=== PATIENT | female | born 1970 | race Caucasian/White ===

== ENCOUNTER 2017-08-21 17:45 | Emergency (ER) | payer MEDICARE, OTHER ==
[~2017-08-21] VITALS: Ht 165.1 cm; Wt 54.4 kg
[~2017-08-21 17:45] MED LIST: AMBIEN10 MG PO; COLACE100 M1 PO; ESTRADIOL1 MG PO; NORCO 10-325 T1 EACH PO; SOMA350 MG PO; ZOLOFT100 MG PO
[2017-08-21] MEDS ORDERED: KETOROLAC TROMETHAMINE 30 MG/ML VIAL IV STA (18:04)
--- NOTE | 2017-08-21 18:44 | Diagnostic Imaging Report ---
EXAM: XR CHEST 1 VIEW DATE: 08/21/2017 6:03 PM INDICATION: Fever COMPARISON: 01/10/2017 FINDINGS: Lines and Tubes: None Heart and Mediastinum: No acute findings. Lungs and Pleura: Minimal opacities in the lung bases statistically represent atelectasis, however, infectious process could have a similar appearance. Bones and Soft Tissues: No acute findings. IMPRESSION: 1. Probable basilar atelectasis. Signed by: Dr. Jaya Durant MD on 08/21/2017 6:40 PM
[2017-08-21 19:13] LABS: BASOPHILS # (AUTO) 0.1 (0.0-0.1); BASOPHILS % 0.9 % (0.0-1.0); EOSINOPHILS # (AUTO) 0.1 (0.0-0.4); EOSINOPHILS % 0.9 % (0.0-6.0); HEMATOCRIT 34.6 % (34.2-44.1); HEMOGLOBIN 11.2 g/dL (12.0-16.0); LYMPHOCYTES % 30.1 % (18.0-39.1); MEAN CORPUSCULAR HEMOGLOBIN 32.6 pg (28-32); MEAN CORPUSCULAR HGB CONC 32.4 g/dL (31-35); MEAN CORPUSCULAR VOLUME 100.6 fL (81-99); MONOCYTES # (AUTO) 0.7 (0.2-0.8); MONOCYTES % 10.8 % (4.4-11.3); NEUTROPHILS # (AUTO) 3.8 (2.1-6.9); NEUTROPHILS % 57.2 % (38.7-80.0); PLATELET COUNT 340 x10e3/uL (140-360); RED BLOOD COUNT 3.44 x10e6/uL (3.6-5.1)
[2017-08-21 19:33] LABS: ALANINE AMINOTRANSFERASE 7 IU/L (0-55); ALBUMIN 3.4 g/dL (3.5-5.0); ALBUMIN/GLOBULIN RATIO 1.2 (0.8-2.0); ALKALINE PHOSPHATASE 57 IU/L (40-150); ANION GAP 13.2 mmol/L (8-16); BLOOD UREA NITROGEN 16 mg/dL (7-26); BUN/CREATININE RATIO 21 (6-25); CALCIUM 8.2 mg/dL (8.4-10.2); CARBON DIOXIDE 24 mmol/L (22-29); CHLORIDE 103 mmol/L (98-107); CREATINE KINASE 24 IU/L (29-168); CREATININE, SERUM 0.76 mg/dL (0.57-1.11); EST GLOMERULAR FILTRATION RATE > 60 ML/MIN (60-); GLUCOSE 96 mg/dL (74-118); LIPASE 57 U/L (8-78); POTASSIUM 4.2 mmol/L (3.5-5.1); SODIUM 136 mmol/L (136-145)
[2017-08-21 19:40] LABS: TROPONIN I < 0.001 ng/mL (0-0.300)
[2017-08-21 20:10] LABS: BILIRUBIN,URINE NEGATIVE (NEGATIVE); CLARITY,URINE CLEAR (CLEAR); COLOR,URINE YELLOW (YELLOW); KETONES,URINE NEGATIVE (NEGATIVE); LEUKOCYTE ESTERASE ,URINE NEGATIVE (NEGATIVE); NITRITE,URINE NEGATIVE (NEGATIVE); PROTEIN,URINE DIPSTICK NEGATIVE (NEGATIVE); URINE UROBILINOGEN 0.2 mg/dL (0.2 - 1)
[2017-08-21] MEDS ORDERED: CARAFATE1 GM PO (20:10)
[2017-08-21] MEDS ORDERED: GABAPENTIN300 MG PO (20:10)
[2017-08-21] MEDS ORDERED: TYLENOL325 MG PO (20:10)
[2017-08-21 20:30] LABS: BACTERIA,URINE FEW /HPF; EPITHELIAL CELLS,URINE MODERATE /LPF; RBC,URINE 0-5 /HPF (0-5); WBC,URINE (MAN) 0-5 /HPF (0-5)
[2017-08-21 21:52] VITALS: BP 124/65
== END 2017-08-21 21:53 | disposition home or self-care (01) ==
LOC: ER 17:45
DX: J06.9 Acute upper respiratory infection, unspecified (principal); J45.909 Unspecified asthma, uncomplicated; Z85.828 Personal history of other malignant neoplasm of skin; K57.92 Diverticulitis of intestine, part unspecified, without perforation or abscess without bleeding; G89.29 Other chronic pain
CPT/HCPCS: 36415; 71010; 80053; 81001; 82550; 82553; 83690; 84484; 84702; 85025; 87086; 87400; 93005; 99284; J1885

== ENCOUNTER 2019-04-06 05:34 | Inpatient (IN) | payer MEDICARE, OTHER ==
[~2019-04-06] VITALS: Ht 165.1 cm; Wt 81.2 kg
[~2019-04-06 05:34] MED LIST changes: +CARAFATE1 GM PO; +GABAPENTIN300 MG PO; +TYLENOL325 MG PO
[2019-04-06] MEDS ORDERED: SODIUM CHLORIDE 0.9% 1000ML 1,000 ML IV STA (05:35)
[2019-04-06] MEDS ORDERED: ONDANSETRON HCL INJ 2MG/ML 2ML 2 MG/ML VIAL IV STA (05:35)
[2019-04-06] MEDS ORDERED: MORPHINE SULFATE INJ 4 MG/ML INJ 1ML IV STA (05:35)
--- OUTSIDE RECORDS SUMMARY | 2019-04-06 05:37 | XMS REPORT ---
Author Author Zahira Diaz Organization [employer] Address Unknown Phone Unavailable Care Team Providers Care Associate Editor Name Role Phone Zahira Diaz CP Unavailable Allergies No Known Allergies Problems Problem Type Condition Code Onset Dates Condition Status Problem Inflammatory arthritis M19.90 Active Medications No Known Medications Results No Known Results Summary Purpose [employer] Submission
--- OUTSIDE RECORDS SUMMARY | 2019-04-06 05:37 | XMS REPORT ---
Author Author Zahira Diaz Organization [employer] Address Unknown Phone Unavailable Care Team Providers Care Darkroom Technician Name Role Phone Zahira Diaz CP Unavailable Allergies, Adverse Reactions, Alerts Substance Reaction Event Type N.K.D.A. Info Not Available Non Drug Allergy Encounters Encounter Location Date [facility] November 05, 2015 Problems Problem Type Condition ICD-9 Code Onset Dates Condition Status Assessment Chronic pain G89.29 Active Assessment Lumbago M54.5 Active Assessment Cervicalgia M54.2 Active Assessment Radicular pain M54.10 Active Medications Medication Code System Code Instructions Start Date End Date Status Dosage Lyrica MEDISPAN [address]-31 100 MG Orally Twice a day November 05, 2015 Active 1 capsule Soma MEDISPAN [address]-23 250 MG Orally Four times a day Active 1 tablet as needed Gabapentin MEDISPAN [address]-41 600 MG Orally Three times a day Active 1 capsule Meloxicam MEDISPAN [address]-33 15 MG Orally Once a day Active 1 tablet Omeprazole MEDISPAN [address]-59 10 MG Orally Once a day Active 2 capsules [place] MEDISPAN [address]-99 5-325 MG Orally every 6 hrs Active 1 tablet as needed Social History Social History Element Qualifiers Date Reported Smoking status: . Are you a: Current Smoker November 05, 2015 alcohol no. November 05, 2015 Vital Signs Date/Time: November 05, 2015 Height 65 in Blood Pressure Diastolic 73 mm Hg Blood Pressure Systolic 118 mm Hg Weight 155.4 lbs Summary Purpose [employer] Submission
--- OUTSIDE RECORDS SUMMARY | 2019-04-06 05:37 | XMS REPORT ---
Author Author Zahira Diaz Organization [employer] Address Unknown Phone Unavailable Care Team Providers Care Stiff Straw Hat Washer Name Role Phone Zahira Diaz CP Unavailable Allergies, Adverse Reactions, Alerts Substance Reaction Event Type N.K.D.A. Info Not Available Non Drug Allergy Encounters Encounter Location Date pain [facility] November 05, 2015 [facility] November 26, 2015 Problems Problem Type Condition ICD-9 Code Onset Dates Condition Status Assessment Chronic pain G89.29 Active Assessment Lumbago M54.5 Active Assessment Cervicalgia M54.2 Active Assessment Pain of left hand M79.642 Active Assessment Radicular pain M54.10 Active Assessment Pain in right hand M79.641 Active Medications Medication Code System Code Instructions Start Date End Date Status D[facility] [address]-84 15 MG Orally Once a day Active 1 [facility] [address]-32 100 MG Orally Twice a day Active 1 capsule [place] [facility] [address]-97 10-325 MG Orally every 6 hrs Active 1 tablet as needed Soma MEDISPAN [address]-97 350 MG Orally Four times a day Active 1 tablet as needed [facility] [address]-88 40 MG Orally Once a day Active 1 capsule Gabapentin [facility] [address]-84 600 MG Orally Three times a day Active 1 capsule Lyrica [facility] [address]-83 100 MG Orally Twice a day November 05, 2015 Active 1 capsule Social History Social History Element Qualifiers Date Reported Smoking status: . Are you a: Current Smoker November 26, 2015 alcohol no. November 26, 2015 Vital Signs Date/Time: November 26, 2015 Height 65 in Blood Pressure Diastolic 69 mm Hg Blood Pressure Systolic 106 mm Hg Weight 159 lbs Summary Purpose [employer] Submission
--- OUTSIDE RECORDS SUMMARY | 2019-04-06 05:37 | XMS REPORT | Continuity of Care Document ---
Author Author Shoulder Options [facility] [place] [employer] Address Unknown Phone Unavailable Care Team Providers Care Shelf Filler Name Role Phone [facility] [employer] Information Exchange Unavailable Unavailable Problems Problem Status Onset Date Classification Date Reported Comments Source Inflammatory arthritis Active Problem 10/22/2016 Zahira Najam Stiffness of right wrist joint Active Diagnosis 12/16/2015 Zahira Najam Pain in right wrist Active Diagnosis 12/16/2015 Zahira Najam Chronic pain Active Diagnosis 04/15/2016 Zahira Najam Lumbago Active Diagnosis 04/15/2016 Zahira Najam Cervicalgia Active Diagnosis 11/27/2015 Zahira Najam Radicular pain Active Diagnosis 11/27/2015 Zahira Najam Pain of left hand Active Diagnosis 11/27/2015 Zahira Najam Pain in right hand Active Diagnosis 11/27/2015 Zahira Najam High risk medication use Active Diagnosis 04/15/2016 Zahira Najam Counseling NOS Active Diagnosis 04/15/2016 Zahira Najam Nasal congestion Active Diagnosis 04/15/2016 Zahira Najam Rash Active Diagnosis 04/15/2016 Zahira Najam Medications Medication Details Route Status Patient Instructions Ordering Provider Order Date Source Triamcinolone Acetonide 1 application to affected area Externally Active 0.5 % Externally Twice a day to feet Najam 04/14/2016 Zahira Najam Hydroxychloroquine Sulfate 2 tabs Orally Active 200 MG Orally Once a day Najam 01/07/2016 Zahira Najam Lyrica 1 capsule Orally Active 100 MG Orally Twice a day Najam 11/05/2015 Zahira Najam Lyrica 1 capsule Orally Active 100 MG Orally tid Najam Zahira Najam Soma 1 tablet as needed Orally Active 250 MG Orally Four times a day Naja Zahira Najam Gabapentin 1 capsule Orally No Longer Active 600 MG Orally Three times a day Najam Zahira Najam Meloxicam 1 tablet Orally Active 15 MG Orally Once a day Najam Zahira Najam Omeprazole 2 capsules Orally Active 10 MG Orally Once a day Narome Zahira Diaz [place] 1 tablet as needed Orally Active 5-325 MG Orally every 6 hrs Najam Zahira Najam [place] 1 tablet as needed Orally Active 10-325 MG Orally every 6 hrs Narome Zahira Diaz Soma 1 tablet as needed Orally Active 350 MG Orally Four times a day Naja Zahira Naambrose Omeprazole 1 capsule Orally Active 40 MG Orally Once a day Narome Zahira Diaz Lyrica TAKE 1 CAPSULE orally Active 100 orally Twice a day Naja Zahira Naambrose Lyrica TAKE 1 CAPSULE orally Active 100 orally Three times a day Benita Zahira Diaz Control 1 tab Oral Active Oral Benita Zahira Joy Vitamin B-12 Unknown intramuscularly Active intramuscularly Once a week Benita Zahira Joy Hydroxychloroquine Sulfate 2 tabs Orally Active 200 MG [facility]ally [facility] Allergies, Adverse Reactions, Alerts Substance Category Reaction Severity Reaction type Status Date Reported Comments Source N.K.D.A. Adverse Reaction Info Not Available Adverse Reaction Active 04/14/2016 Zahira Diaz Immunizations No Data Provided for This Section Results No Data Provided for This Section Pathology Reports No Data Provided for This Section Diagnostic Reports No Data Provided for This Section Consultation Notes No Data Provided for This Section Discharge Summaries No Data Provided for This Section History and Physicals No Data Provided for This Section Vital Signs Vital Sign Value Date Comments Source Height 65 04/14/2016 Zahira Najam Diastolic (mm Hg) 76 04/14/2016 Zahira Najam Systolic (mm Hg) 124 04/14/2016 Zahira Najam Weight 156.6 04/14/2016 Zahira Najam Height 65 01/07/2016 Zahira Najam Diastolic (mm Hg) 61 01/07/2016 Zahira Najam Systolic (mm Hg) 99 01/07/2016 Zahira Najam Weight 160.6 01/07/2016 Zahira Najam Height 65 12/15/2015 Zahira Najam Diastolic (mm Hg) 67 12/15/2015 Zahira Najam Systolic (mm Hg) 129 12/15/2015 Zahira Najam Weight 159 12/15/2015 Zahira Najam Height 65 11/26/2015 Zahira Diaz Diastolic (mm Hg) 69 11/26/2015 Zahira Diaz Systolic (mm Hg) 106 11/26/2015 Zahira Diaz Weight 159 11/26/2015 Zahira Diaz Height 65 11/05/2015 Zahira Diaz Diastolic (mm Hg) 73 11/05/2015 Zahira Diaz Systolic (mm Hg) 118 11/05/2015 Zahira Diaz Weight 155.4 11/05/2015 Zahira Diaz Encounters Location Location Details Encounter Type Encounter Number Reason For Visit Attending Provider ADM Date DC Date Status Source [facility] pain [facility] body [id number] 11/05/2015 11/05/2015 Zahiraruben Joy [facility] body [id number] 11/05/2015 11/05/2015 [facility] pain all over body [id number] 11/05/2015 11/05/2015 Zahira [facility] pain all over body [id number] 11/05/2015 11/05/2015 [facility] pain all over body [id number] 11/05/2015 11/05/2015 Zahira [facility] pain all over body [id number] 11/05/2015 11/05/2015 Zahira [facility] pain all over body [id number] 11/05/2015 11/05/2015 Zahira [facility] pain all over body [id number] 11/05/2015 11/05/2015 Zahiraruben Joy [facility] Follow up- Labs [id number] 11/26/2015 11/26/2015 [facility] Follow up- Labs [id number] 11/26/2015 11/26/2015 [facility] Follow up- Labs [id number] 11/26/2015 11/26/2015 [facility] Follow up- Labs [id number] 11/26/2015 11/26/2015 [facility] Follow up- Labs [id number] 11/26/2015 11/26/2015 [facility] Follow up- Labs [id number] 11/26/2015 11/26/2015 [facility] Follow up- Labs [id number] 11/26/2015 11/26/2015 [facility] Right Wrist MRI [id number] 12/15/2015 12/15/2015 [facility] Right Wrist MRI [id number] 12/15/2015 12/15/2015 [facility] Right Wrist MRI [id number] 12/15/2015 12/15/2015 [facility] Right Wrist MRI [id number] 12/15/2015 12/15/2015 [facility] Right Wrist MRI [id number] 12/15/2015 12/15/2015 [facility] Right Wrist MRI [id number] 12/15/2015 12/15/2015 [facility] Follow up [id number] 01/07/2016 01/07/2016 [facility] Follow up [id number] 01/07/2016 01/07/2016 [facility] Follow up [id number] 01/07/2016 01/07/2016 [facility] Follow up [id number] 01/07/2016 01/07/2016 [facility] Follow up [id number] 01/07/2016 01/07/2016 [facility] pain - needs direction [id number] 02/16/2016 02/16/2016 [facility] pain - needs direction [id number] 02/16/2016 02/16/2016 [facility] pain - needs direction [id number] 02/16/2016 02/16/2016 [facility] pain - needs direction [id number] 02/16/2016 02/16/2016 [facility] Lyrica refill [id number] 03/12/2016 03/12/2016 [facility] Lyrica refill [id number] 03/12/2016 03/12/2016 [facility] Lyrica refill [id number] 03/12/2016 03/12/2016 [facility] lyrica rx [id number] 04/05/2016 04/05/2016 [facility] lyrica rx [id number] 04/05/2016 04/05/2016 [facility] Follow up 3 Month [id number] 04/14/2016 04/14/2016 Zahira Diaz Procedures No Data Provided for This Section Assessment and Plan No Data Provided for This Section Plan of Care No Data Provided for This Section Social History Social History Date Source Social History ElementQualifiersDate Reported Smoking status: . Are you a: Current Smoker Apr 14, 2016 alcohol no. Apr 14, 2016 04/14/2016 Zahira Diaz Family History No Data Provided for This Section Advance Directives No Data Provided for This Section Functional Status No Data Provided for This Section
--- OUTSIDE RECORDS SUMMARY | 2019-04-06 05:37 | XMS REPORT | Clinical Summary ---
Author Author [facility] Organization [facility] Address Unknown Phone Unavailable Care Team Providers Care Edge Blacker Name Role Phone Asked, No Pcp PCP Unavailable Allergies Not on File Medications End Date Status Medication Sig Dispensed Refills Start Date Active eszopiclone (LUNESTA) 2 Take 2 mg by 0 MG tablet mouth nightly. Take immediately before bedtime Active HYDROcodone-acetaminophen Take 1 tablet 0 (NORCO) 10-325 mg per by mouth tablet every 6 (six) hours. Active carisoprodol (SOMA) 350 Take 350 mg 0 MG tablet by mouth 3 (three) times a day. Active gabapentin (NEURONTIN) Take 600 mg 0 600 mg tablet by mouth 2 (two) times a day. Active medroxyPROGESTERone 150 Inject 150 mg 1 Syringe 6 06/02/201 mg/mL syringeIndications: into the 7 Encounter for shoulder, surveillance of thigh, or injectable contraceptive, buttocks Encounter for every 3 contraceptive management, (three) unspecified type months. Active omeprazole (PriLOSEC) 40 Take 1 180 capsule 1 MG capsuleIndications: capsule (40 7 Gastroesophageal reflux mg total) by disease with esophagitis mouth 2 (two) times a day. 08/03/2018 ondansetron ODT Take 1 tablet 30 tablet 0 (ZOFRAN-ODT) 4 MG (4 mg total) 8 disintegrating tablet by mouth every 8 (eight) hours as needed for nausea or vomiting for up to 10 days. 08/23/2018 atorvastatin (LIPITOR) 10 Take 4 120 tablet 0 MG tablet tablets (40 8 mg total) by mouth nightly for 30 days. 08/03/2018 guaiFENesin (ROBITUSSIN) Take 10 mL 473 mL 0 100 mg/5 mL syrup (200 mg 8 total) by mouth every 4 (four) hours as needed for congestion for up to 10 days. 08/24/2018 aspirin 81 mg chewable Chew 1 tablet 30 tablet 0 tablet (81 mg total) 8 daily for 30 days. 08/24/2018 nicotine (NICODERM CQ) 21 Place 1 patch 30 patch 0 mg/24 hr on the skin 8 daily for 30 days. 08/23/2018 albuterol (PROAIR Inhale 2 18 g 11 HFA,PROVENTIL puffs every 6 8 HFA,VENTOLIN HFA) 90 (six) hours mcg/actuation inhaler as needed for wheezing for up to 30 days. 07/29/2018 predniSONE (DELTASONE) 20 Take 1 tablet 5 tablet 0 mg tablet (20 mg total) 8 by mouth daily for 5 days. Active Problems Problem Noted Date Bronchitis with bronchospasm 07/23/2018 Gastroesophageal reflux disease 08/04/2017 Pleural effusion, bilateral 07/07/2017 Acute pulmonary edema 07/07/2017 Sepsis 07/04/2017 Pneumonia 07/04/2017 Acute encephalopathy 07/04/2017 Anemia 07/04/2017 Lactic acidosis 07/04/2017 Acute respiratory failure with hypoxemia 07/01/2017 Psychosis 06/30/2017 Sprain of medial collateral ligament of left knee 02/09/2017 Alcohol withdrawal 01/25/2017 RA (rheumatoid arthritis) 12/23/2016 Chronic midline low back pain with sciatica 12/23/2016 Acute gastric ulcer 12/23/2016 Encounters Care Team Description Date Type Specialty Steven Long MD Roberts, Daryl Rodriguez, Lety Dai MD Bronchitis with bronchospasm (Primary Dx); Hematemesis without nausea; Chest pain, unspecified type 07/23/2018 Emergency General Internal Medicine - 07/24/2018 07/23/2018 Travel Yordan Hughes MD Encounter for surveillance of injectable contraceptive; Encounter for contraceptive management, unspecified type 06/17/2018 Refill Family Medicine after 04/05/2018 Social History Date Tobacco Use Types Packs/Day Years Used Current Every Day Smoker Cigarettes 1.5 35 Smokeless Tobacco: Never Used Tobacco Cessation: Ready to Quit: No; Counseling Given: No Drinks/Week oz/Week Comments Alcohol Use 0 Glasses of wine 12 Cans of beer 0 Shots of liquor 12.0 Yes Sex Assigned at Date Recorded Not on file Industry Job Start Date Occupation Not on file Not on file Not on file Travel End Travel History Travel Start No recent travel history available. Last Filed Vital Signs Reading Time Taken Comments Vital Sign 127/63 07/24/2018 5:18 PM [facility] Blood Pressure 98 07/24/2018 5:18 PM [facility]IG [facility]ILLER Pulse 36.6 C (97.9 F) 07/24/2018 5:18 PM JIG [facility]ILLER Temperature 17 07/24/2018 5:18 PM JIG FILLER Respiratory Rate 97% 07/24/2018 5:18 PM [facility]IG FILLER Oxygen Saturation - - Inhaled Oxygen Concentration 74.5 kg (164 lb 3.9 oz) 07/23/2018 8:51 PM JIG [facility]ER Weight 165.1 cm (5' 5") 07/23/2018 8:51 PM JIG FILLER Height 27.33 07/23/2018 8:51 PM JIG FILLER Body Mass Index Plan of Treatment Health Maintenance Due Date Last Done Comments CERVICAL CANCER SCREENING 1991 INFLUENZA VACCINE 03/08/2019 Procedures Comments Procedure Name Priority Date/Time Associated Diagnosis CV STRESS TEST NUCLEAR Routine 07/24/2018 CARDIO 4:40 PM JIG [facility]ILLER TROPONIN Timed 07/24/2018 3:06 PM [facility]ER ECHOCARDIOGRAM 2D Routine 07/24/2018 COMPLETE W MMODE SPECTRAL 1:40 PM JIG FILLER COLOR DOPPLER ([id number]) TROPONIN Timed 07/24/2018 9:05 AM JIG FILLER TROPONIN Timed 07/24/2018 4:31 AM JIG FILLER ESTIMATED GFR Timed 07/24/2018 4:31 AM JIG FILLER HEMOGLOBIN A1C Timed 07/24/2018 4:31 AM JIG FILLER LIPID PANEL Timed 07/24/2018 4:31 AM JIG FILLER HC COMPLETE BLD COUNT Timed 07/24/2018 W/AUTO DIFF 4:31 AM JIG FILLER BASIC METABOLIC PANEL Timed 07/24/2018 4:[address] ABDOMEN PELVIS WO STAT 07/24/2018 CONTRAST 2:15 AM JIG FILLER LACTIC ACID LEVEL, SEPSIS Timed 07/23/2018 - NOW AND REPEAT 2X EVERY 11:55 PM JIG FILLER 3 HOURS TROPONIN Timed 07/23/2018 11:55 PM JIG FILLER LACTIC ACID LEVEL, SEPSIS Timed 07/23/2018 - NOW AND REPEAT 2X EVERY 8:10 PM JIG FILLER 3 HOURS TROPONIN Timed 07/23/2018 8:10 PM JIG FILLER ECG 12-LEAD STAT 07/23/2018 7:44 PM JIG FILLER XR CHEST 2 VW STAT 07/23/2018 5:04 PM JIG [facility]ER LACTIC ACID LEVEL, SEPSIS STAT 07/23/2018 - NOW AND REPEAT 2X EVERY 3:50 PM JIG FILLER 3 HOURS PARTIAL THROMBOPLASTIN STAT 07/23/2018 TIME (PTT) 3:50 PM JIG FILLER PROTHROMBIN TIME WITH INR STAT 07/23/2018 3:50 PM JIG FILLER ESTIMATED GFR STAT 07/23/2018 3:50 PM JIG FILLER B NATRIURETIC PEPTIDE STAT 07/23/2018 3:50 PM JIG FILLER TROPONIN STAT 07/23/2018 3:50 PM JIG F[facility]ER COMPREHENSIVE METABOLIC STAT 07/23/2018 PANEL 3:50 PM JIG [facility]ILLER HC COMPLETE BLD COUNT STAT 07/23/2018 W/AUTO DIFF 3:50 PM JIG [facility]ILLER HCG QUALITATIVE, URINE Routine 07/23/2018 SCREEN 3:40 PM JIG FILLER URINE DRUGS OF ABUSE Routine 07/23/2018 SCREEN 3:40 PM [facility]IG [facility]ER URINALYSIS SCREEN AND STAT 07/23/2018 MICROSCOPY, WITH REFLEX 3:40 PM JIG FILLER TO CULTURE INFLUENZA ANTIGEN Routine 07/23/2018 3:40 PM J[facility]ER RESPIRATORY PATHOGEN Routine 07/23/2018 PANEL 3:40 PM JIG [facility]ER ECG 12-LEAD STAT 07/23/2018 3:23 PM JIG FILLER after 04/05/2018 Results * Cv stress test (07/24/2018 4:40 PM JIG FILLER) Resting HR 102 [facility] Resting BP 127 [facility] Peak MET 1.0 [facility] Achieved Protocol Name MINH [facility] Time in 00:01:01 [facility] Exercise Phase Max Systolic BP 143 [facility] Max Diastolic 71 [facility] BP Max Heart Rate 146 [facility] Max Predicted 173 [facility] Heart Rate Target HR (220 - Age)*100% [facility] Formula Test Indication Chest Discomfort [facility] Arrhy During Ex none [facility] ECG Interp Normal [facility] Before EX ECG Interp none [facility] During Ex Ex Summary Normal stress test [facility] Comment Chest Pain none [facility] Statement Overall HR appropriate [facility] Response to Exercise Overall BP normal resting BP - [facility] Response To appropriate response Exercise Reason for Protocol completed [facility] Termination Stress Test Normal stress test-No [facility] Impression significant ST changes noted; complaints of mild chest pressure, rated 3/10.-NE GATIVE STRESS TEST- Specimen Narrative Performed At Performing Organization Address City/State/Zipcode Phone Number [facility] M[facility] [address] [place] [address] * Troponin (07/24/2018 3:06 PM JIG FILLER) Only the most recent of 6 results within the time period is included. Troponin <0.30 0.00 - 0.30 ng/mL [place] [facility] Comment: RELIGION AMBRIZ 0.11 - 1.49 [facility] indicate increased risk of acute coronary syndrome. >=1.5 ng/ml Consistent with acute myocardial infarction. The diagnostic value of a single normal or non-diagnostic result is questionable.Serial samples at 2-6 hour intervals are required to rule out acute myocardial injury. Specimen Plasma specimen Performing Organization Address City/State/Zipcode Phone Number [facility] DEPARTMENT OF [address] [place] [address] PATHOLOGY AND GENOMIC MEDICINE [facility] [address] [place] [address] [facility] * Echocardiogram complete w contrast and 3D if needed (07/24/2018 1:40 PM JIG FILLER) Velocity Ratio 0.94 m/s [facility] (V1/V2) IVS,d 0.92 cm [facility] EF 53.51 % [facility] LVPWD,d 1.03 cm [facility] AoV Mean PG 5.99 mmHg [facility] AV LVOT peak 9.48 mmHg [facility] gradient MV mean 2.18 mmHg [facility] gradient MV valve area p 3.66 cm2 [facility] 1/2 method PV Pk Grad 7.49 mmHg [facility] E/A ratio 0.70 [facility] E wave 207.10 msec [facility] decelartion time LVOT Diam,S 2.00 cm [facility] LVOT area 3.14 cm2 [facility] LVOT Vmax 1.61 m/s [facility] LVOT VTI 0.28 m [facility] AoV Peak PG 11.02 mmHg [facility] MV Peak E Tonio 0.63 m/s [facility] MV stenosis 60.06 ms [facility] pressure 1/2 time MV Peak A Tonio 0.90 m/s [facility] Ao Root 2.95 cm [facility] Diameter AoV Area, Vmax 2.91 cm2 [facility] AoV Area, VTI 2.59 cm2 [facility] AoV Vmax 1.72 m/s [facility] IVS/LVPW,2D 0.90 [facility] Left Atrium 3.81 cm [facility] Dimension Anterior LV,d 4.60 cm [facility] LV,s 3.33 cm [facility] PV VMAX 1.37 m/s [facility] TR Vpeak 2.43 mm/s [facility] MV E A ratio 0.71 [facility] TR pk grad 22.69 mmHg [facility] MR peak grad 4.13 mmHg [facility] Ao Root 2.95 cm [facility] Diameter LV SYS VOL 45.21 ml [facility] LV ABREU VOL 97.25 ml [facility] LA area s A4C 14.48 cm2 [facility] LA Vol MOD A4C 34.41 ml [facility] LV SV Teich 2D 52.05 ml [facility] LV Vol s Teich 45.21 ml [facility] PSAX MV Vmax 1.02 m [facility] MV VTI Tips 0.18 m [facility] AoV Vmn 1.15 [facility] IVS s 2D 1.21 [facility] LV FS Cube 2D 27.52 [facility] LV FS Teich 2D 27.52 [facility] AoV VTI 0.29 m [facility] LV EF,2D 61.92 % [facility] MV AE ratio 1.41 [facility] LVOT Vmn 1.03 [facility] Aov area Vmn 2.69 cm2 [facility] LVOT mean grad 4.93 mmHg [facility] MAX Pred HR 172.07 [facility] 85 of MPHR 146.26 [facility] Calc MPHR 172.07 bpm [facility] IVS pct thck 31.13 % [facility] PLAX LV SV Cube 2D 60.21 ml [facility] LV vol d cube 97.23 ml [facility] 2D LV vol s cube 37.02 ml [facility] 2D LVPW pct thck 17.35 % [facility] PLAX LVPW s PLAX 1.20 cm [facility] MV Decel slope 3.06 m/s2 [facility] Pred Exer Dur 9.21 [facility] R1 Pred METS R1 8.47 [facility] Specimen Narrative Performed At [facility] Left ventricular systolic function is normal. Spectral Doppler shows impaired relaxation pattern of left ventricular diastolic filling. Stage II diastolic dysfunction. Performing Organization Address City/[facility]/Zipcode Phone Number [facility] [address] [place] [address] * Estimated GFR (07/24/2018 4:31 AM JIG FILLER) Only the most recent of 2 results within the time period is included. Estimated GFR >=90 mL/min/1.73 m2 [facility] [facility] Comment: [facility] G1 >=90 Normal or high G2 60-89Mildly decreased [id number] Mildly to moderately decreased [id number] Moderately to severely decreased G4 15-29Severely decreased G5 <15Kidney failure The eGFR was calculated using the Chronic Kidney Disease Epidemiology Collaboration (CKD-EPI) equation. Interpretation is based on recommendations of the National Kidney Foundation-Kidney Disease Outcomes Quality Initiative (NKF-KDOQI) published in 2014. Specimen Plasma specimen Performing Organization Address City/State/Zipcode Phone Number [facility] DEPARTMENT OF [address] [place] [address] PATHOLOGY AND GENOMIC MEDICINE [facility] [address] [place], [place] [id number] [place] [address] * CBC with platelet and differential (07/24/2018 4:31 AM JIG FILLER) Only the most recent of 2 results within the time period is included. WBC 3.9 (L) 4.2 - 11.0 k/uL [facility] RBC 3.39 (L) 4.04 - 5.86 m/uL [facility] HGB 10.7 (L) 11.5 - 15.3 g/dL [facility] HCT 33.9 (L) 34.0 - 45.0 % [facility] MCV 100.0 (H) 80.0 - 98.0 fL [facility] MCH 31.6 27.0 - 34.0 pg [facility] MCHC 31.6 31.5 - 36.5 g/dL [facility] RDW - SD 60.8 (H) 37.0 - 51.0 fL [facility] MPV 9.2 7.4 - 10.4 fL [facility] Platelet count 235 150 - 400 k/uL [facility] Nucleated RBC 0.00 /100 WBC [facility] Neutrophils 81.2 (H) 36.0 - 66.0 % [facility] Lymphocytes 11.2 (L) 24.0 - 44.0 % [facility] Monocytes 6.5 (H) 0.0 - 6.0 % [facility] Eosinophils 0.0 0.0 - 6.0 % [facility] Basophils 0.3 0.0 - 1.2 % [facility] Immature 0.8 0.0 - 1.0 % [facility] granulocytes [facility] Specimen Blood Performing Organization Address City/[facility]/Zipcode Phone Number [facility] DEPARTMENT OF [address] [place] [phone] PATHOLOGY AND GENOMIC MEDICINE [address] * Hemoglobin A1c (07/24/2018 4:31 AM JIG FILLER) [facility] Hemoglobin A1C 4.8 4.0 - 6.0 % [facility] Comment: NAOMY AM[facility]RIZ [facility] Less than 6% - Goal of therapy for Type II Diabetes Less than 7%-Goal of therapy for Type I Diabetes Less than 8%-Accepta ble control for Type I or Type II Diabetes Greater than 8%-Unacceptabl e control; action indicated. ([id number]) Specimen Blood Performing Organization Address City/[facility]/Zipcode Phone Number [place] [address] [place] [phone] PATHOLOGY AND [facility] MEDICINE [address] * Lipid panel (07/24/2018 4:31 AM JIG FILLER) [facility] Cholesterol 229 (H) 0 - 199 mg/dL [facility] Triglycerides 56 0 - 149 mg/dL [facility] HDL cholesterol 137 40 - 9,999 mg/dL [facility] LDL cholesterol 101 (H)Comment: Result 0 - 99 mg/dL [facility] obtained by direct LDL [facility] Lipid panel See below [facility] interpretation Comment: [facility] Total Cholesterol [facility] (mg/dL) [facility] LDL Cholesterol (mg/dL) <200 Desirable <100 Optimal 200-239Borderline -[id number] 29Near or above optimal >=240High 130-159Borderline- high 160-189High >=190Very high HDL Cholesterol (mg/dL) Triglycerides (mg/dL) <40Low <150 Normal >=60 High 150-199Borderline- high 200-499High >=500Very high Risk Catergories that modify LDL goals. Risk Catergories LDL goal (mg/dL) CHD and CHD risk equivalent <100 (10-year risk >20%) Multiple (2+) risk factors <130 (10-year risk=<20%) 0-1 risk factors <160 (<10-year risk) Defining levels of lipids in metabolic syndrome Triglycerides >=150 mg/dL HDL Cholesterol Men <40 mg/dL Women <50 mg/dL Non-HDL cholesterol is a second target for therapy in persons with high triglycerides (>=200 mg/dL) Specimen Plasma specimen Performing Organization Address City/[facility] Phone Number [facility] DEPARTMENT [facility] [place] [address] PATHOLOGY AND GENOMIC MEDICINE [facility] [address] * Basic metabolic panel (07/24/2018 4:31 AM JIG FILLER) Sodium 138 135 - 150 mEq/L [facility] Potassium 4.2 3.5 - 5.0 mEq/L [facility] Chloride 104 98 - 112 mEq/L [facility] CO2 23 (L) 24 - 31 mmol/L [facility] Anion gap 11@ANIO 7 - 15 mEq/L [facility] BUN 10 7 - 18 mg/dL [facility] Creatinine 0.60 0.50 - 0.90 mg/dL [facility] Glucose 151 (H) 65 - 100 mg/dL [facility] Calcium 9.4 8.3 - 10.2 mg/dL [facility] Specimen Plasma specimen Performing Organization Address City/[facility]/Zipcode Phone Number [place] [address] [place] [address] PATHOLOGY AND GENOMIC MEDICINE [facility] [address] * CT Abdomen Pelvis Wo Contrast (07/24/2018 2:15 AM JIG FILLER) Specimen Narrative Performed At Examination:CT ABDOMEN PELVIS WO CONTRAST [facility] Clinical History: Abd paingastroenteritis or colitis suspected Comparison: None. Findings: CT scans are performed using radiation dose reduction techniques.Technical factors are evaluated and adjusted to ensure appropriate moderation of exposure.Automated dose management technology is applied to adjust radiation exposure while achieving a diagnostic quality image. CT scan of the abdomen and pelvis was performed without intravenous contrast. The liver, spleen, pancreas, and left adrenal gland are unremarkable. Right adrenal nodule is noted with Hounsfield unit measurement of 0 is consistent with adenoma. The kidneys are within normal limits without hydronephrosis or urinary calculus. The appendix is visualized and unremarkable. No bowel wall thickening or fat stranding is seen. No bowel dilatation is seen. Scattered colonic diverticuli are noted especially at the sigmoid colon but no surrounding fat stranding is seen. The patient is status post gastric surgery. No free air or fluid is seen. Urinary bladder is unremarkable. The visualized lung bases are clear. IMPRESSION: 1. Colonic diverticulosis without evidence of inflammation. 2. Right adrenal nodule most consistent with adenoma. 3. Otherwise no acute abnormality identified in the abdomen or pelvis. [facility]-[id number] Procedure Note Interface, Radiology Results Incoming - 07/24/2018 2:53 AM JIG FILLER Examination: CT ABDOMEN PELVIS WO CONTRAST Clinical History: Abd pain gastroenteritis or colitis suspected Comparison: None. Findings: CT scans are performed using radiation dose reduction techniques. Technical factors are evaluated and adjusted to ensure appropriate moderation of exposure. Automated dose management technology is applied to adjust radiation exposure while achieving a diagnostic quality image. CT scan of the abdomen and pelvis was performed without intravenous contrast. The liver, spleen, pancreas, and left adrenal gland are unremarkable. Right adrenal nodule is noted with Hounsfield unit measurement of 0 is consistent with adenoma. The kidneys are within normal limits without hydronephrosis or urinary calculus. The appendix is visualized and unremarkable. No bowel wall thickening or fat stranding is seen. No bowel dilatation is seen. Scattered colonic diverticuli are noted especially at the sigmoid colon but no surrounding fat stranding is seen. The patient is status post gastric surgery. No free air or fluid is seen. Urinary bladder is unremarkable. The visualized lung bases are clear. IMPRESSION: 1. Colonic diverticulosis without evidence of inflammation. 2. Right adrenal nodule most consistent with adenoma. 3. Otherwise no acute abnormality identified in the abdomen or pelvis. [facility]-[id number] Performing Organization Address City/State/Zipcode Phone Number [facility] [address] [place] [address] * Lactic acid level, SEPSIS - Now and repeat 2x every 3 hours (07/23/2018 11:55 PM JIG FILLER) Only the most recent of 3 results within the time period is included. Lactic acid 2.1 0.5 - 2.2 mmol/L [facility] Specimen Blood Performing Organization Address City/[facility] Phone Number [facility] OF [address] [place] [address] PATHOLOGY AND GENOMIC MEDICINE [facility] [address] * ECG 12 lead (07/23/2018 7:44 PM JIG FILLER) Only the most recent of 2 results within the time period is included. Ventricular 94 [facility] rate Atrial rate 94 [facility] HI interval 116 [facility] QRSD interval 90 [facility] QT interval 368 [facility] QTC interval 460 [facility] P axis 1 48 [facility] QRS axis 1 52 [facility] T wave axis 65 [facility] EKG impression Normal sinus rhythm-Normal [facility] ECG-In automated comparison with ECG of 23-JUL-2018 15:23,-No significant change was found- Specimen Narrative Performed At Performing Organization Address [facility] Phone Number [facility] [address] [place] [address] * XR Chest 2 Vw (07/23/2018 5:04 PM JIG FILLER) Specimen Narrative Performed At EXAMINATION:XR CHEST 2 VW [facility] CLINICAL HISTORY:Shortness of breath COMPARISON:November 06, 2017 IMPRESSION: 1.Lungs are clear and the heart size is normal. 2.The vessels are not congested. There are no pleural effusions. 3.There are postoperative changes in the lower cervical spine and upper abdomen. [facility]-[id number] Procedure Note Hm Interface, Radiology Results Incoming - 07/23/2018 5:16 PM JIG FILLER EXAMINATION: XR CHEST 2 VW CLINICAL HISTORY: Shortness of breath COMPARISON: November 06, 2017 IMPRESSION: 1. Lungs are clear and the heart size is normal. 2. The vessels are not congested. There are no pleural effusions. 3. There are postoperative changes in the lower cervical spine and upper abdomen. [id number] Performing Organization Address City/State/Zipcode Phone Number [facility] [address] [place] [address] * Partial thromboplastin time, activated (07/23/2018 3:50 PM JIG FILLER) PTT 29.8 23.0 - 36.0 sec [facility] Comment: NAOMY AMBRIZ PTT therapeutic range for JILLIAN unfractionated heparin is [facility] 61.0-112.0 seconds which corresponds to Anti-Xa 0.3-0.7 U/ml. Note:Change in Panic Value The PTT Panic Value is changing from 110 sec. to 100 sec. due to new instrumentation and reagents. Correlation studies have been performed to validate this result. Specimen Blood Performing Organization Address [facility] Hospitalconv Phone Number [facility] DEPARTMENT [address] [place] [address] * Prothrombin time with INR (07/23/2018 3:50 PM JIG FILLER) Pathologist [facility] Prothrombin 11.7 11.5 - 14.5 sec [facility] time [facility] INR 0.88 [facility] Comment: NAOMY AMBRIZ For patients on anticoagulant JILLIAN therapy, reference ranges [facility] below: Indication: INR Value Treatment of Venous Thrombosis, 2.0-3.0 pulmonary emboli, or prophylaxis of a venous thrombosis, or systemic emboli. High dose, high risk patients 3.0-4.5 with mechanical valves. NOTE:INR values over 3.0 are sometimes associated with gastrointestinal hemorrhage, especially values over 4.0. Specimen Blood Performing Organization Address [facility]/Zipcode Phone Number [facility] DEPARTMENT OF [address] [place] [address] PATHOLOGY [address] * B natriuretic peptide (07/23/2018 3:50 PM JIG FILLER) BNP 59 0 - 100 pg/mL [facility] Specimen Blood Performing Organization Address City/[facility]/Zipcode Phone Number [facility] [place] [address] [place] [address] [place] [address] PATHOLOGY AND GENOMIC MEDICINE [place] [id number] * Comprehensive metabolic panel (07/23/2018 3:50 PM JIG FILLER) [facility] Sodium 138 135 - 150 mEq/L [facility] Potassium 4.1 3.5 - 5.0 mEq/L [facility] Chloride 104 98 - 112 mEq/L [facility] CO2 20 (L) 24 - 31 mmol/L [facility] Anion gap 14@ANIO 7 - 15 mEq/L [facility] BUN 7 7 - 18 mg/dL [facility] Creatinine 0.60 0.50 - 0.90 mg/dL [facility] Glucose 81 65 - 100 mg/dL [facility] Calcium 9.0 8.3 - 10.2 mg/dL [facility] Protein 6.9 6.3 - 8.3 g/dL [facility] Albumin 3.4 (L) 3.5 - 5.0 g/dL [facility] A/G ratio 1.0 0.7 - 3.8 [facility] Alkaline 85 0 - 104 U/L [facility] phosphatase [facility] [facility] AST 63 (H) 10 - 35 U/L [facility] ALT 50 5 - 50 U/L [facility] Total bilirubin 0.4 0.2 - 1.2 mg/dL [facility] Specimen Plasma specimen Performing Organization Address City/State/Zipcode Phone Number [facility] DEPARTMENT [facility] [place] [address] PATHOLOGY AND GENOMIC MEDICINE [facility] [address] * Respiratory pathogen panel (07/23/2018 3:40 PM JIG FILLER) [facility] Respiratory Negative for all pathogens [place] pathogen panel tested: RELIGION Negative for Adenovirus [facility] Negative for Coronavirus HKU1 Negative for Coronavirus NL63 Negative for Coronavirus 229E Negative for Coronavirus OC43 Negative for Human Metapneumovirus Negative for Rhinovirus/Enterovirus Negative for Influenza A Negative for Influenza A/H1 Negative for Influenza A/H3 Negative for Influenza A/H1-2009 Negative for Influenza B Negative for Parainfluenza Virus 1 Negative for Parainfluenza Virus 2 Negative for Parainfluenza Virus 3 Negative for Parainfluenza Virus 4 Negative for Respiratory Syncytial Virus Negative for Bordetella pertussis Negative for Chlamydophila pneumoniae Negative for Mycoplasma pneumoniae This real-time PCR assay detects the presence of nucleic acids (RNA or DNA) for the respiratory pathogens listed. A result of "Not-detected" does not exclude the possibility of the presence of one or more pathogens at concentrations less than the detectable limits of the assay. Comment: Specimen Information Specimen Source: Nasopharyngeal Specimen Site: Right Specimen Nasopharyngeal - Right Performing Organization Address City/State/Zipcode Phone Number [facility] DEPARTMENT OF [address] [place] [address] PATHOLOGY AND GENOMIC MEDICINE [address] * Urinalysis screen and microscopy, with reflex to culture (07/23/2018 3:40 PM JIG FILLER) Specimen site Clean catch [facility] Color, UA Colorless [facility] Appearance, UA Clear [facility] Specific 1.002 1.001 - 1.035 [place] gravity, [facility] pH, UA 6.0 5.0 - 8.5 [facility] Protein, UA Negative Negative [facility] Glucose, UA Negative Negative [facility] Ketones, UA Negative Negative [facility] Bilirubin, UA Negative Negative [facility] Blood, UA Small (A) Negative [facility] Nitrite, UA Negative Negative [facility] Urobilinogen, Negative <2.0 [facility] Leukocyte Negative Negative [place] esterase, UA [facility] Epithelial Few /HPF [place] cells, UA [facility] WBC, UA <1 0 - 5 /HPF [facility] RBC, UA 2 0 - 5 /HPF [facility] Bacteria, UA Trace None seen [facility] Yeast, UA None seen [facility] Yeast with None seen [place] pseudohyphae, [facility] Specimen Urine Performing Organization Address City/[facility] Phone Number [facility] DEPARTMENT OF [address] [phone] PATHOLOGY AND GENOMIC MEDICINE [facility] [address] * hCG qualitative, urine screen (07/23/2018 3:40 PM JIG FILLER) hCG Negative Negative [place] qualitative, Comment: NAOMY AMBRIZ urine The manufacturers stated [facility] sensitivity of HcG test for HOSPITAL serum is >/=10 mIU/ml and urine is >/=20mIU/ml. Specimen Urine Performing Organization Address [facility] Phone Number [facility] DEPARTMENT OF [address] [place] [address] PATHOLOGY AND GENOMIC MEDICINE [facility] [address] * Urine drugs of abuse screen (07/23/2018 3:40 PM JIG FILLER) Pathologist [facility] Amphetamine Negative [place] screen, urine [facility] Barbiturate Negative [place] screen, urine [facility] Benzodiazepine Negative [place] screen, urine [facility] Cannabinoid Positive (A) [place] screen, urine [facility] Cocaine screen, Negative [place] urine [facility] Methadone Negative [place] metabolite [facility] ([facility]), urine [facility] Opiates screen, Positive (A) [place] urine [facility] Phencyclidine Negative [place] screen, urine [facility] Specimen Urine Performing Organization Address [facility] Phone Number [facility] DEPARTMENT OF [address] [facility] [place] [address] PATHOLOGY AND GENOMIC MEDICINE [facility] [address] [facility] [address] * Influenza antigen (07/23/2018 3:40 PM JIG FILLER) Influenza Negative for Influenza A/B [place] antigen antigen. [facility] Comment: JILLIAN Specimen Information HOSPITAL Specimen Source: Nares Specimen Site: Right Specimen Nares - Right Performing Organization Address City/[facility] Phone Number [facility] DEPARTMENT OF [address] [place] [address] PATHOLOGY AND GENOMIC MEDICINE [facility] [address] [place] [address] [facility] after 04/05/2018 Insurance Type Payer Benefit Subscriber ID Effective Phone Address Plan / Dates Group HMO [employer] xxxxxxxxx 2018- -AMERIVANT Present AGE MCR O O [facility] MEDICAID [facility] xxxxxxxxx 2017-P COMM STAR+ resent KYM Advance Directives For more information, please contact: [phone] 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
--- OUTSIDE RECORDS SUMMARY | 2019-04-06 05:38 | XMS REPORT ---
Author Author Zahira Diaz Organization [employer] Address Unknown Phone Unavailable Care Team Providers Care Director Distribution Name Role Phone Zahira Diaz CP Unavailable Encounters Encounter Location Date pain all over body [facility] November 05, 2015 Follow up-Labs [facility] November 26, 2015 Right Wrist MRI [facility] December 15, 2015 Problems Problem Type Condition ICD-9 Code Onset Dates Condition Status Assessment Stiffness of right wrist joint M25.631 Active Assessment Pain in right wrist M25.531 Active Social History Social History Element Qualifiers Date Reported Smoking status: . Are you a: Current Smoker November 26, 2015 alcohol no. November 26, 2015 Vital Signs Date/Time: December 15, 2015 Height 65 in Blood Pressure Diastolic 67 mm Hg Blood Pressure Systolic 129 mm Hg Weight 159 lbs Summary Purpose eClinicalWorks Submission
--- OUTSIDE RECORDS SUMMARY | 2019-04-06 05:38 | XMS REPORT ---
Author Author Zahira Diaz Organization [employer] Address Unknown Phone Unavailable Care Team Providers Care Balancer Name Role Phone Zahira Diaz Unavailable Encounters Encounter Location Date Follow up Rheumatology Clinic January 07, 2016 pain - needs direction [facility] February 16, 2016 Lyrica refill [facility] Mar 12, 2016 pain all over body [facility] November 05, 2015 Follow up-Labs [facility] November 26, 2015 Right Wrist MRI [facility] December 15, 2015 Problems Problem Type Condition ICD-9 Code Onset Dates Condition Status Assessment Chronic pain G89.29 Active Problem Inflammatory arthritis M19.90 Active Medications Medication Code System Code Instructions Start Date End Date Status Dosage Lyrica MEDISPAN [address]-33 100 MG Orally Three times a day Active 1 capsule Social History Social History Element Qualifiers Date Reported Smoking status: . Are you a: Current Smoker January 07, 2016 alcohol no. January 07, 2016 Summary Purpose eClinicalWorks Submission
--- OUTSIDE RECORDS SUMMARY | 2019-04-06 05:38 | XMS REPORT ---
Author Author Zahira Diaz Organization [employer] Address Unknown Phone Unavailable Care Team Providers Care Supervisor Blueprinting And Photocopy Name Role Phone Zahira Diaz Unavailable Encounters Encounter Location Date Follow up Rheumatology Clinic January 07, 2016 pain - needs direction [facility] February 16, 2016 pain all over body [facility] November 05, 2015 Follow up-Labs [facility] November 26, 2015 Right Wrist MRI [facility] December 15, 2015 Problems Problem Type Condition ICD-9 Code Onset Dates Condition Status Problem Inflammatory arthritis M19.90 Active Social History Social History Element Qualifiers Date Reported Smoking status: . Are you a: Current Smoker January 07, 2016 alcohol no. January 07, 2016 Summary Purpose eClinicalWorks Submission
--- OUTSIDE RECORDS SUMMARY | 2019-04-06 05:38 | XMS REPORT ---
Author Author Zahira Diaz Organization [employer] Address Unknown Phone Unavailable Care Team Providers Care Mussel Opener Name Role Phone Zahira Diaz Unavailable Encounters Encounter Location Date Follow up Rheumatology Clinic January 07, 2016 pain - needs direction [facility] February 16, 2016 Lyrica refill [facility] Mar 12, 2016 lyrica rx [facility] Apr 05, 2016 pain all over body [facility] November 05, 2015 Follow up-Labs [facility] November 26, 2015 Right Wrist MRI [facility] December 15, 2015 Problems Problem Type Condition ICD-9 Code Onset Dates Condition Status Problem Inflammatory arthritis M19.90 Active Medications Medication Code System Code Instructions Start Date End Date Status Dosage Lyrica MEDISPAN [id number] 100 orally Twice a day Active TAKE 1 CAPSULE Social History Social History Element Qualifiers Date Reported Smoking status: . Are you a: Current Smoker January 07, 2016 alcohol no. January 07, 2016 Summary Purpose eClinicalWorks Submission
--- OUTSIDE RECORDS SUMMARY | 2019-04-06 05:38 | XMS REPORT ---
Author Author Zahira Diaz [facility] eClinicalWorks Address Unknown Phone Unavailable Care Team Providers Care Information Systems Security Specialist Name Role Phone Zahira Diaz CP Unavailable Allergies, Adverse Reactions, Alerts Substance Reaction Event Type N.K.D.A. Info Not Available Non Drug Allergy Encounters Encounter Location Date Follow up Rheumatology Clinic January 07, 2016 pain all over body [facility] November 05, 2015 Follow up-Labs [facility] November 26, 2015 Right Wrist MRI [facility] December 15, 2015 Problems Problem Type Condition ICD-9 Code Onset Dates Condition Status Assessment Inflammatory arthritis M19.90 Active Assessment Chronic pain G89.29 Active Problem Inflammatory arthritis M19.90 Active Assessment High risk medication use Z79.899 Active Assessment Counseling NOS Z71.9 Active Assessment Lumbago M54.5 Active Assessment Nasal congestion R09.81 Active Medications Medication Code System Code Instructions Start Date End Date Status Dosage Meloxicam MEDISPAN [address]-08 15 MG Orally Once a day Active 1 tablet Lyrica MEDISPAN [address]-47 100 MG Orally Twice a day Active 1 capsule [place] [facility] [address]-78 10-325 MG Orally every 6 hrs Active 1 tablet as needed Soma MEDISPAN [address]-22 350 MG Orally Four times a day Active 1 tablet as needed Gabapentin MEDISPAN [address]-72 600 MG Orally Three times a day Active 1 capsule [facility] [address]-25 100 MG Orally Twice a day November 05, 2015 Active 1 capsule [facility] [address]-45 40 MG Orally Once a day Active 1 capsule Hydroxychloroquine Sulfate [facility] [address]-59 200 MG Orally Once a day January 07, 2016 May 06, 2016 Active 2 tabs Social History Social History Element Qualifiers Date Reported Smoking status: . Are you a: Current Smoker January 07, 2016 alcohol no. January 07, 2016 Vital Signs Date/Time: January 07, 2016 Height 65 in Blood Pressure Diastolic 61 mm Hg Blood Pressure Systolic 99 mm Hg Weight 160.6 lbs Summary Purpose eClinicalWorks Submission
--- OUTSIDE RECORDS SUMMARY | 2019-04-06 05:38 | XMS REPORT ---
Author Author Zahira Diaz [facility] eClinicalWorks Address Unknown Phone Unavailable Care Team Providers Care Orange Picker Name Role Phone Zahira Diaz CP Unavailable [...] Wrist MRI [facility] December 15, 2015 Follow up 3 Month Rheumatology Clinic Apr 14, 2016 Problems Problem Type Condition ICD-9 Code Onset Dates Condition Status Assessment Rash R21 Active Assessment Inflammatory arthritis M19.90 Active Assessment Chronic pain G89.29 Active Problem Inflammatory arthritis M19.90 Active Assessment High risk medication use Z79.899 Active Assessment Counseling NOS Z71.9 Active Assessment Lumbago M54.5 Active Assessment Nasal congestion R09.81 Active Medications Medication Code System Code Instructions Start Date End Date Status Dosage Lyrica [facility] [address]-17 100 orally Three times a day Active TAKE 1 CAPSULE Meloxicam [facility] [address]-81 15 MG Orally Once a day Active 1 tablet Control Unknown 0 Oral Active 1 tab Soma [facility] [address]-34 350 MG Orally Four times a day Active 1 tablet as needed Gabapentin [facility] [address]-76 600 MG Orally Three times a day Inactive 1 capsule Lyrica [facility] [address]-02 100 MG Orally tid Active 1 capsule Omeprazole [facility] [address]-50 40 MG Orally Once a day Active 1 capsule Vitamin B-12 [facility] [address]68-[address]597 intramuscularly Once a week Active Unknown Triamcinolone Acetonide [facility] [address]-20 0.5 % Externally Twice a day to feet Apr 14, 2016 Active 1 application to affected area [place] [facility] [address]-01 10-325 MG Orally every 6 hrs Active 1 tablet as needed Hydroxychloroquine Sulfate MEDISPAN [address]-42 200 MG Orally Once a day Active 2 tabs Hydroxychloroquine Sulfate MEDISPAN [address]-06 200 MG Orally Once a day January 07, 2016 May 06, 2016 Active 2 tabs Social History Social History Element Qualifiers Date Reported Smoking status: . Are you a: Current Smoker Apr 14, 2016 alcohol no. Apr 14, 2016 Vital Signs Date/Time: Apr 14, 2016 Height 65 in Blood Pressure Diastolic 76 mm Hg Blood Pressure Systolic 124 mm Hg Weight 156.6 lbs Summary Purpose eClinicalWorks Submission
[2019-04-06] MEDS ORDERED: ONDANSETRON HCL INJ 2MG/ML 2ML 2 MG/ML VIAL ONE (05:44)
[2019-04-06] MEDS ORDERED: MORPHINE SULFATE INJ 4 MG/ML INJ 1ML ONE (05:44)
[2019-04-06] MEDS ORDERED: SODIUM CHLORIDE 0.9% 1000ML 1,000 ML ONE (05:45)
[2019-04-06 05:56] LABS: BASOPHILS # (AUTO) 0.1 (0.0-0.1); BASOPHILS % 1.1 % (0.0-1.0); EOSINOPHILS # (AUTO) 0.3 (0.0-0.4); EOSINOPHILS % 2.8 % (0.0-6.0); HEMATOCRIT 31.5 % (34.2-44.1); HEMOGLOBIN 10.3 g/dL (12.0-16.0); LYMPHOCYTES # (AUTO) 3.4 (1.0-3.2); LYMPHOCYTES % 30.5 % (18.0-39.1); MEAN CORPUSCULAR HEMOGLOBIN 30.4 pg (28-32); MEAN CORPUSCULAR HGB CONC 32.7 g/dL (31-35); MEAN CORPUSCULAR VOLUME 92.9 fL (81-99); MONOCYTES # (AUTO) 1.3 (0.2-0.8); MONOCYTES % 11.1 % (4.4-11.3); NEUTROPHILS # (AUTO) 6.1 (2.1-6.9); NEUTROPHILS % 54.1 % (38.7-80.0); PLATELET COUNT 424 x10e3/uL (140-360); RED BLOOD COUNT 3.39 x10e6/uL (3.6-5.1)
--- NOTE | 2019-04-06 06:06 | NUR ---
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
[2019-04-06 06:13] LABS: ALANINE AMINOTRANSFERASE 26 IU/L (0-55); ALBUMIN 3.7 g/dL (3.5-5.0); ALBUMIN/GLOBULIN RATIO 1.2 (0.8-2.0); ALKALINE PHOSPHATASE 66 IU/L (40-150); ANION GAP 17.4 mmol/L (8-16); BLOOD UREA NITROGEN 8 mg/dL (7-26); BUN/CREATININE RATIO 11 (6-25); CALCIUM 8.8 mg/dL (8.4-10.2); CARBON DIOXIDE 20 mmol/L (22-29); CHLORIDE 98 mmol/L (98-107); EST GLOMERULAR FILTRATION RATE > 60 ML/MIN (60-); GLUCOSE 105 mg/dL (74-118); POTASSIUM 4.4 mmol/L (3.5-5.1); SODIUM 131 mmol/L (136-145)
[2019-04-06] MEDS ORDERED: SODIUM CHLORIDE 0.9% 1000ML 1,000 ML IV SCH (06:29)
[2019-04-06] MEDS ORDERED: ONDANSETRON HCL INJ 2MG/ML 2ML 2 MG/ML VIAL IV PRN (06:30)
[2019-04-06] MEDS ORDERED: HYDROMORPHONE 1MG/1ML INJ IV PRN (06:30)
[2019-04-06] MEDS ORDERED: HYDROMORPHONE 1MG/1ML INJ IV NR (06:30)
[2019-04-06] MEDS ORDERED: MORPHINE SULFATE INJ 4 MG/ML INJ 1ML IV PRN (06:45)
--- OUTSIDE RECORDS SUMMARY | 2019-04-06 06:53 | XMS REPORT | Continuity of Care Document ---
Author Author Harper Love [facility] [employer] Experience Information L[employer] Wolly Doodle Address Unknown Phone Unavailable Care Team Providers Care Lath Tier Name Role Phone [facility] [employer] Unavailable Unavailable Problems Problem Status [...] Orally Once a day Narome Zahira Diaz [place] 1 tablet as needed Orally Active 5-325 MG Orally every 6 hrs Najam Zahira Najam [place] 1 tablet as needed Orally Active 10-325 [...] Active 200 MG Orally Once a day [facility] Allergies, Adverse Reactions, Alerts Substance [...] Source Rheumatology Clinic pain all over body [id number] 11/05/2015 11/05/2015 Zahiraruben Joy [facility] pain all over body [id number] 11/05/2015 11/05/2015 [facility] pain all over body [id number] 11/05/2015 11/05/2015 [facility]ira [facility] Clinic pain all over body [id number] 11/05/2015 11/05/2015 [facility] pain all over body [id number] 11/05/2015 11/05/2015 Zahira [facility] Clinic pain all over body [id number] 11/05/2015 11/05/2015 Zahira [facility] Clinic pain all over body [id number] 11/05/2015 11/05/2015 Zahira [facility] Clinic pain all over body [id number] 11/05/2015 11/05/2015 Zahiraruben Joy [facility] Follow up- Labs [id number] 11/26/2015 11/26/2015 [facility] Rhe[facility]ology Clinic Follow up- Labs [id number] 11/26/2015 11/26/2015 [facility] Follow up- Labs [id number] 11/26/2015 11/26/2015 [facility] Clinic Follow up- Labs [id number] 11/26/2015 11/26/2015 [facility] Follow up- Labs [id number] 11/26/2015 11/26/2015 [facility] Follow up- Labs [id number] 11/26/2015 11/26/2015 [facility] Follow up- Labs [id number] 11/26/2015 11/26/2015 [facility]ology Clinic Right Wrist MRI [id number] 12/15/2015 12/15/2015 [facility] Clinic Right Wrist MRI [id number] 12/15/2015 12/15/2015 [facility] Right Wrist MRI [id number] 12/15/2015 12/15/2015 [facility] Right Wrist MRI [id number] 12/15/2015 12/15/2015 [facility] Right Wrist MRI [id number] 12/15/2015 12/15/2015 [facility] Right Wrist MRI [id number] 12/15/2015 12/15/2015 [facility]ology Clinic Follow up [id number] 01/07/2016 01/07/2016 [facility] Follow up [id number] 01/07/2016 01/07/2016 [facility] Follow up [id number] 01/07/2016 01/07/2016 [facility] Follow up [id number] 01/07/2016 01/07/2016 [facility] Follow up [id number] 01/07/2016 01/07/2016 [facility] Rheumatology Clinic pain - needs direction [id number] 02/16/2016 02/16/2016 [facility] Rheumatology Clinic pain - needs direction [id number] 02/16/2016 02/16/2016 [facility] Rheumatology [facility] pain - needs direction [id number] 02/16/2016 02/16/2016 [facility]ology Clinic pain - needs direction [id number] 02/16/2016 02/16/2016 [facility] Lyrica refill [id number] 03/12/2016 03/12/2016 [facility] Rheumatology [facility] Lyrica refill [id number] 03/12/2016 03/12/2016 [facility] Lyrica refill [id number] 03/12/2016 03/12/2016 [facility] Clinic lyrica rx [id number] 04/05/2016 04/05/2016 [facility]ology Clinic lyrica rx [id number] 04/05/2016 04/05/2016 [facility] Follow up 3 Month [id number] 04/14/2016 04/14/2016 Zahira Diaz Procedures No Data [...]
--- OUTSIDE RECORDS SUMMARY | 2019-04-06 06:53 | XMS REPORT | Clinical Summary ---
Author Author [facility] Organization [facility] Address Unknown Phone Unavailable Care Team Providers Care Pitching Coach Name Role Phone Asked, No Pcp PCP [...] Comments Vital Sign 127/63 07/24/2018 5:18 PM FREELANCE PHOTOGRAPHER Blood Pressure 98 07/24/2018 5:18 PM FREELANCE PHOTOGRAPHER Pulse 36.6 C (97.9 F) 07/24/2018 5:18 PM FREELANCE PHOTOGRAPHER Temperature 17 07/24/2018 5:18 PM FREELANCE PHOTOGRAPHER Respiratory Rate 97% 07/24/2018 5:18 PM FREELANCE PHOTOGRAPHER Oxygen Saturation - - Inhaled Oxygen Concentration 74.5 kg (164 lb 3.9 oz) 07/23/2018 8:51 PM FREELANCE PHOTOGRAPHER Weight 165.1 cm (5' 5") 07/23/2018 8:51 PM FREELANCE PHOTOGRAPHER Height 27.33 07/23/2018 8:51 PM FREELANCE PHOTOGRAPHER Body Mass Index Plan of Treatment Health Maintenance Due Date Last Done Comments CERVICAL CANCER SCREENING 1991 INFLUENZA VACCINE 03/08/2019 Procedures Comments Procedure Name Priority Date/Time Associated Diagnosis CV STRESS TEST NUCLEAR Routine 07/24/2018 CARDIO 4:40 PM FREELANCE PHOTOGRAPHER TROPONIN Timed 07/24/2018 3:06 PM FREELANCE PHOTOGRAPHER ECHOCARDIOGRAM 2D Routine 07/24/2018 COMPLETE W MMODE SPECTRAL 1:40 PM FREELANCE PHOTOGRAPHER COLOR DOPPLER ([id number]) TROPONIN Timed 07/24/2018 9:05 AM FREELANCE PHOTOGRAPHER TROPONIN Timed 07/24/2018 4:31 AM FREELANCE PHOTOGRAPHER ESTIMATED GFR Timed 07/24/2018 4:31 AM FREELANCE PHOTOGRAPHER HEMOGLOBIN A1C Timed 07/24/2018 4:31 AM FREELANCE PHOTOGRAPHER LIPID PANEL Timed 07/24/2018 4:31 AM FREELANCE PHOTOGRAPHER HC COMPLETE BLD COUNT Timed 07/24/2018 W/AUTO DIFF 4:31 AM FREELANCE PHOTOGRAPHER BASIC METABOLIC PANEL Timed 07/24/2018 4:[address] ABDOMEN PELVIS WO STAT 07/24/2018 CONTRAST 2:15 AM FREELANCE PHOTOGRAPHER LACTIC ACID LEVEL, SEPSIS Timed 07/23/2018 - NOW AND REPEAT 2X EVERY 11:55 PM FREELANCE PHOTOGRAPHER 3 HOURS TROPONIN Timed 07/23/2018 11:55 PM FREELANCE PHOTOGRAPHER LACTIC ACID LEVEL, SEPSIS Timed 07/23/2018 - NOW AND REPEAT 2X EVERY 8:10 PM FREELANCE PHOTOGRAPHER 3 HOURS TROPONIN Timed 07/23/2018 8:10 PM FREELANCE PHOTOGRAPHER ECG 12-LEAD STAT 07/23/2018 7:44 PM FREELANCE PHOTOGRAPHER XR CHEST 2 VW STAT 07/23/2018 5:04 PM FREELANCE PHOTOGRAPHER LACTIC ACID LEVEL, SEPSIS STAT 07/23/2018 - NOW AND REPEAT 2X EVERY 3:50 PM FREELANCE PHOTOGRAPHER 3 HOURS PARTIAL THROMBOPLASTIN STAT 07/23/2018 TIME (PTT) 3:50 PM FREELANCE PHOTOGRAPHER PROTHROMBIN TIME WITH INR STAT 07/23/2018 3:50 PM FREELANCE PHOTOGRAPHER ESTIMATED GFR STAT 07/23/2018 3:50 PM FREELANCE PHOTOGRAPHER B NATRIURETIC PEPTIDE STAT 07/23/2018 3:50 PM FREELANCE PHOTOGRAPHER TROPONIN STAT 07/23/2018 3:50 PM FREELANCE PHOTOGRAPHER COMPREHENSIVE METABOLIC STAT 07/23/2018 PANEL 3:50 PM FREELANCE PHOTOGRAPHER HC COMPLETE BLD COUNT STAT 07/23/2018 W/AUTO DIFF 3:50 PM FREELANCE PHOTOGRAPHER HCG QUALITATIVE, URINE Routine 07/23/2018 SCREEN 3:40 PM FREELANCE PHOTOGRAPHER URINE DRUGS OF ABUSE Routine 07/23/2018 SCREEN 3:40 PM FREELANCE PHOTOGRAPHER URINALYSIS SCREEN AND STAT 07/23/2018 MICROSCOPY, WITH REFLEX 3:40 PM FREELANCE PHOTOGRAPHER TO CULTURE INFLUENZA ANTIGEN Routine 07/23/2018 3:40 PM FREELANCE PHOTOGRAPHER RESPIRATORY PATHOGEN Routine 07/23/2018 PANEL 3:40 PM FREELANCE PHOTOGRAPHER ECG 12-LEAD STAT 07/23/2018 3:23 PM FREELANCE PHOTOGRAPHER after 04/05/2018 Results * Cv stress test (07/24/2018 4:40 PM FREELANCE PHOTOGRAPHER) Resting HR 102 [facility] MUSE Resting BP [...] At Performing Organization Address City/State/Zipcode Phone Number [facility] MUSE [address] [place] [address] * Troponin (07/24/2018 3:06 PM FREELANCE PHOTOGRAPHER) Only the most recent of 6 results within the time period is included. Troponin <0.30 0.00 - 0.30 ng/mL [facility] Comment: JAIN AMBRIZ 0.11 - 1.49 [facility] indicate increased risk of acute coronary syndrome. >=1.5 ng/ml Consistent with acute myocardial infarction. The diagnostic value of a single normal or non-diagnostic result is questionable.Serial samples at 2-6 hour intervals are required to rule out acute myocardial injury. Specimen Plasma specimen Performing Organization Address City/State/Zipcode Phone Number [facility] [place] [place] [address] [place] [address] PATHOLOGY AND GENOMIC MEDICINE [facility] [address] [place] [address] [facility] * Echocardiogram complete w contrast and 3D if needed (07/24/2018 1:40 PM FREELANCE PHOTOGRAPHER) Velocity Ratio 0.94 m/s [facility] (V1/V2) [...] Stage II diastolic dysfunction. Performing Organization Address City/[facility]/Zipcode Phone Number [facility] [address] [place] [address] * Estimated GFR (07/24/2018 4:31 AM FREELANCE PHOTOGRAPHER) Only the most recent of 2 results within the time period is included. Estimated GFR >=90 mL/min/1.73 m2 [facility] Comment: [facility]Y [facility] G1 >=90 Normal or high G2 60-89Mildly decreased [id number] Mildly to moderately decreased [id number] Moderately to severely decreased G4 15-29Severely decreased G5 <15Kidney failure The eGFR was calculated using the Chronic Kidney Disease Epidemiology Collaboration (CKD-EPI) equation. Interpretation is based on recommendations of the National Kidney Foundation-Kidney Disease Outcomes Quality Initiative (NKF-KDOQI) published in 2014. Specimen Plasma specimen Performing Organization Address City/State/Zipcode Phone Number [facility] DEPARTMENT OF [address] [place] [address] PATHOLOGY AND GENOMIC MEDICINE [facility] [address] [place], [place] [id number] [place] [address] * CBC with platelet and differential (07/24/2018 4:31 AM FREELANCE PHOTOGRAPHER) Only the most recent of 2 results within the time period is included. WBC 3.9 (L) 4.2 - 11.0 k/uL [facility] RBC 3.39 (L) 4.04 - 5.86 m/uL [facility] HGB 10.7 (L) 11.5 - 15.3 g/dL [facility] HCT 33.9 (L) 34.0 - 45.0 % [facility] MCV 100.0 (H) 80.0 - 98.0 fL [facility] MCH 31.6 27.0 - 34.0 pg [facility] MCHC 31.6 31.5 - 36.5 g/dL [facility] RDW - SD 60.8 (H) 37.0 - 51.0 fL [facility] MPV 9.2 7.4 - 10.4 fL [facility] Platelet count 235 150 - 400 k/uL [facility] Nucleated RBC 0.00 /100 WBC [facility] Neutrophils 81.2 (H) 36.0 - 66.0 % [facility] Lymphocytes 11.2 (L) 24.0 - 44.0 % [facility] Monocytes 6.5 (H) 0.0 - 6.0 % [facility] Eosinophils 0.0 0.0 - 6.0 % [facility] Basophils 0.3 0.0 - 1.2 % [facility] Immature 0.8 0.0 - 1.0 % [facility] granulocytes [facility] Specimen Blood Performing Organization Address City/[facility]/Zipcode Phone Number [facility] [place] [address] [id number] PATHOLOGY AND GENOMIC MEDICINE [address] * Hemoglobin A1c (07/24/2018 4:31 AM FREELANCE PHOTOGRAPHER) [facility] Hemoglobin A1C 4.8 4.0 - 6.0 % [facility] Comment: NAOMY [facility]RIZ [facility] Less than 6% - Goal of therapy for Type II Diabetes Less than 7%-Goal of therapy for Type I Diabetes Less than 8%-Accepta ble control for Type I or Type II Diabetes Greater than 8%-Unacceptabl e control; action indicated. ([id number]) Specimen Blood Performing Organization Address City/[facility]/Zipcode Phone Number [place] [phone] [place] [phone] PATHOLOGY AND [facility] MEDICINE [address] * Lipid panel (07/24/2018 4:31 AM FREELANCE PHOTOGRAPHER) [facility] Cholesterol 229 (H) 0 - 199 mg/dL [facility] Triglycerides 56 0 - 149 mg/dL [facility] HDL cholesterol 137 40 - 9,999 mg/dL [facility] LDL cholesterol 101 (H)Comment: Result 0 - 99 mg/dL [facility] obtained by direct LDL [facility] Lipid panel See below [facility] interpretation Comment: [facility] Total Cholesterol [facility] (mg/dL) [facility] LDL Cholesterol (mg/dL) <200 Desirable <100 Optimal 200-239Borderline -[id number] 29Near or above optimal >=240High 130-159Borderline- high [...] mg/dL) Specimen Plasma specimen Performing Organization Address City/[facility] Centercode Phone Number [facility] [place] [address] PATHOLOGY AND GENOMIC MEDICINE [facility] [address] * Basic metabolic panel (07/24/2018 4:31 AM FREELANCE PHOTOGRAPHER) Sodium 138 135 - 150 mEq/L [facility] Potassium 4.2 3.5 - 5.0 mEq/L [facility] Chloride 104 98 - 112 mEq/L [facility] CO2 23 (L) 24 - 31 mmol/L [facility] Anion gap 11@ANIO 7 - 15 mEq/L [facility] BUN 10 7 - 18 mg/dL [facility] Creatinine 0.60 0.50 - 0.90 mg/dL [facility] Glucose 151 (H) 65 - 100 mg/dL [facility] Calcium 9.4 8.3 - 10.2 mg/dL [facility] Specimen Plasma specimen Performing Organization Address City/[facility]/Zipcode Phone Number [place] [phone] [place] [address] PATHOLOGY AND GENOMIC MEDICINE [facility] [address] * CT Abdomen Pelvis Wo Contrast (07/24/2018 2:15 AM FREELANCE PHOTOGRAPHER) Specimen Narrative Performed At Examination:CT ABDOMEN PELVIS [...] abnormality identified in the abdomen or pelvis. [facility]-[id number] Procedure Note Interface, Radiology Results Incoming - 07/24/2018 2:53 AM FREELANCE PHOTOGRAPHER Examination: CT ABDOMEN PELVIS WO CONTRAST Clinical [...] abnormality identified in the abdomen or pelvis. [facility]-[id number] Performing Organization Address City/State/Zipcode Phone Number [facility] [address] [place] [address] * Lactic acid level, SEPSIS - Now and repeat 2x every 3 hours (07/23/2018 11:55 PM FREELANCE PHOTOGRAPHER) Only the most recent of 3 results within the time period is included. Lactic acid 2.1 0.5 - 2.2 mmol/L [facility] Specimen Blood Performing Organization Address City/[facility] Centercode Phone Number [facility] OF [address] [place] [address] PATHOLOGY AND GENOMIC MEDICINE [facility] [address] * ECG 12 lead (07/23/2018 7:44 PM FREELANCE PHOTOGRAPHER) Only the most recent of 2 results within the time period is included. Ventricular 94 [facility] rate Atrial rate 94 [facility] OK interval 116 [facility] QRSD interval 90 [facility] QT interval 368 [facility] QTC interval 460 [facility] P axis 1 48 [facility] QRS axis 1 52 [facility] T wave axis 65 [facility] EKG impression Normal sinus rhythm-Normal [facility] MUSE ECG-In automated comparison with ECG of 23-JUL-2018 15:23,-No significant change was found- Specimen Narrative Performed At Performing Organization Address [facility] Centercode Phone Number [facility] MUSE [address] [place] [address] * XR Chest 2 Vw (07/23/2018 5:04 PM FREELANCE PHOTOGRAPHER) Specimen Narrative Performed At EXAMINATION:XR CHEST 2 VW RADIANT CLINICAL HISTORY:Shortness of breath COMPARISON:November 06, 2017 IMPRESSION: 1.Lungs are clear and the heart size is normal. 2.The vessels are not congested. There are no pleural effusions. 3.There are postoperative changes in the lower cervical spine and upper abdomen. [facility]-[id number] Procedure Note Hm Interface, Radiology Results Incoming - 07/23/2018 5:16 PM FREELANCE PHOTOGRAPHER EXAMINATION: XR CHEST 2 VW CLINICAL HISTORY: Shortness of breath COMPARISON: November 06, 2017 IMPRESSION: 1. Lungs are clear and the heart size is normal. 2. The vessels are not congested. There are no pleural effusions. 3. There are postoperative changes in the lower cervical spine and upper abdomen. [id number] Performing Organization Address City/State/Zipcode Phone Number [facility] [address] [place] [address] * Partial thromboplastin time, activated (07/23/2018 3:50 PM FREELANCE PHOTOGRAPHER) PTT 29.8 23.0 - 36.0 sec [facility] Comment: NAOMY AMBRIZ PTT therapeutic range for JILLIAN unfractionated heparin is HOSPITAL 61.0-112.0 seconds which corresponds to Anti-Xa 0.3-0.7 U/ml. Note:Change in Panic Value The PTT Panic Value is changing from 110 sec. to 100 sec. due to new instrumentation and reagents. Correlation studies have been performed to validate this result. Specimen Blood Performing Organization Address [facility] Centercone Phone Number [facility] [place] [address] [place] [address] * Prothrombin time with INR (07/23/2018 3:50 PM FREELANCE PHOTOGRAPHER) Pathologist [facility] Prothrombin 11.7 11.5 - 14.5 sec [facility] time [facility] INR 0.88 [facility] Comment: NAOMY AMBRIZ For patients on anticoagulant JILLIAN therapy, reference ranges HOSPITAL below: Indication: INR Value Treatment of Venous Thrombosis, 2.0-3.0 pulmonary emboli, or prophylaxis of a venous thrombosis, or systemic emboli. High dose, high risk patients 3.0-4.5 with mechanical valves. NOTE:INR values over 3.0 are sometimes associated with gastrointestinal hemorrhage, especially values over 4.0. Specimen Blood Performing Organization Address [facility]/Zipcode Phone Number [facility] [place] [address] [place] [address] [address] * B natriuretic peptide (07/23/2018 3:50 PM FREELANCE PHOTOGRAPHER) BNP 59 0 - 100 pg/mL [facility] Specimen Blood Performing Organization Address City/[facility]/Zipcode Phone Number [facility] [place] [address] [place] [address] [place] [address] PATHOLOGY AND GENOMIC MEDICINE [place] [address] * Comprehensive metabolic panel (07/23/2018 3:50 PM FREELANCE PHOTOGRAPHER) [facility] Sodium 138 135 - 150 mEq/L [facility] Potassium 4.1 3.5 - 5.0 mEq/L [facility] Chloride 104 98 - 112 mEq/L [facility] CO2 20 (L) 24 - 31 mmol/L [facility] Anion gap 14@ANIO 7 - 15 mEq/L [facility] BUN 7 7 - 18 mg/dL [facility] Creatinine 0.60 0.50 - 0.90 mg/dL [facility] Glucose 81 65 - 100 mg/dL [facility] Calcium 9.0 8.3 - 10.2 mg/dL [facility] Protein 6.9 6.3 - 8.3 g/dL [facility] Albumin 3.4 (L) 3.5 - 5.0 g/dL [facility] A/G ratio 1.0 0.7 - 3.8 [facility] Alkaline 85 0 - 104 U/L [facility] phosphatase [facility] AST 63 (H) 10 - 35 U/L [facility] ALT 50 5 - 50 U/L [facility] Total bilirubin 0.4 0.2 - 1.2 mg/dL [facility] Specimen Plasma specimen Performing Organization Address City/State/Zipcode Phone Number [facility] [place] [address] PATHOLOGY AND GENOMIC MEDICINE [facility] [address] * Respiratory pathogen panel (07/23/2018 3:40 PM FREELANCE PHOTOGRAPHER) [facility] Respiratory Negative for all pathogens [facility] pathogen panel tested: JAIN Negative for Adenovirus [facility] Negative for Coronavirus HKU1 Negative for Coronavirus [...] Right Performing Organization Address City/State/Zipcode Phone Number [facility] DEPARTMENT OF [address] [place] [address] PATHOLOGY AND GENOMIC MEDICINE [address] * Urinalysis screen and microscopy, with reflex to culture (07/23/2018 3:40 PM FREELANCE PHOTOGRAPHER) Specimen site Clean catch [facility] Color, UA Colorless [facility] Appearance, UA Clear [facility] Specific 1.002 1.001 - 1.035 [facility] gravity, [facility] pH, UA 6.0 5.0 - 8.5 [facility] Protein, UA Negative Negative [facility] Glucose, UA Negative Negative [facility] Ketones, UA Negative Negative [facility] Bilirubin, UA Negative Negative [facility] Blood, UA Small (A) Negative [facility] Nitrite, UA Negative Negative [facility] Urobilinogen, Negative <2.0 [facility] Leukocyte Negative Negative [facility] esterase, UA [facility] Epithelial Few /HPF [facility] cells, UA [facility] WBC, UA <1 0 - 5 /HPF [facility] RBC, UA 2 0 - 5 /HPF [facility] Bacteria, UA Trace None seen [facility] Yeast, UA None seen [facility] Yeast with None seen [facility] pseudohyphae, [facility] Specimen Urine Performing Organization Address City/[facility] Centercode Phone Number [facility] [place] [place] [address] [phone] PATHOLOGY AND GENOMIC MEDICINE [facility] [address] * hCG qualitative, urine screen (07/23/2018 3:40 PM FREELANCE PHOTOGRAPHER) hCG Negative Negative [facility] qualitative, Comment: NAOMY AMBRIZ urine The manufacturers stated [facility] sensitivity of HcG test for HOSPITAL serum is >/=10 mIU/ml and urine is >/=20mIU/ml. Specimen Urine Performing Organization Address [facility] Phone Number [facility] OF [address] [place] [address] PATHOLOGY AND GENOMIC MEDICINE [facility] [address] * Urine drugs of abuse screen (07/23/2018 3:40 PM FREELANCE PHOTOGRAPHER) Pathologist [facility] Amphetamine Negative [facility] screen, urine [facility] Barbiturate Negative [facility] screen, urine [facility] Benzodiazepine Negative [facility] screen, urine [facility] Cannabinoid Positive (A) [facility] screen, urine [facility] Cocaine screen, Negative [facility] urine [facility] Methadone Negative [facility] metabolite [facility] (EDDP), urine [facility] Opiates screen, Positive (A) [facility] urine [facility] Phencyclidine Negative [facility] screen, urine [facility] Specimen Urine Performing Organization Address [facility] Phone Number [facility] OF [address] [place] [address] PATHOLOGY AND GENOMIC MEDICINE [facility] [address] * Influenza antigen (07/23/2018 3:40 PM FREELANCE PHOTOGRAPHER) Influenza Negative for Influenza A/B [facility] antigen antigen. JAIN [facility] Comment: JILLIAN Specimen Information HOSPITAL Specimen Source: Nares Specimen Site: Right Specimen Nares - Right Performing Organization Address City/[facility] Phone Number [facility] OF [address] [place] [address] PATHOLOGY AND GENOMIC MEDICINE [facility] [address] [place] [address] [facility] after 04/05/2018 Insurance Type Payer Benefit Subscriber ID Effective Phone Address Plan / Dates Group HMO [employer] AMER[employer] xxxxxxxxx 2018- -AMERIVANT Present AGE MCR O O [facility] MEDICAID [facility] xxxxxxxxx 2017-P COMM STAR+ resent KYM Advance Directives For more information, please contact: [phone] Patient Executive Communications Manager Explanation Type Date Recorded Advance Directives, 01/24/2017 10:58 PM Living Will and Medical Power of Platform Material Handler Manager Advance Directives, 10/20/2015 11:17 AM Living Will and Medical Power of Platform Material Handler Manager Advance Directives, 06/30/2017 12:52 PM Living Will and Medical Power of Platform Material Handler Manager Advance Directives, 07/23/2018 9:30 PM Living Will and Medical Power of Platform Material Handler Manager Date Inactivated Comments Code Status Date Activated 02/05/2017 8:01 PM Full Code 02/05/2017 2:31 AM Code Status decision reached by: Patient
[2019-04-06] MEDS ORDERED: SODIUM CHLORIDE 0.9% 50ML 50 ML ONE (06:55)
[2019-04-06] MEDS ORDERED: IOPAMIDOL 370 MG/ML 200 ML INFUS..BTL INJ ONE (06:55)
--- NOTE | 2019-04-06 06:56 | NUR ---
REPORT TO [facility]ENUS JOHNSON
--- NOTE | 2019-04-06 07:05 | Diagnostic Imaging Report ---
Exam: Right femur, 2 views History: Status post fall Comparison: None. Findings: No acute, displaced fracture or dislocation of the femur. There is irregularity of the medial aspect of the right superior Pubic ramus, suboptimally visualized. Soft tissues are unremarkable. Impression: The right femur is intact. Questionable cortical deformity of the right superior pubic ramus may be further evaluated by pelvic and right hip radiographs. Signed by: Dr. Jacinto Kumari M.D. on 04/06/2019 7:01 AM
--- NOTE | 2019-04-06 07:06 | Diagnostic Imaging Report ---
Examination: Single AP view of the chest. COMPARISON: 08/21/2017 INDICATION: Shortness of breath DISCUSSION: The lungs are well-inflated and without focal airspace consolidation, pleural effusion, or pneumothorax. Cardiomediastinal contour and pulmonary vasculature are within normal limits for portable, AP technique. Spine fusion hardware partially visualized. No acute osseous abnormality. IMPRESSION: No acute cardiopulmonary abnormality. Signed by: Dr. Jacinto Kumari M.D. on 04/06/2019 7:03 AM
[2019-04-06] MEDS ORDERED: ALBUTEROL/IPRATROPIUM 3 ML NEB NEB ONE (07:45)
--- NOTE | 2019-04-06 08:50 | NUR ---
pt attempted to leave ama stating she had an emergency with her son and she needed a cigarette; pt stopped and talked into returning to her room; Dr Joynre contacted and states it is ok by him if pt leaves ama and is aware of all that is going on with pt; pt informed of this and pt signed out ama stating she understands dangers of leaving ama up to and including if not properly cared for and benefits of staying; pt states she doesnt care and just wants to leave [facility] [place] witnesses pt ama
--- NOTE | 2019-04-06 08:55 | NUR ---
pt d/c her iv line herself
--- NOTE | 2019-04-06 09:09 | Diagnostic Imaging Report ---
CT right lower extremity, 04/06/2019. History: Right leg hematoma. Comparison: X-ray from earlier today. Technique: Multidetector imaging of the pelvis was performed from the level of the iliac crests to the proximal femurs after IV administration contrast. Coronal and sagittal reconstructions were performed. RADIATION DOSE: Total DLP: 845 mGy*cm Dose modulation, iterative reconstruction, and/or weight based adjustment of the mA/kV was utilized to reduce the radiation dose to as low as reasonably achievable. Discussion: A 9.8 x 5.0 x 11.1 cm subcutaneous hematoma is seen in the anterolateral thigh compressing the adjacent musculature with surrounding subcutaneous edema. A 6 x 17 mm focus of hyperdensity is present within the medial aspect of the hematoma suggestive of contrast extravasation. The bones are intact. There is no evidence of fracture or dislocation. There is no evidence of lytic or sclerotic lesion. IMPRESSION: 1. Large right anterolateral thigh subcutaneous hematoma with small focus of active extravasation noted medially. Findings were discussed with ER physician at 9:00 AM on 04/06/2019. 2. No evidence of fracture or dislocation. Signed by: Morteza Crocker on 04/06/2019 9:05 AM
--- NOTE | 2019-04-06 10:41 | NUR ---
pt returned to er placed back in room 1 bilateral iv access established and blood drawn per orders vs taken and recorded
[2019-04-06 11:00] LABS: BASOPHILS # (AUTO) 0.1 (0.0-0.1); BASOPHILS % 0.6 % (0.0-1.0); EOSINOPHILS # (AUTO) 0.2 (0.0-0.4); EOSINOPHILS % 1.2 % (0.0-6.0); HEMATOCRIT 29.1 % (34.2-44.1); LYMPHOCYTES # (AUTO) 2.5 (1.0-3.2); MEAN CORPUSCULAR HEMOGLOBIN 29.5 pg (28-32); MEAN CORPUSCULAR HGB CONC 30.9 g/dL (31-35); MEAN CORPUSCULAR VOLUME 95.4 fL (81-99); MONOCYTES # (AUTO) 1.5 (0.2-0.8); NEUTROPHILS # (AUTO) 8.3 (2.1-6.9); NEUTROPHILS % 65.8 % (38.7-80.0); PLATELET COUNT 395 x10e3/uL (140-360); RED BLOOD COUNT 3.05 x10e6/uL (3.6-5.1); RED CELL DISTRIBUTION WIDTH 17.2 % (11.7-14.4)
[2019-04-06 11:03] LABS: INR 0.92; PARTIAL THROMBOPLASTIN TIME 28.1 seconds (23.8-35.5); PROTHROMBIN TIME 12.8 seconds (11.9-14.5)
--- NOTE | 2019-04-06 11:17 | NUR ---
pt moved from er bed 1 to room 295 report given to VENUS Mcgregor vss
[2019-04-06 11:45] VITALS: BP 133/76
--- NOTE | 2019-04-06 11:45 | NUR ---
Pt was admitted to floor fro ER. Pt is aox4 and able to verbalize needs. Complain of severe pain to right hip and has large hematoma is noted. Speech is a little slurred.
[2019-04-06 12:00] VITALS: BP 133/76
--- NOTE | 2019-04-06 13:42 | NUR ---
Pt says she is leaving hospital right now because her son got in a car accident. Pt signed AMA paper work.
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
[2019-04-09] MEDS ORDERED: NICODERM CQ1 EAC2 TOP (07:10)
[2019-04-09] MEDS ORDERED: FERROUS SULFAT325 MG PO (07:10)
[2019-04-09] MEDS ORDERED: MULTIVITAMINS1 EAC6 PO (07:10)
[2019-04-09] MEDS ORDERED: ULTRAM 50MG50 MG PO (07:10)
--- NOTE | 2019-04-10 04:54 | Discharge Summary ---
Once again, I never established relationship with the patient as a doctor-patient relationship. This patient left AMA twice, once from the emergency room. She came back to the emergency room about an hour or so later and then once within an hour, so being on the floor, she left AMA again. So, therefore I had never established relationship to be able to dictate a full H and P or discharge summary because she was never admitted to my service ever since of a patient-doctor relationship. You can see hospital chart for full details. Therefore, I am not charging anything toward the patient, as I never established a relationship so any responsibilities follow on her as far as her leaving AMA twice. Please see hospital chart for full details. MD ROBERT Alfaro/MAGDALENA /[id number]
--- NOTE | 2019-04-10 05:05 | History and Physical ---
This is really not an H and P because the patient left AMA twice before I had a chance to see the patient, in spite never established a relationship with the patient nor was able to perform physical exam. So, therefore, I had never established any patient-doctor relationship because she left AMA from the emergency room, came back to the emergency room an hour or so later and then went to the floor and then about an hour or so later she left AMA again well before I had a chance to see the patient. So, she left AMA twice within 4 hours. So, I never established relationship, but I went ahead and dictated a note. MD ROBERT Alfaro/MAGDALENA /[id number] MTDD
== END 2019-04-06 13:48 | disposition left against medical advice (07) | DRG 605 ==
LOC: ER 05:34 → ERHOLD 06:37 → MED/SURG3 11:12
PROVIDERS: ADMIT Internal Medicine; ATTEND Internal Medicine
DX: S70.11XA Contusion of right thigh, initial encounter (principal); F10.229 Alcohol dependence with intoxication, unspecified; K70.9 Alcoholic liver disease, unspecified
CPT/HCPCS: 36415; 71045; 80053; 80320; 85025; 85610; 85730; 86850; 86900; 93005; 94640; 96374; 99284; J1170; J2270; J2405; J7030; Q9967

== ENCOUNTER 2019-04-07 09:27 | Observation (INO) | payer MEDICARE, OTHER ==
[~2019-04-07] VITALS: Ht 165.1 cm; Wt 81.2 kg
--- OUTSIDE RECORDS SUMMARY | 2019-04-07 09:30 | XMS REPORT | Clinical Summary ---
Author Author [employer] Organization [employer] Address Unknown Phone Unavailable Care Team Providers Care Billet Heater Name Role Phone Asked, No Pcp PCP [...] unspecified type 06/17/2018 Refill Family Medicine after 04/06/2018 Social History Date Tobacco Use Types Packs/Day [...] Comments Vital Sign 127/63 07/24/2018 5:18 PM BANDER AND CELLOPHANER MACHINE HELPER Blood Pressure 98 07/24/2018 5:18 PM BANDER AND CELLOPHANER MACHINE HELPER Pulse 36.6 C (97.9 F) 07/24/2018 5:18 PM BANDER AND CELLOPHANER MACHINE HELPER Temperature 17 07/24/2018 5:18 PM BANDER AND CELLOPHANER MACHINE HELPER Respiratory Rate 97% 07/24/2018 5:18 PM BANDER AND CELLOPHANER MACHINE HELPER Oxygen Saturation - - Inhaled Oxygen Concentration 74.5 kg (164 lb 3.9 oz) 07/23/2018 8:51 PM BANDER AND CELLOPHANER MACHINE HELPER Weight 165.1 cm (5' 5") 07/23/2018 8:51 PM BANDER AND CELLOPHANER MACHINE HELPER Height 27.33 07/23/2018 8:51 PM BANDER AND CELLOPHANER MACHINE HELPER Body Mass Index Plan of Treatment Health Maintenance Due Date Last Done Comments CERVICAL CANCER SCREENING 1991 INFLUENZA VACCINE 03/08/2019 Procedures Comments Procedure Name Priority Date/Time Associated Diagnosis CV STRESS TEST NUCLEAR Routine 07/24/2018 CARDIO 4:40 PM BANDER AND CELLOPHANER MACHINE HELPER TROPONIN Timed 07/24/2018 3:06 PM BANDER AND CELLOPHANER MACHINE HELPER ECHOCARDIOGRAM 2D Routine 07/24/2018 COMPLETE W MMODE SPECTRAL 1:40 PM BANDER AND CELLOPHANER MACHINE HELPER COLOR DOPPLER ([id number]) TROPONIN Timed 07/24/2018 9:05 AM BANDER AND CELLOPHANER MACHINE HELPER TROPONIN Timed 07/24/2018 4:31 AM BANDER AND CELLOPHANER MACHINE HELPER ESTIMATED GFR Timed 07/24/2018 4:31 AM BANDER AND CELLOPHANER MACHINE HELPER HEMOGLOBIN A1C Timed 07/24/2018 4:31 AM BANDER AND CELLOPHANER MACHINE HELPER LIPID PANEL Timed 07/24/2018 4:31 AM BANDER AND CELLOPHANER MACHINE HELPER HC COMPLETE BLD COUNT Timed 07/24/2018 W/AUTO DIFF 4:31 AM BANDER AND CELLOPHANER MACHINE HELPER BASIC METABOLIC PANEL Timed 07/24/2018 4:31 AM BANDER AND CELLOPHANER MACHINE HELPER CT ABDOMEN PELVIS WO STAT 07/24/2018 CONTRAST 2:15 AM BANDER AND CELLOPHANER MACHINE HELPER LACTIC ACID LEVEL, SEPSIS Timed 07/23/2018 - NOW AND REPEAT 2X EVERY 11:55 PM BANDER AND CELLOPHANER MACHINE HELPER 3 HOURS TROPONIN Timed 07/23/2018 11:55 PM BANDER AND CELLOPHANER MACHINE HELPER LACTIC ACID LEVEL, SEPSIS Timed 07/23/2018 - NOW AND REPEAT 2X EVERY 8:10 PM BANDER AND CELLOPHANER MACHINE HELPER 3 HOURS TROPONIN Timed 07/23/2018 8:10 PM BANDER AND CELLOPHANER MACHINE HELPER ECG 12-LEAD STAT 07/23/2018 7:44 PM BANDER AND CELLOPHANER MACHINE HELPER XR CHEST 2 VW STAT 07/23/2018 5:04 PM BANDER AND CELLOPHANER MACHINE HELPER LACTIC ACID LEVEL, SEPSIS STAT 07/23/2018 - NOW AND REPEAT 2X EVERY 3:50 PM BANDER AND CELLOPHANER MACHINE HELPER 3 HOURS PARTIAL THROMBOPLASTIN STAT 07/23/2018 TIME (PTT) 3:50 PM BANDER AND CELLOPHANER MACHINE HELPER PROTHROMBIN TIME WITH INR STAT 07/23/2018 3:50 PM BANDER AND CELLOPHANER MACHINE HELPER ESTIMATED GFR STAT 07/23/2018 3:50 PM BANDER AND CELLOPHANER MACHINE HELPER B NATRIURETIC PEPTIDE STAT 07/23/2018 3:50 PM BANDER AND CELLOPHANER MACHINE HELPER TROPONIN STAT 07/23/2018 3:50 PM BANDER AND CELLOPHANER MACHINE HELPER COMPREHENSIVE METABOLIC STAT 07/23/2018 PANEL 3:50 PM BANDER AND CELLOPHANER MACHINE HELPER HC COMPLETE BLD COUNT STAT 07/23/2018 W/AUTO DIFF 3:50 PM BANDER AND CELLOPHANER MACHINE HELPER HCG QUALITATIVE, URINE Routine 07/23/2018 SCREEN 3:40 PM BANDER AND CELLOPHANER MACHINE HELPER URINE DRUGS OF ABUSE Routine 07/23/2018 SCREEN 3:40 PM BANDER AND CELLOPHANER MACHINE HELPER URINALYSIS SCREEN AND STAT 07/23/2018 MICROSCOPY, WITH REFLEX 3:40 PM BANDER AND CELLOPHANER MACHINE HELPER TO CULTURE INFLUENZA ANTIGEN Routine 07/23/2018 3:40 PM BANDER AND CELLOPHANER MACHINE HELPER RESPIRATORY PATHOGEN Routine 07/23/2018 PANEL 3:40 PM BANDER AND CELLOPHANER MACHINE HELPER ECG 12-LEAD STAT 07/23/2018 3:23 PM BANDER AND CELLOPHANER MACHINE HELPER after 04/06/2018 Results * Cv stress test (07/24/2018 4:40 PM BANDER AND CELLOPHANER MACHINE HELPER) Resting HR 102 [facility] MUSE Resting BP [...] At Performing Organization Address City/State/Zipcode Phone Number [facility] MUSE [address] [place] [address] * Troponin (07/24/2018 3:06 PM BANDER AND CELLOPHANER MACHINE HELPER) Only the most recent of 6 results within the time period is included. Troponin <0.30 0.00 - 0.30 ng/mL ARNOLD Comment: JUDAISM AMBRIZ 0.11 - 1.49 [facility] indicate increased risk of acute coronary syndrome. >=1.5 ng/ml Consistent with acute myocardial infarction. The diagnostic value of a single normal or non-diagnostic result is questionable.Serial samples at 2-6 hour intervals are required to rule out acute myocardial injury. Specimen Plasma specimen Performing Organization Address City/State/Zipcode Phone Number [facility] DEPARTMENT OF [address] [place] [address] PATHOLOGY AND GENOMIC MEDICINE [facility] [address] [place] [address] [facility] * Echocardiogram complete w contrast and 3D if needed (07/24/2018 1:40 PM BANDER AND CELLOPHANER MACHINE HELPER) Velocity Ratio 0.94 m/s [facility] (V1/V2) [...] Stage II diastolic dysfunction. Performing Organization Address City/[facility]/Zipcode Phone Number [facility] [address] [place] [address] * Estimated GFR (07/24/2018 4:31 AM BANDER AND CELLOPHANER MACHINE HELPER) Only the most recent of 2 results within the time period is included. Estimated GFR >=90 mL/min/1.73 m2 ARNOLD Comment: [facility] G1 >=90 Normal or high G2 60-89Mildly decreased [id number] Mildly to moderately decreased [id number] Moderately to severely decreased G4 15-29Severely decreased G5 <15Kidney failure The eGFR was calculated using the Chronic Kidney Disease Epidemiology Collaboration (CKD-EPI) equation. Interpretation is based on recommendations of the National Kidney Foundation-Kidney Disease Outcomes Quality Initiative (NKF-KDOQI) published in 2014. Specimen Plasma specimen Performing Organization Address City/State/Zipcode Phone Number [facility] DEPARTMENT OF [address] [place] [address] PATHOLOGY AND GENOMIC MEDICINE [facility] [address] [place], [place] [id number] [place] [address] * CBC with platelet and differential (07/24/2018 4:31 AM BANDER AND CELLOPHANER MACHINE HELPER) Only the most recent of 2 results within the time period is included. WBC 3.9 (L) 4.2 - 11.0 k/uL [facility] RBC 3.39 (L) 4.04 - 5.86 m/uL [facility] HGB 10.7 (L) 11.5 - 15.3 g/dL [facility] HCT 33.9 (L) 34.0 - 45.0 % [facility] MCV 100.0 (H) 80.0 - 98.0 fL [facility] MCH 31.6 27.0 - 34.0 pg [facility] MCHC 31.6 31.5 - 36.5 g/dL [facility] RDW - SD 60.8 (H) 37.0 - 51.0 fL [facility] MPV 9.2 7.4 - 10.4 fL [facility] Platelet count 235 150 - 400 k/uL [facility] Nucleated RBC 0.00 /100 WBC [facility] Neutrophils 81.2 (H) 36.0 - 66.0 % [facility] Lymphocytes 11.2 (L) 24.0 - 44.0 % [facility] Monocytes 6.5 (H) 0.0 - 6.0 % [facility] Eosinophils 0.0 0.0 - 6.0 % [facility] Basophils 0.3 0.0 - 1.2 % [facility] Immature 0.8 0.0 - 1.0 % ARNOLD granulocytes [facility] Specimen Blood Performing Organization Address City/[facility]/Zipcode Phone Number [facility] DEPARTMENT OF [address] [place] [phone] PATHOLOGY AND GENOMIC MEDICINE [address] * Hemoglobin A1c (07/24/2018 4:31 AM BANDER AND CELLOPHANER MACHINE HELPER) [facility] Hemoglobin A1C 4.8 4.0 - 6.0 % ARNOLD Comment: NA[facility]Y [facility]RIZ [facility] Less than 6% - Goal of therapy for Type II Diabetes Less than 7%-Goal of therapy for Type I Diabetes Less than 8%-Accepta ble control for Type I or Type II Diabetes Greater than 8%-Unacceptabl e control; action indicated. ([id number]) Specimen Blood Performing Organization Address City/[facility]/Zipcode Phone Number [place] [phone] [place] [phone] PATHOLOGY AND [facility] MEDICINE [address] * Lipid panel (07/24/2018 4:31 AM BANDER AND CELLOPHANER MACHINE HELPER) [facility] Cholesterol 229 (H) 0 - 199 mg/dL [facility] Triglycerides 56 0 - 149 mg/dL [facility] HDL cholesterol 137 40 - 9,999 mg/dL [facility] LDL cholesterol 101 (H)Comment: Result 0 - 99 mg/dL ARNOLD obtained by direct LDL [facility] Lipid panel See below ARNOLD interpretation Comment: [facility] Total Cholesterol [facility] (mg/dL) [facility] LDL Cholesterol (mg/dL) <200 Desirable <100 Optimal 200-239Borderline -[id number] 29Near or above optimal >=240High 130-159Borderline- high [...] mg/dL) Specimen Plasma specimen Performing Organization Address City/[facility] Cent[facility]ode Phone Number [facility] DEPARTMENT [facility] [place] [address] PATHOLOGY AND GENOMIC MEDICINE [facility] [address] * Basic metabolic panel (07/24/2018 4:31 AM BANDER AND CELLOPHANER MACHINE HELPER) Sodium 138 135 - 150 mEq/L [facility] Potassium 4.2 3.5 - 5.0 mEq/L [facility] Chloride 104 98 - 112 mEq/L [facility] CO2 23 (L) 24 - 31 mmol/L [facility] Anion gap 11@ANIO 7 - 15 mEq/L [facility] BUN 10 7 - 18 mg/dL [facility] Creatinine 0.60 0.50 - 0.90 mg/dL [facility] Glucose 151 (H) 65 - 100 mg/dL [facility] Calcium 9.4 8.3 - 10.2 mg/dL [facility] Specimen Plasma specimen Performing Organization Address City/[facility]/Zipcode Phone Number [place] [id number] [place] [address] PATHOLOGY AND GENOMIC MEDICINE [facility] [address] * CT Abdomen Pelvis Wo Contrast (07/24/2018 2:15 AM BANDER AND CELLOPHANER MACHINE HELPER) Specimen Narrative Performed At Examination:CT ABDOMEN PELVIS [...] abnormality identified in the abdomen or pelvis. [facility]-[id number] Procedure Note Interface, Radiology Results Incoming - 07/24/2018 2:53 AM BANDER AND CELLOPHANER MACHINE HELPER Examination: CT ABDOMEN PELVIS WO CONTRAST Clinical [...] abnormality identified in the abdomen or pelvis. [facility]-[id number] Performing Organization Address City/State/Zipcode Phone Number [facility] [address] [place] [address] * Lactic acid level, SEPSIS - Now and repeat 2x every 3 hours (07/23/2018 11:55 PM BANDER AND CELLOPHANER MACHINE HELPER) Only the most recent of 3 results within the time period is included. Lactic acid 2.1 0.5 - 2.2 mmol/L [facility] Specimen Blood Performing Organization Address City/[facility] Centercode Phone Number [facility] DE[facility] OF [address] [place] [address] PATHOLOGY AND GENOMIC MEDICINE [facility] [address] * ECG 12 lead (07/23/2018 7:44 PM BANDER AND CELLOPHANER MACHINE HELPER) Only the most recent of 2 results within the time period is included. Ventricular 94 [facility] MUSE rate Atrial rate 94 [facility] M[facility] WI interval 116 [facility] M[facility] QRSD interval 90 [facility] M[facility] QT interval 368 [facility] QTC interval 460 [facility] P axis 1 48 [facility] QRS axis 1 52 [facility] M[facility] T wave axis 65 [facility] EKG impression Normal sinus rhythm-Normal [facility] MUSE ECG-In automated comparison with ECG of 23-JUL-2018 15:23,-No significant change was found- Specimen Narrative Performed At Performing Organization Address [facility] Centercode Phone Number [facility] MUSE [address] [place] [address] * XR Chest 2 Vw (07/23/2018 5:04 PM BANDER AND CELLOPHANER MACHINE HELPER) Specimen Narrative Performed At EXAMINATION:XR CHEST 2 VW RADIANT CLINICAL HISTORY:Shortness of breath COMPARISON:November 06, 2017 IMPRESSION: 1.Lungs are clear and the heart size is normal. 2.The vessels are not congested. There are no pleural effusions. 3.There are postoperative changes in the lower cervical spine and upper abdomen. [facility]-[id number] Procedure Note Hm Interface, Radiology Results Incoming - 07/23/2018 5:16 PM BANDER AND CELLOPHANER MACHINE HELPER EXAMINATION: XR CHEST 2 VW CLINICAL HISTORY: Shortness of breath COMPARISON: November 06, 2017 IMPRESSION: 1. Lungs are clear and the heart size is normal. 2. The vessels are not congested. There are no pleural effusions. 3. There are postoperative changes in the lower cervical spine and upper abdomen. [id number] Performing Organization Address City/State/Zipcode Phone Number [facility] [address] [place] [address] * Partial thromboplastin time, activated (07/23/2018 3:50 PM BANDER AND CELLOPHANER MACHINE HELPER) PTT 29.8 23.0 - 36.0 sec ARNOLD Comment: NAOMY AMBRIZ PTT therapeutic range for JILLIAN unfractionated heparin is HOSPITAL 61.0-112.0 seconds which corresponds to Anti-Xa 0.3-0.7 U/ml. Note:Change in Panic Value The PTT Panic Value is changing from 110 sec. to 100 sec. due to new instrumentation and reagents. Correlation studies have been performed to validate this result. Specimen Blood Performing Organization Address [facility] Centercohi Phone Number [facility] DEPARTMENT [address] [place] [address] * Prothrombin time with INR (07/23/2018 3:50 PM BANDER AND CELLOPHANER MACHINE HELPER) Pathologist [facility] Prothrombin 11.7 11.5 - 14.[address] [facility] INR 0.88 ARNOLD Comment: NAOMY AMBRIZ For patients on anticoagulant JILLIAN therapy, reference ranges HOSPITAL below: Indication: INR Value Treatment of Venous Thrombosis, 2.0-3.0 pulmonary emboli, or prophylaxis of a venous thrombosis, or systemic emboli. High dose, high risk patients 3.0-4.5 with mechanical valves. NOTE:INR values over 3.0 are sometimes associated with gastrointestinal hemorrhage, especially values over 4.0. Specimen Blood Performing Organization Address [facility]/Zipcode Phone Number [facility] DEPARTMENT OF [address] [place] [address] PATHOLOGY [address] * B natriuretic peptide (07/23/2018 3:50 PM BANDER AND CELLOPHANER MACHINE HELPER) BNP 59 0 - 100 pg/mL [facility] Specimen Blood Performing Organization Address City/[facility]/Zipcode Phone Number [facility] [place] [address] [place] [address] [place] [address] PATHOLOGY AND GENOMIC MEDICINE [place] [id number] * Comprehensive metabolic panel (07/23/2018 3:50 PM BANDER AND CELLOPHANER MACHINE HELPER) [facility] Sodium 138 135 - 150 mEq/L [facility] Potassium 4.1 3.5 - 5.0 mEq/L [facility] Chloride 104 98 - 112 mEq/L [facility] CO2 20 (L) 24 - 31 mmol/L [facility] Anion gap 14@ANIO 7 - 15 mEq/L [facility] BUN 7 7 - 18 mg/dL [facility] Creatinine 0.60 0.50 - 0.90 mg/dL [facility] Glucose 81 65 - 100 mg/dL [facility] Calcium 9.0 8.3 - 10.2 mg/dL [facility] Protein 6.9 6.3 - 8.3 g/dL [facility] Albumin 3.4 (L) 3.5 - 5.0 g/dL [facility] A/G ratio 1.0 0.7 - 3.8 [facility] Alkaline 85 0 - 104 U/L ARNOLD phosphatase [facility] AST 63 (H) 10 - 35 U/L [facility] ALT 50 5 - 50 U/L [facility] Total bilirubin 0.4 0.2 - 1.2 mg/dL [facility] Specimen Plasma specimen Performing Organization Address City/State/Zipcode Phone Number [facility] DEPARTMENT [facility] [place] [address] PATHOLOGY AND GENOMIC MEDICINE [facility] [address] * Respiratory pathogen panel (07/23/2018 3:40 PM BANDER AND CELLOPHANER MACHINE HELPER) [facility] Respiratory Negative for all pathogens ARNOLD pathogen panel tested: JUDAISM Negative for Adenovirus [facility] Negative for Coronavirus HKU1 Negative [...] Right Performing Organization Address City/State/Zipcode Phone Number [facility] DEPARTMENT OF [address] [place] [address] PATHOLOGY AND GENOMIC MEDICINE [address] * Urinalysis screen and microscopy, with reflex to culture (07/23/2018 3:40 PM BANDER AND CELLOPHANER MACHINE HELPER) Specimen site Clean catch [facility] Color, UA Colorless [facility] Appearance, UA Clear [facility] Specific 1.002 1.001 - 1.035 ARNOLD gravity, [facility] pH, UA 6.0 5.0 - 8.5 [facility] Protein, UA Negative Negative [facility] Glucose, UA Negative Negative [facility] Ketones, UA Negative Negative [facility] Bilirubin, UA Negative Negative [facility] Blood, UA Small (A) Negative [facility] Nitrite, UA Negative Negative [facility] Urobilinogen, Negative <2.0 [facility] Leukocyte Negative Negative ARNOLD esterase, UA [facility] Epithelial Few /HPF ARNOLD cells, UA [facility] WBC, UA <1 0 - 5 /HPF [facility] RBC, UA 2 0 - 5 /HPF [facility] Bacteria, UA Trace None seen [facility] Yeast, UA None seen [facility] Yeast with None seen ARNOLD pseudohyphae, [facility] Specimen Urine Performing Organization Address City/[facility] Centercode Phone Number [facility] DEPARTMENT OF [address] [place] [phone] PATHOLOGY AND GENOMIC MEDICINE [facility] [address] * hCG qualitative, urine screen (07/23/2018 3:40 PM BANDER AND CELLOPHANER MACHINE HELPER) hCG Negative Negative ARNOLD qualitative, Comment: NAOMY AMBRIZ urine The manufacturers stated [facility] sensitivity of HcG test for HOSPITAL serum is >/=10 mIU/ml and urine is >/=20mIU/ml. Specimen Urine Performing Organization Address [facility] Phone Number [facility] DEPARTMENT OF [address] [place] [address] PATHOLOGY AND GENOMIC MEDICINE [facility] [address] * Urine drugs of abuse screen (07/23/2018 3:40 PM BANDER AND CELLOPHANER MACHINE HELPER) Pathologist [facility] Amphetamine Negative ARNOLD screen, urine [facility] Barbiturate Negative ARNOLD screen, urine [facility] Benzodiazepine Negative ARNOLD screen, urine [facility] Cannabinoid Positive (A) ARNOLD screen, urine [facility] Cocaine screen, Negative ARNOLD urine [facility] Methadone Negative ARNOLD metabolite [facility] (EDDP), urine [facility] Opiates screen, Positive (A) ARNOLD urine [facility] Phencyclidine Negative ARNOLD screen, urine [facility] Specimen Urine Performing Organization Address [facility] Phone Number [facility] DEPARTMENT OF [address] [place] [address] PATHOLOGY AND GENOMIC MEDICINE [facility] [address] * Influenza antigen (07/23/2018 3:40 PM BANDER AND CELLOPHANER MACHINE HELPER) Influenza Negative for Influenza A/B ARNOLD antigen antigen. JUDAISM [facility] Comment: JILLIAN Specimen Information HOSPITAL Specimen Source: Nares Specimen Site: Right Specimen Nares - Right Performing Organization Address City/[facility]de Phone Number [facility] DEPARTMENT OF [address] [place] [address] PATHOLOGY AND GENOMIC MEDICINE [facility] [address] [place] [address] [facility] after 04/06/2018 Insurance Type Payer Benefit Subscriber ID Effective Phone Address Plan / Dates Group HMO [employer] AMER[employer] xxxxxxxxx 2018- -AMERIVANT Present AGE MCR O O [facility] MEDICAID [facility] xxxxxxxxx 2017-P COMM STAR+ resent KYM Advance Directives For more information, please contact: [phone] Patient Radio Maintainer Explanation Type Date Recorded Advance Directives, 01/24/2017 10:58 PM Living Will and Medical Power of Patient Services Clerk Advance Directives, 10/20/2015 11:17 AM Living Will and Medical Power of Patient Services Clerk Advance Directives, 06/30/2017 12:52 PM Living Will and Medical Power of Patient Services Clerk Advance Directives, 07/23/2018 9:30 PM Living Will and Medical Power of Patient Services Clerk Date Inactivated Comments Code Status Date Activated 02/05/2017 8:01 PM Full Code 02/05/2017 2:31 AM Code Status decision reached by: Patient
--- OUTSIDE RECORDS SUMMARY | 2019-04-07 09:30 | XMS REPORT | Continuity of Care Document ---
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 Information Exchange Unavailable Unavailable Problems Problem Status [...] Orally Once a day Narome Zahira Diaz [place] 1 tablet as needed Orally Active 5-325 MG Orally every 6 hrs Najam Zahira Najam [place] 1 tablet as needed Orally Active 10-325 [...] Active 200 MG [facility] Allergies, Adverse Reactions, Alerts Substance Category [...] Source [facility] pain all over body [id number] 11/05/2015 11/05/2015 [facility]ir[facility] pain all over body [id number] 11/05/2015 11/05/2015 Zahira N[facility] pain all over body [id number] 11/05/2015 11/05/2015 Zahira N[facility]ca [facility] pain all over body [id number] 11/05/2015 11/05/2015 Zahira [facility] pain all over body [id number] 11/05/2015 11/05/2015 Zahira N[facility]ca [facility] pain all over body [id number] 11/05/2015 11/05/2015 Zahira N[facility]ca [facility] pain all over body [id number] 11/05/2015 11/05/2015 Zahira Nahca [facility] pain all over body [id number] 11/05/2015 11/05/2015 [facility]iraruben Joy [facility] Follow up- Labs [id number] 11/26/2015 11/26/2015 [facility] Follow up- Labs [id number] 11/26/2015 11/26/2015 [facility] Follow up- Labs [id number] 11/26/2015 11/26/2015 [facility] Follow up- Labs [id number] 11/26/2015 11/26/2015 [facility] Follow up- Labs [id number] 11/26/2015 11/26/2015 [facility] Follow up- Labs [id number] 11/26/2015 11/26/2015 [facility] Follow up- Labs [id number] 11/26/2015 11/26/2015 [facility] Right Wrist MRI [id number] 12/15/2015 12/15/2015 [facility] Right Wrist MRI [id number] 12/15/2015 12/15/2015 [facility] Right Wrist MRI [id number] 12/15/2015 12/15/2015 [facility] Right Wrist MRI [id number] 12/15/2015 12/15/2015 [facility] Right Wrist MRI [id number] 12/15/2015 12/15/2015 [facility] Right Wrist MRI [id number] 12/15/2015 12/15/2015 [facility] Follow up [id number] 01/07/2016 01/07/2016 [facility] Follow up [id number] 01/07/2016 01/07/2016 [facility] Follow up [id number] 01/07/2016 01/07/2016 [facility] Follow up [id number] 01/07/2016 01/07/2016 [facility] Follow up [id number] 01/07/2016 01/07/2016 [facility] pain - needs direction [id number] 02/16/2016 02/16/2016 [facility] pain - needs direction [id number] 02/16/2016 02/16/2016 [facility] Rheumatology [facility] pain - needs direction [id number] 02/16/2016 02/16/2016 [facility] pain - needs direction [id number] 02/16/2016 02/16/2016 [facility] Lyrica refill [id number] 03/12/2016 03/12/2016 [facility] Rheumat[facility] Lyrica refill [id number] 03/12/2016 03/12/2016 [facility] Lyrica refill [id number] 03/12/2016 03/12/2016 [facility] lyrica rx [id number] 04/05/2016 04/05/2016 [facility] lyrica rx [id number] 04/05/2016 04/05/2016 [facility] [place] [facility] Follow up 3 Month [id number] 04/14/2016 04/14/2016 Zahira Diaz Procedures No Data [...]
[2019-04-07] MEDS ORDERED: MORPHINE SULFATE INJ 4 MG/ML INJ 1ML IV ONE (10:15)
--- NOTE | 2019-04-07 10:40 | NUR ---
CTA D/C PER DR SORTO. PATIENT HAD CT RIGHT LOWER EXTREMITY 04/06/19.
--- NOTE | 2019-04-07 10:42 | NUR ---
NOTIFIED LAB FOR BLOOD COLLECTION, X3 UNSUCCESSFUL ATTEMPTS.
--- NOTE | 2019-04-07 10:48 | NUR ---
DELIVERY ENGINEER AT BEDSIDE FOR BLOOD COLLECTION. NO SIGNS OF ACUTE DISTRESS NOTED DURING TRIAGE.
[2019-04-07 11:00] LABS: BASOPHILS % 0.5 % (0.0-1.0); EOSINOPHILS % 0.7 % (0.0-6.0); HEMATOCRIT 25.8 % (34.2-44.1); HEMOGLOBIN 8.2 g/dL (12.0-16.0); LYMPHOCYTES % 16.4 % (18.0-39.1); MEAN CORPUSCULAR HEMOGLOBIN 30.4 pg (28-32); MEAN CORPUSCULAR HGB CONC 31.8 g/dL (31-35); MEAN CORPUSCULAR VOLUME 95.6 fL (81-99); MONOCYTES # (AUTO) 0.7 (0.2-0.8); MONOCYTES % 11.1 % (4.4-11.3); NEUTROPHILS # (AUTO) 4.2 (2.1-6.9); NEUTROPHILS % 70.8 % (38.7-80.0); PLATELET COUNT 257 x10e3/uL (140-360); RED CELL DISTRIBUTION WIDTH 16.9 % (11.7-14.4)
[2019-04-07] MEDS ORDERED: HYDROCODONE/APAP 5MG-325MG TAB PO ONE (11:00)
[2019-04-07 11:09] LABS: INR 0.88; PARTIAL THROMBOPLASTIN TIME 28.1 seconds (23.8-35.5); PROTHROMBIN TIME 12.4 seconds (11.9-14.5)
--- NOTE | 2019-04-07 11:13 | NUR ---
PATIENT LAYING IN BED WITH EYES CLOSED. SKIN WARM AND DRY. RESP EVEN AND UNLABORED. NO SIGNS OF ACUTE DISTRESS NOTED AT THIS TIME.
[2019-04-07 11:18] LABS: ALANINE AMINOTRANSFERASE 116 IU/L (0-55); ALBUMIN 3.4 g/dL (3.5-5.0); ALBUMIN/GLOBULIN RATIO 1.2 (0.8-2.0); ALKALINE PHOSPHATASE 110 IU/L (40-150); ANION GAP 17.7 mmol/L (8-16); BLOOD UREA NITROGEN 7 mg/dL (7-26); BUN/CREATININE RATIO 11 (6-25); CARBON DIOXIDE 19 mmol/L (22-29); CHLORIDE 103 mmol/L (98-107); CREATININE, SERUM 0.64 mg/dL (0.57-1.11); EST GLOMERULAR FILTRATION RATE > 60 ML/MIN (60-); GLUCOSE 78 mg/dL (74-118); POTASSIUM 3.7 mmol/L (3.5-5.1); SODIUM 136 mmol/L (136-145)
--- NOTE | 2019-04-07 11:32 | NUR ---
PATIENT REQUESTING FOOD, SANDWHICH AND SODA GIVEN TO PATIENT. OK PER DR SORTO.
--- OUTSIDE RECORDS SUMMARY | 2019-04-07 11:54 | XMS REPORT | Continuity of Care Document ---
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 [employer] Information Exchange Unavailable Unavailable Problems Problem Status [...] MG Orally Once a day Najam 01/07/2016 Zahria Najam [place] 1 capsule Orally Active 100 [...] Orally Once a day Narome Zahira Diaz [place] 1 tablet as needed Orally Active 5-325 MG Orally every 6 hrs Najam Zahira Najam [place] 1 tablet as needed Orally Active 10-325 [...] Active 200 MG [facility]ally [facility] Allergies, Adverse Reactions, [...] Source [facility] pain all over body [id number] 11/05/2015 11/05/2015 [facility]ir[facility]uben Joy [facility] pain all over body [id number] 11/05/2015 11/05/2015 Zahira [facility] pain all over body [id number] 11/05/2015 11/05/2015 [facility]ahira [facility] pain all over body [id number] 11/05/2015 11/05/2015 [facility] body [id number] 11/05/2015 11/05/2015 Zahira [facility] pain all over body [id number] 11/05/2015 11/05/2015 Zahira [facility] pain all over body [id number] 11/05/2015 11/05/2015 Zahira [facility] pain all over body [id number] 11/05/2015 11/05/2015 Zahiraruben Joy [facility] Follow up- Labs [id number] 11/26/2015 11/26/2015 [facility] Follow up- Labs [id number] 11/26/2015 11/26/2015 [facility] Follow up- Labs [id number] 11/26/2015 11/26/2015 [facility] Follow up- Labs [id number] 11/26/2015 11/26/2015 [facility] Follow up- Labs [id number] 11/26/2015 11/26/2015 [facility] Follow up- Labs [id number] 11/26/2015 11/26/2015 [facility] Follow up- Labs [id number] 11/26/2015 11/26/2015 [facility] Right Wrist MRI [id number] 12/15/2015 12/15/2015 [facility] Right Wrist MRI [id number] 12/15/2015 12/15/2015 [facility] Right Wrist MRI [id number] 12/15/2015 12/15/2015 [facility] Right Wrist MRI [id number] 12/15/2015 12/15/2015 [facility] Right Wrist MRI [id number] 12/15/2015 12/15/2015 [facility] Right Wrist MRI [id number] 12/15/2015 12/15/2015 [facility] Follow up [id number] 01/07/2016 01/07/2016 [facility] Follow up [id number] 01/07/2016 01/07/2016 [facility] Follow up [id number] 01/07/2016 01/07/2016 [facility] Follow up [id number] 01/07/2016 01/07/2016 [facility] Follow up [id number] 01/07/2016 01/07/2016 [facility] pain - needs direction [id number] 02/16/2016 02/16/2016 [facility] pain - needs direction [id number] 02/16/2016 02/16/2016 [facility] Rheumat[facility] pain - needs direction [id number] 02/16/2016 02/16/2016 [facility] pain - needs direction [id number] 02/16/2016 02/16/2016 [facility] Lyrica refill [id number] 03/12/2016 03/12/2016 [facility] Rheumat[facility] Lyrica refill [id number] 03/12/2016 03/12/2016 [facility] Lyrica refill [id number] 03/12/2016 03/12/2016 [facility] lyrica rx [id number] 04/05/2016 04/05/2016 [facility] lyrica rx [id number] 04/05/2016 04/05/2016 [facility] Follow [facility] 3 Month [id number] 04/14/2016 04/14/2016 Zahira Diaz Procedures No Data [...]
--- OUTSIDE RECORDS SUMMARY | 2019-04-07 11:54 | XMS REPORT | Clinical Summary ---
Author Author [employer] Organization [employer] Address Unknown Phone Unavailable Care Team Providers Care Lease Purchase Driver Name Role Phone Asked, No Pcp PCP [...] Comments Vital Sign 127/63 07/24/2018 5:18 PM NECK FITTER Blood Pressure 98 07/24/2018 5:18 PM NECK FITTER Pulse 36.6 C (97.9 F) 07/24/2018 5:18 PM NECK FITTER Temperature 17 07/24/2018 5:18 PM NECK FITTER Respiratory Rate 97% 07/24/2018 5:18 PM NECK FITTER Oxygen Saturation - - Inhaled Oxygen Concentration 74.5 kg (164 lb 3.9 oz) 07/23/2018 8:51 PM NECK FITTER Weight 165.1 cm (5' 5") 07/23/2018 8:51 PM NECK FITTER Height 27.33 07/23/2018 8:51 PM NECK FITTER Body Mass Index Plan of Treatment Health Maintenance Due Date Last Done Comments CERVICAL CANCER SCREENING 1991 INFLUENZA VACCINE 03/08/2019 Procedures Comments Procedure Name Priority Date/Time Associated Diagnosis CV STRESS TEST NUCLEAR Routine 07/24/2018 CARDIO 4:40 PM NECK FITTER TROPONIN Timed 07/24/2018 3:06 PM NECK FITTER ECHOCARDIOGRAM 2D Routine 07/24/2018 COMPLETE W MMODE SPECTRAL 1:40 PM NECK FITTER COLOR DOPPLER ([id number]) TROPONIN Timed 07/24/2018 9:05 AM NECK FITTER TROPONIN Timed 07/24/2018 4:31 AM NECK FITTER ESTIMATED GFR Timed 07/24/2018 4:31 AM NECK FITTER HEMOGLOBIN A1C Timed 07/24/2018 4:31 AM NECK FITTER LIPID PANEL Timed 07/24/2018 4:31 AM NECK FITTER HC COMPLETE BLD COUNT Timed 07/24/2018 W/AUTO DIFF 4:31 AM NECK FITTER BASIC METABOLIC PANEL Timed 07/24/2018 4:[address] ABDOMEN PELVIS WO STAT 07/24/2018 CONTRAST 2:15 AM NECK FITTER LACTIC ACID LEVEL, SEPSIS Timed 07/23/2018 - NOW AND REPEAT 2X EVERY 11:55 PM NECK FITTER 3 HOURS TROPONIN Timed 07/23/2018 11:55 PM NECK FITTER LACTIC ACID LEVEL, SEPSIS Timed 07/23/2018 - NOW AND REPEAT 2X EVERY 8:10 PM NECK FITTER 3 HOURS TROPONIN Timed 07/23/2018 8:10 PM NECK FITTER ECG 12-LEAD STAT 07/23/2018 7:44 PM NECK FITTER XR CHEST 2 VW STAT 07/23/2018 5:04 PM NECK FITTER LACTIC ACID LEVEL, SEPSIS STAT 07/23/2018 - NOW AND REPEAT 2X EVERY 3:50 PM NECK FITTER 3 HOURS PARTIAL THROMBOPLASTIN STAT 07/23/2018 TIME (PTT) 3:50 PM NECK FITTER PROTHROMBIN TIME WITH INR STAT 07/23/2018 3:50 PM NECK FITTER ESTIMATED GFR STAT 07/23/2018 3:50 PM NECK FITTER B NATRIURETIC PEPTIDE STAT 07/23/2018 3:50 PM NECK FITTER TROPONIN STAT 07/23/2018 3:50 PM NECK FITTER COMPREHENSIVE METABOLIC STAT 07/23/2018 PANEL 3:50 PM NECK FITTER HC COMPLETE BLD COUNT STAT 07/23/2018 W/AUTO DIFF 3:50 PM NECK FITTER HCG QUALITATIVE, URINE Routine 07/23/2018 SCREEN 3:40 PM NECK FITTER URINE DRUGS OF ABUSE Routine 07/23/2018 SCREEN 3:40 PM NECK FITTER URINALYSIS SCREEN AND STAT 07/23/2018 MICROSCOPY, WITH REFLEX 3:40 PM NECK FITTER TO CULTURE INFLUENZA ANTIGEN Routine 07/23/2018 3:40 PM NECK FITTER RESPIRATORY PATHOGEN Routine 07/23/2018 PANEL 3:40 PM NECK FITTER ECG 12-LEAD STAT 07/23/2018 3:23 PM NECK FITTER after 04/06/2018 Results * Cv stress test (07/24/2018 4:40 PM NECK FITTER) Resting HR 102 [facility] MUSE Resting BP [...] At Performing Organization Address City/State/Zipcode Phone Number [facility] MUSE [address] [place] [address] * Troponin (07/24/2018 3:06 PM NECK FITTER) Only the most recent of 6 results within the time period is included. Troponin <0.30 0.00 - 0.30 ng/mL KANE Comment: [facility] AMBRIZ 0.11 - 1.49 [facility] indicate increased risk of acute coronary syndrome. >=1.5 ng/ml Consistent with acute myocardial infarction. The diagnostic value of a single normal or non-diagnostic result is questionable.Serial samples at 2-6 hour intervals are required to rule out acute myocardial injury. Specimen Plasma specimen Performing Organization Address City/State/Zipcode Phone Number [facility] [address] [place] [address] PATHOLOGY AND GENOMIC MEDICINE [facility] [address] [place] [address] [facility] * Echocardiogram complete w contrast and 3D if needed (07/24/2018 1:40 PM NECK FITTER) Velocity Ratio 0.94 m/s [facility] (V1/V2) [...] Stage II diastolic dysfunction. Performing Organization Address City/[facility]/Zipcode Phone Number [facility] [address] [place] [address] * Estimated GFR (07/24/2018 4:31 AM NECK FITTER) Only the most recent of 2 results within the time period is included. Estimated GFR >=90 mL/min/1.73 m2 KANE Comment: [facility] G1 >=90 Normal or high G2 60-89Mildly decreased [id number] Mildly to moderately decreased [id number] Moderately to severely decreased G4 15-29Severely decreased G5 <15Kidney failure The eGFR was calculated using the Chronic Kidney Disease Epidemiology Collaboration (CKD-EPI) equation. Interpretation is based on recommendations of the National Kidney Foundation-Kidney Disease Outcomes Quality Initiative (NKF-KDOQI) published in 2014. Specimen Plasma specimen Performing Organization Address City/State/Zipcode Phone Number [facility] DEPARTMENT OF [address] [place] [address] PATHOLOGY AND GENOMIC MEDICINE [facility] [address] [place], [place] [id number] [place] [address] * CBC with platelet and differential (07/24/2018 4:31 AM NECK FITTER) Only the most recent of 2 results within the time period is included. WBC 3.9 (L) 4.2 - 11.0 k/uL [facility] RBC 3.39 (L) 4.04 - 5.86 m/uL [facility] HGB 10.7 (L) 11.5 - 15.3 g/dL [facility] HCT 33.9 (L) 34.0 - 45.0 % [facility] MCV 100.0 (H) 80.0 - 98.0 fL [facility] MCH 31.6 27.0 - 34.0 pg [facility] MCHC 31.6 31.5 - 36.5 g/dL [facility] RDW - SD 60.8 (H) 37.0 - 51.0 fL [facility] MPV 9.2 7.4 - 10.4 fL [facility] Platelet count 235 150 - 400 k/uL [facility] Nucleated RBC 0.00 /100 WBC [facility] Neutrophils 81.2 (H) 36.0 - 66.0 % [facility] Lymphocytes 11.2 (L) 24.0 - 44.0 % [facility] Monocytes 6.5 (H) 0.0 - 6.0 % [facility] Eosinophils 0.0 0.0 - 6.0 % [facility] Basophils 0.3 0.0 - 1.2 % [facility] Immature 0.8 0.0 - 1.0 % KANE granulocytes [facility] Specimen Blood Performing Organization Address City/[facility]/Zipcode Phone Number [facility] OF [address] [place] [phone] PATHOLOGY AND GENOMIC MEDICINE [address] * Hemoglobin A1c (07/24/2018 4:31 AM NECK FITTER) [facility] Hemoglobin A1C 4.8 4.0 - 6.0 % KANE Comment: [facility] Less than 6% - Goal of therapy for Type II Diabetes Less than 7%-Goal of therapy for Type I Diabetes Less than 8%-Accepta ble control for Type I or Type II Diabetes Greater than 8%-Unacceptabl e control; action indicated. ([id number]) Specimen Blood Performing Organization Address City/[facility]/Zipcode Phone Number [place] [phone] [place] [phone] PATHOLOGY AND [facility] MEDICINE [address] * Lipid panel (07/24/2018 4:31 AM NECK FITTER) [facility] Cholesterol 229 (H) 0 - 199 mg/dL [facility] Triglycerides 56 0 - 149 mg/dL [facility] HDL cholesterol 137 40 - 9,999 mg/dL [facility] LDL cholesterol 101 (H)Comment: Result 0 - 99 mg/dL KANE obtained by direct LDL [facility] Lipid panel See below KANE interpretation Comment: [facility] Total Cholesterol [facility] (mg/dL) [facility] LDL Cholesterol (mg/dL) <200 Desirable <100 Optimal 200-239Borderline -[id number] 29Near or above optimal >=240High 130-159Borderline- high [...] mg/dL) Specimen Plasma specimen Performing Organization Address City/[facility] Phone Number [facility] [place] [address] PATHOLOGY AND GENOMIC MEDICINE [facility] [address] * Basic metabolic panel (07/24/2018 4:31 AM NECK FITTER) Sodium 138 135 - 150 mEq/L [facility] Potassium 4.2 3.5 - 5.0 mEq/L [facility] Chloride 104 98 - 112 mEq/L [facility] CO2 23 (L) 24 - 31 mmol/L [facility] Anion gap 11@ANIO 7 - 15 mEq/L [facility] BUN 10 7 - 18 mg/dL [facility] Creatinine 0.60 0.50 - 0.90 mg/dL [facility] Glucose 151 (H) 65 - 100 mg/dL [facility] Calcium 9.4 8.3 - 10.2 mg/dL [facility] Specimen Plasma specimen Performing Organization Address City/[facility]/Zipcode Phone Number [place] [phone] [place] [address] PATHOLOGY AND GENOMIC MEDICINE [facility] [address] * CT Abdomen Pelvis Wo Contrast (07/24/2018 2:15 AM NECK FITTER) Specimen Narrative Performed At Examination:CT ABDOMEN PELVIS [...] abnormality identified in the abdomen or pelvis. [facility]-[id number] Procedure Note Interface, Radiology Results Incoming - 07/24/2018 2:53 AM NECK FITTER Examination: CT ABDOMEN PELVIS WO CONTRAST Clinical [...] abnormality identified in the abdomen or pelvis. [facility]-[id number] Performing Organization Address City/State/Zipcode Phone Number [facility] [address] [place] [address] * Lactic acid level, SEPSIS - Now and repeat 2x every 3 hours (07/23/2018 11:55 PM NECK FITTER) Only the most recent of 3 results within the time period is included. Lactic acid 2.1 0.5 - 2.2 mmol/L [facility] Specimen Blood Performing Organization Address City/[facility] Hospitalcode Phone Number [facility] OF [address] [place] [address] PATHOLOGY AND GENOMIC MEDICINE [facility] [address] * ECG 12 lead (07/23/2018 7:44 PM NECK FITTER) Only the most recent of 2 results within the time period is included. Ventricular 94 [facility] MUSE rate Atrial rate 94 [facility] AR interval 116 [facility] QRSD interval 90 [facility] QT interval 368 [facility] QTC interval 460 [facility] P axis 1 48 [facility] QRS axis 1 52 [facility] T wave axis 65 [facility] EKG impression Normal sinus rhythm-Normal [facility] MUSE ECG-In automated comparison with ECG of 23-JUL-2018 15:23,-No significant change was found- Specimen Narrative Performed At Performing Organization Address [facility] Phone Number [facility] MUSE [address] [place] [address] * XR Chest 2 Vw (07/23/2018 5:04 PM NECK FITTER) Specimen Narrative Performed At EXAMINATION:XR CHEST 2 VW RADIANT CLINICAL HISTORY:Shortness of breath COMPARISON:November 06, 2017 IMPRESSION: 1.Lungs are clear and the heart size is normal. 2.The vessels are not congested. There are no pleural effusions. 3.There are postoperative changes in the lower cervical spine and upper abdomen. [facility]-[id number] Procedure Note Hm Interface, Radiology Results Incoming - 07/23/2018 5:16 PM NECK FITTER EXAMINATION: XR CHEST 2 VW CLINICAL HISTORY: Shortness of breath COMPARISON: November 06, 2017 IMPRESSION: 1. Lungs are clear and the heart size is normal. 2. The vessels are not congested. There are no pleural effusions. 3. There are postoperative changes in the lower cervical spine and upper abdomen. [id number] Performing Organization Address City/State/Zipcode Phone Number [facility] [address] [place] [address] * Partial thromboplastin time, activated (07/23/2018 3:50 PM NECK FITTER) PTT 29.8 23.0 - 36.0 sec KANE Comment: NAOMY AMBRIZ PTT therapeutic range for JILLIAN unfractionated heparin is HOSPITAL 61.0-112.0 seconds which corresponds to Anti-Xa 0.3-0.7 U/ml. Note:Change in Panic Value The PTT Panic Value is changing from 110 sec. to 100 sec. due to new instrumentation and reagents. Correlation studies have been performed to validate this result. Specimen Blood Performing Organization Address [facility] Hospitalcosc Phone Number [facility] [address] [place] [address] * Prothrombin time with INR (07/23/2018 3:50 PM NECK FITTER) Pathologist [facility] Prothrombin 11.7 11.5 - 14.5 sec KANE time [facility] INR 0.88 KANE Comment: NAOMY AMBRIZ For patients on anticoagulant JILLIAN therapy, reference ranges HOSPITAL below: Indication: INR Value Treatment of Venous Thrombosis, 2.0-3.0 pulmonary emboli, or prophylaxis of a venous thrombosis, or systemic emboli. High dose, high risk patients 3.0-4.5 with mechanical valves. NOTE:INR values over 3.0 are sometimes associated with gastrointestinal hemorrhage, especially values over 4.0. Specimen Blood Performing Organization Address [facility]/Zipcode Phone Number [facility] OF [address] [place] [address] PATHOLOGY [address] * B natriuretic peptide (07/23/2018 3:50 PM NECK FITTER) BNP 59 0 - 100 pg/mL [facility] Specimen Blood Performing Organization Address City/[facility]/Zipcode Phone Number [facility] [place] [address] [place] [address] [place] [address] PATHOLOGY AND GENOMIC MEDICINE [place] [id number] * Comprehensive metabolic panel (07/23/2018 3:50 PM NECK FITTER) [facility] Sodium 138 135 - 150 mEq/L [facility] Potassium 4.1 3.5 - 5.0 mEq/L [facility] Chloride 104 98 - 112 mEq/L [facility] CO2 20 (L) 24 - 31 mmol/L [facility] Anion gap 14@ANIO 7 - 15 mEq/L [facility] BUN 7 7 - 18 mg/dL [facility] Creatinine 0.60 0.50 - 0.90 mg/dL [facility] Glucose 81 65 - 100 mg/dL [facility] Calcium 9.0 8.3 - 10.2 mg/dL [facility] Protein 6.9 6.3 - 8.3 g/dL [facility] Albumin 3.4 (L) 3.5 - 5.0 g/dL [facility] A/G ratio 1.0 0.7 - 3.8 [facility] Alkaline 85 0 - 104 U/L KANE phosphatase [facility] AST 63 (H) 10 - 35 U/L [facility] ALT 50 5 - 50 U/L [facility] Total bilirubin 0.4 0.2 - 1.2 mg/dL [facility] Specimen Plasma specimen Performing Organization Address City/State/Zipcode Phone Number [facility] [place] [address] PATHOLOGY AND GENOMIC MEDICINE [facility] [address] * Respiratory pathogen panel (07/23/2018 3:40 PM NECK FITTER) [facility] Respiratory Negative for all pathogens KANE pathogen panel tested: [facility] Negative for Adenovirus [facility] Negative for Coronavirus HKU1 Negative for Coronavirus [...] Right Performing Organization Address City/State/Zipcode Phone Number [facility] DEPARTMENT OF [address] [place] [address] PATHOLOGY AND GENOMIC MEDICINE [address] * Urinalysis screen and microscopy, with reflex to culture (07/23/2018 3:40 PM NECK FITTER) Specimen site Clean catch [facility] Color, UA Colorless [facility] Appearance, UA Clear [facility] Specific 1.002 1.001 - 1.035 KANE gravity, [facility] pH, UA 6.0 5.0 - 8.5 [facility] Protein, UA Negative Negative [facility] Glucose, UA Negative Negative [facility] Ketones, UA Negative Negative [facility] Bilirubin, UA Negative Negative [facility] Blood, UA Small (A) Negative [facility] Nitrite, UA Negative Negative [facility] Urobilinogen, Negative <2.0 [facility] Leukocyte Negative Negative KANE esterase, UA [facility] Epithelial Few /HPF KANE cells, UA [facility] WBC, UA <1 0 - 5 /HPF [facility] RBC, UA 2 0 - 5 /HPF [facility] Bacteria, UA Trace None seen [facility] Yeast, UA None seen [facility] Yeast with None seen KANE pseudohyphae, [facility] Specimen Urine Performing Organization Address City/[facility] Phone Number [facility] OF [address] [place] [phone] PATHOLOGY AND GENOMIC MEDICINE [facility] [address] * hCG qualitative, urine screen (07/23/2018 3:40 PM NECK FITTER) hCG Negative Negative KANE qualitative, Comment: NAOMY AMBRIZ urine The manufacturers stated [facility] sensitivity of HcG test for HOSPITAL serum is >/=10 mIU/ml and urine is >/=20mIU/ml. Specimen Urine Performing Organization Address [facility] Phone Number [facility] OF [address] [place] [address] PATHOLOGY AND GENOMIC MEDICINE [facility] [address] * Urine drugs of abuse screen (07/23/2018 3:40 PM NECK FITTER) Pathologist [facility] Amphetamine Negative KANE screen, urine [facility] Barbiturate Negative KANE screen, urine [facility] Benzodiazepine Negative KANE screen, urine [facility] Cannabinoid Positive (A) KANE screen, urine [facility] Cocaine screen, Negative KANE urine [facility] Methadone Negative KANE metabolite [facility]), urine [facility] Opiates screen, Positive (A) KANE urine [facility] Phencyclidine Negative KANE screen, urine [facility] Specimen Urine Performing Organization Address [facility] Phone Number [facility] OF [address] [place] [address] PATHOLOGY AND GENOMIC MEDICINE [facility] [address] * Influenza antigen (07/23/2018 3:40 PM NECK FITTER) Influenza Negative for Influenza A/B KANE antigen antigen. [facility] Comment: JILLIAN Specimen Information HOSPITAL Specimen Source: Nares Specimen Site: Right Specimen Nares - Right Performing Organization Address City/[facility] Phone Number [facility] OF [address] [place] [address] PATHOLOGY AND GENOMIC MEDICINE [facility] [address] [place] [address] [facility] after 04/06/2018 Insurance Type Payer Benefit Subscriber ID Effective Phone Address Plan / Dates Group HMO [employer] xxxxxxxxx 2018- -AMERIVANT Present AGE MCR O O [facility] MEDICAID [facility] xxxxxxxxx 2017-P COMM STAR+ resent KYM Advance Directives For more information, please contact: [phone] 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
--- OUTSIDE RECORDS SUMMARY | 2019-04-07 11:55 | XMS REPORT ---
Author Author [facility] Address Unknown Phone Unavailable Care Team Providers Care Hacksaw Inspector Name Role Phone LUBNA OLIVAREZ Unavailable Unavailable Rhett JESUS Unavailable Unavailable Problems This patient has no known problems. Allergies, Adverse Reactions, Alerts This patient has no known allergies or adverse reactions. Medications This patient has no known medications. Results Test Description Test Time Test Comments Text Results Atomic Results Result Comments CT RIGHT LOWER EXTREMITY W 2019-04-06 08:46:00 [place] [address] Patient Name: STEVEN QUARLES MR #: [id number] : 1970 Age/Sex: 48/F Req #: [id number] Adm Physician: LUBNA OLIVAREZ MD Ordered by: LUDA FROST DO Report #: [id number] Location: [facility] Room/Bed: [place] [address] Procedure: [id number] CT/CT RIGHT LOWER EXTREMITY W Exam Date: Exam Time: REPORT STATUS: Signed CT right lower extremity, 04/06/2019. History: Right leg hematoma. Comparison: X-ray from earlier today. Technique: Multidetector imaging of the pelvis was performed from the level of the iliac crests to the proximal femurs after IV administration contrast. Coronal and sagittal reconstructions were performed. RADIATION DOSE: Total DLP: 845 mGy*cm Dose modulation, iterative reconstruction, and/or weight based adjustment of the mA/kV was utilized to reduce the radiation dose to as low as reasonably achievable. Discussion: A 9.8 x 5.0 x 11.1 cm subcutaneous hematoma is seen in the anterolateral thigh compressing the adjacent musculature with surrounding subcutaneous edema. A 6 x 17 mm focus of hyperdensity is present within the medial aspect of the hematoma suggestive of contrast extravasation. The bones are intact. There is no evidence of fracture or dislocation. There is no evidence of lytic or sclerotic lesion. IMPRESSION: 1. Large right anterolateral thigh subcutaneous hematoma with small focus of active extravasation noted medially. Findings were discussed with ER physician at 9:00 AM on 04/06/2019. 2. No evidence of fracture or dislocation. Signed by: Luda Crocker on 04/06/2019 9:05 AM Dictated By: LUDA CROCKER MD 4 Transcribed By: EMERSON on 04/06/19904 COPY TO: LUDA FROST DO CHEST SINGLE (PORTABLE) 2019-04-06 07:01:00 [place] [address] Patient Name: STEVEN QUARLES MR #: [id number] : 1970 Age/Sex: 48/F Req #: [id number] Adm Physician: LUBNA OLIVAREZ MD Ordered by: LUDA FROST DO Report #: [id number] Location: [facility] Room/Bed: [place] [address] Procedure: [id number] DX/CHEST SINGLE (PORTABLE) Exam Date: 04/06/19 Exam Time: 0620 REPORT STATUS: Signed Examination: Single AP view of the chest. COMPARIS ON: 08/21/2017 INDICATION: Shortness of breath DISCUSSION: The lungs are well-inflated and without focal airspace consolidation, pleural effusion, or pneumothorax. Cardiomediastinal contour and pulmonary vasculature are within normal limits for portable, AP technique. Spine fusion hardware partially visualized. No acute osseous abnormality. IMPRESSION: No acute cardiopulmonary abnormality. Signed by: Dr. Parris Parada M.D. on 04/06/2019 7:03 AM Dictated By: PARRIS PARADA MD 2 Transcribed By: EMERSON on 04/06/19702 COPY TO: LUDA FROST DO FEMUR TWO VIEW MINIMUM RIGHT 2019-04-06 06:58:00 [place] [address] Patient Name: STEVEN QUARLES MR #: [id number] : 1970 Age/Sex: 48/F Req #: [id number] Adm Physician: LUBNA OLIVAREZ MD Ordered by: LUDA FROST DO Report #: [id number] Location: [facility] Room/Bed: [place] [address] Procedure: [id number] DX/FEMUR TWO VIEW MINIMUM RIGHT Exam Date: Exam Time: REPORT STATUS: Signed Exam: Right femur, 2 views History: Status post fall Comparison: None. Findings: No acute, displaced fracture or dislocation of the femur. There is irregularity of the medial aspect of the right superior Pubic ramus, suboptimally visualized. Soft tissues are unremarkable. Impression: The right femur is intact. Questionable cortical deformity of the right superior pubic ramus may be further evaluated by pelvic and right hip radiographs. Signed by: Dr. Parris Parada M.D. on 04/06/2019 7:01 AM Dictated By: PARRIS PARADA MD 0 Transcribed By: EMERSON on 04/06/19 07 COPY TO: LUDA FROST DO CHEST SINGLE (PORTABLE) [place] [address] Patient Name: STEVEN QUARLES MR #: [id number] : 1970 Age/Sex: 47/F Req #: [id number] Adm Physician: Ordered by: LUDA GARCÍA TEXTILE CONVERSION MANAGER Report #: [id number] Location: ER Room/Bed: Procedure: [id number] DX/CHEST SINGLE (PORTABLE) Exam Date: 08/21/17 Exam Time: 1835 REPORT STATUS: Signed EXAM: XR CHEST 1 VIEW DATE: 08/21/2017 6:03 PM INDICATION: Fever COMPARISON: 01/10/2017 FINDINGS: Lines and Tubes: None Heart and Mediastinum: No acute findings. Lungs and Pleura: Minimal opacities in the lung bases statistically represent atelectasis, however, infectious process could have a similar appearance. Bones and Soft Tissues: No acute findings. IMPRESSION: 1. Probable basilar atelectasis. Signed by: Dr. Blas Durant MD on 08/21/2017 6:40 PM Dictated By: BLAS DURANT MD 39 Transcribed By: EMERSON on 08/21/171839 COPY TO: LUDA GARCÍA TEXTILE CONVERSION MANAGER
[2019-04-07] MEDS ORDERED: MORPHINE SULFATE 2 MG/ML SYR 1ML IV PRN (12:30)
--- NOTE | 2019-04-07 12:40 | NUR ---
NOTIFIED DR SORTO UNABLE TO GET PERIPHERAL IV X5 ATTEMPTS. OK TO OBTAIN EJ PER DR SORTO.
--- NOTE | 2019-04-07 12:55 | NUR ---
EDUCATED PATIENT ON THE CURRENT PLAN OF CARE,VERBALIZED UNERSTANDING. TRANSPORTED TO ROOM 286 VIA STRETCHER. NO SIGNS OF ACUTE DISTRESS NOTED AT THIS TIME.
[2019-04-07 13:00] VITALS: BP 156/80
--- NOTE | 2019-04-07 13:00 | NUR ---
Received pt from ER at this time. Pt is aox4 and able to verbalize needs. Complain of pain to right hip 02/14. Hematoma noted right hip. Pt is able to verbalize needs. Pt can ambulate with minimum assistance.
[2019-04-07 13:43] VITALS: BP 156/80
[2019-04-07 16:30] VITALS: BP 133/84
[2019-04-07] MEDS: HYDROMORPHONE 1MG/1ML INJ IV PRN ×3 (16:31→22:53)
--- NOTE | 2019-04-07 19:05 | NUR ---
Patient visited in room during nursing rounds. Patient alert and oriented x3. Ambulatory prn using a walker. Right leg with frequent pain secondary to swelling and hematoma around right thigh. Right thigh covered with Nilson wrap. Ice application off and on on the right leg. Call gonzáles within reach.
[2019-04-07] MEDS: SODIUM CHLORIDE 0.9% 1000ML 1,000 ML IV SCH (19:44)
[2019-04-07 20:00] VITALS: BP 133/72
[2019-04-08] VITALS (8 sets, daily range): BP systolic 107–138; BP diastolic 60–78
[2019-04-08] MEDS: HYDROMORPHONE 1MG/1ML INJ IV PRN ×7 (02:23→21:11)
--- NOTE | 2019-04-08 05:44 | NUR ---
H&P cc: right leg hematoma HPIL: 48yoF, PCP ??, with hx alcoholism, after heavy alcohol ingestion, had trauma to right leg, with resulting hematoma, came to ER, seen by orthopedics for hematoma of right leg, surgery not performed due to concerns for bleeding, asked to f/u in clinic, now representing for re-eval and Pain control. Pt states that initial injury occurred while fishing on the [employer] in [place], with call onto [employer]. PMH: alcoholism, aggressive behavior, stomach cancer, lymphoma, melanoma, diverticulosis, chr back pain, current cig use PShx: back, neck, gastric bypass, Allergies; see emr Fh/Sh; alcoholism 12 beers daily; 1ppd cigs; Meds; see MAR ROS: no f/c/s/N/V/D/ANTON/.vision changes/cp/sob/dizziness. v/s; revd PE: tired appearing anicteric ns1s2 mod bs soft nt nd right thigh blue/black changes/larger than left thigh/tenderness/edematous skin dry flat affect a&ox3; bagley labs/meds; revd A/P: 48yoF Right leg hematoma Pain control Alcoholism Overweight BMI 29.8 Moderate anemia Transaminitis Current nicotine dependence PLAN; Ortho re-eval Pain control Home meds Prop; pepcid Dispo Jason Coronado MD, PhD.
[2019-04-08] MEDS: DOCUSATE SODIUM 100 MG CAP PO SCH ×2 (06:00→12:56)
[2019-04-08 06:26] LABS: BASOPHILS % 0.7 % (0.0-1.0); EOSINOPHILS # (AUTO) 0.2 (0.0-0.4); EOSINOPHILS % 3.8 % (0.0-6.0); HEMATOCRIT 24.5 % (34.2-44.1); HEMOGLOBIN 7.5 g/dL (12.0-16.0); LYMPHOCYTES # (AUTO) 1.2 (1.0-3.2); MEAN CORPUSCULAR HEMOGLOBIN 29.6 pg (28-32); MEAN CORPUSCULAR HGB CONC 30.6 g/dL (31-35); MEAN CORPUSCULAR VOLUME 96.8 fL (81-99); MONOCYTES # (AUTO) 0.5 (0.2-0.8); NEUTROPHILS # (AUTO) 2.4 (2.1-6.9); NEUTROPHILS % 57.3 % (38.7-80.0); PLATELET COUNT 248 x10e3/uL (140-360); RED BLOOD COUNT 2.53 x10e6/uL (3.6-5.1); RED CELL DISTRIBUTION WIDTH 16.9 % (11.7-14.4)
[2019-04-08] MEDS: SUCRALFATE 1 GM TAB PO SCH ×3 (07:43→17:06)
[2019-04-08] MEDS: FAMOTIDINE 20 MG TAB PO SCH ×2 (07:44→17:06)
[2019-04-08] MEDS: GABAPENTIN 300 MG CAP PO SCH ×2 (07:44→17:06)
[2019-04-08] MEDS: CARISOPRODOL 350 MG TAB PO SCH ×2 (07:44→17:06)
--- NOTE | 2019-04-08 07:54 | NUR ---
Pt in received in bed. Aox4 and able to verbalize needs. Pt still complaining of pain to right hip. breath are even and unlabored.
[2019-04-08] MEDS: SODIUM CHLORIDE 0.9% 1000ML 1,000 ML IV SCH ×2 (08:49→23:45)
[2019-04-08] MEDS ORDERED: CARISOPRODOL 350 MG TAB PO SCH (09:00)
--- NOTE | 2019-04-08 09:56 | NUR ---
Spoke with Dr. Coronado to report drop in Hgb this morning. Received orders to redraw hgb at 1600. Also informed him that Dr. Rodríguez had called to let him know that he will not be seeing pt today due to no change in condition from tuesday when she was seen by his PA. He will be teamcenter consultant if change in condition.
[2019-04-08 17:05] LABS: HEMATOCRIT 25.4 % (34.2-44.1); HEMOGLOBIN 7.8 g/dL (12.0-16.0)
--- NOTE | 2019-04-08 19:00 | NUR ---
BS rounds completed with morning nurse. Pt alert and oriented to name. Lying in bed HOB 45 degrees. Denies pain at this time. Call gonzáles within reach. Will continue to monitor.
--- NOTE | 2019-04-08 20:25 | NUR ---
Pt states she smokes [address] Coronado ordered Nicotine patch 21mg daily and ordered CBC in am, H/H 7.8/25.4. Call eliecer within reach.
[2019-04-08] MEDS: NICOTINE 21 MG/EA PATCH TOP SCH (21:00)
[2019-04-08] MEDS ORDERED: ZOLPIDEM TARTRATE 10 MG TAB PO SCH (21:00)
[2019-04-09] VITALS: BP 126/84
[2019-04-09] MEDS: HYDROMORPHONE 1MG/1ML INJ IV PRN ×3 (00:55→07:57)
[2019-04-09] MEDS: SODIUM CHLORIDE 0.9% 1000ML 1,000 ML IV SCH (03:43)
[2019-04-09 04:00] VITALS: BP 141/89
[2019-04-09 05:44] LABS: BASOPHILS % 0.6 % (0.0-1.0); EOSINOPHILS # (AUTO) 0.2 (0.0-0.4); EOSINOPHILS % 3.4 % (0.0-6.0); HEMATOCRIT 25.8 % (34.2-44.1); LYMPHOCYTES # (AUTO) 1.3 (1.0-3.2); LYMPHOCYTES % 19.5 % (18.0-39.1); MEAN CORPUSCULAR HEMOGLOBIN 30.3 pg (28-32); MEAN CORPUSCULAR VOLUME 97.7 fL (81-99); MONOCYTES # (AUTO) 0.5 (0.2-0.8); NEUTROPHILS # (AUTO) 4.4 (2.1-6.9); NEUTROPHILS % 68.2 % (38.7-80.0); PLATELET COUNT 280 x10e3/uL (140-360); RED BLOOD COUNT 2.64 x10e6/uL (3.6-5.1); RED CELL DISTRIBUTION WIDTH 16.9 % (11.7-14.4)
--- NOTE | 2019-04-09 06:54 | NUR ---
D/C summary Principal Dx: Right leg hematoma Pain control Alcoholism Overweight BMI 29.8 Moderate anemia Transaminitis Current nicotine dependence PLAN; Ortho re-eval Pain control Home meds Prop; pepcid Dispo check anemia panel doing better; d/c home d/c>35mins d/c home stable f/u pcp 3-5 days; D/C with multivitamin and ferrous sulfate. Jason Coronado MD, PhD.
[2019-04-09] MEDS ORDERED: FERROUS SULFAT325 MG PO (07:10)
[2019-04-09] MEDS ORDERED: MULTIVITAMINS1 EAC6 PO (07:10)
[2019-04-09] MEDS ORDERED: ULTRAM 50MG50 MG PO (07:10)
[2019-04-09] MEDS ORDERED: NICODERM CQ1 EAC2 TOP (07:10)
--- NOTE | 2019-04-09 07:15 | NUR ---
Rounds completed bedside with morning nurses. Patient c/o Mild right hip pain, previously medicated. No acute distress noted.
[2019-04-09 07:39] VITALS: BP 135/63
--- NOTE | 2019-04-09 07:57 | NUR ---
Morning rounding completed. Patient resting in bed, no signs of distress. Will monitor and prepare for discharge.
[2019-04-09] MEDS: FAMOTIDINE 20 MG TAB PO SCH (07:58)
[2019-04-09] MEDS: SUCRALFATE 1 GM TAB PO SCH (07:58)
[2019-04-09] MEDS: NICOTINE 21 MG/EA PATCH TOP SCH (07:58)
[2019-04-09] MEDS: CARISOPRODOL 350 MG TAB PO SCH (08:06)
[2019-04-09] MEDS: GABAPENTIN 300 MG CAP PO SCH (08:06)
[2019-04-09 08:29] LABS: FERRITIN 28.81 ng/mL (4.63-204.00)
--- NOTE | 2019-04-09 08:58 | NUR ---
RECEIVED DC ORDER FROM MD. PATIENT IS IN STABLE CONDITION. IV LINE TO R EJ DCD WITH TIP INTACT, PRESSURE APPLIED TO SITE, NO BLEEDING NOTED. DISCHARGE TEACHING PROVIDED TO PATIENT, SHE VERBALIZED UNDERSTANDING. DISCHARGE FOLDER WITH PRESCRIPTIONS ON HAND. PERSONAL ITEMS ON HAND. PATIENT ACCOMPANIED TO PRIVATE AUTO VIA WHEELCHAIR BY STAFF.
[2019-04-09 09:02] VITALS: BP 135/63
--- NOTE | 2019-04-09 09:38 | NUR ---
IMM LETTER EXPLAINED TO PT. PT VERBALIZED UNDERSTANDING. IMM LETTER SIGNED. COPY TO PT AND COPY TO CHART.
== END 2019-04-09 09:06 | disposition home or self-care (01) ==
LOC: ER 09:27 → INTOOBSV 11:43 → ERHOLD 11:43 → MED/SURG3 13:26
PROVIDERS: ADMIT Internal Medicine; ATTEND Internal Medicine
DX: S70.11XA Contusion of right thigh, initial encounter (principal); Z91.19 Patient's noncompliance with other medical treatment and regimen; F10.20 Alcohol dependence, uncomplicated; Z98.84 Bariatric surgery status; E66.3 Overweight; Z68.29 Body mass index [BMI] 29.0-29.9, adult; D64.9 Anemia, unspecified; R74.0 Nonspecific elevation of levels of transaminase and lactic acid dehydrogenase [LDH]; F17.210 Nicotine dependence, cigarettes, uncomplicated
CPT/HCPCS: 36415 ×3; 80053; 82607; 82728; 83540; 84466; 85014; 85018; 85025 ×3; 85610; 85730; 96360; 96361; 99284; G0378 ×3; J1170 ×3; J2270; J7030 ×2

== ENCOUNTER 2019-05-06 16:07 | Emergency (ER) | payer MEDICARE, OTHER ==
[~2019-05-06] VITALS: Ht 165.1 cm; Wt 81.2 kg
[~2019-05-06 16:07] MED LIST changes: +FERROUS SULFAT325 MG PO; +MULTIVITAMINS1 EAC6 PO; +NICODERM CQ1 EAC2 TOP; +ULTRAM 50MG50 MG PO
--- OUTSIDE RECORDS SUMMARY | 2019-05-06 16:10 | XMS REPORT | Clinical Summary ---
Author Author [facility] Organization [facility] Address Unknown Phone Unavailable Care Team Providers Care Sink Cutter Name Role Phone Asked, No Pcp PCP [...] unspecified type 06/17/2018 Refill Family Medicine after 05/05/2018 Social History Date Tobacco Use Types Packs/Day [...] Comments Vital Sign 127/63 07/24/2018 5:18 PM MARKETING PROGRAMS MANAGER Blood Pressure 98 07/24/2018 5:18 PM MARKETING PROGRAMS MANAGER Pulse 36.6 C (97.9 F) 07/24/2018 5:18 PM MARKETING PROGRAMS MANAGER Temperature 17 07/24/2018 5:18 PM MARKETING PROGRAMS MANAGER Respiratory Rate 97% 07/24/2018 5:18 PM MARKETING PROGRAMS MANAGER Oxygen Saturation - - Inhaled Oxygen Concentration 74.5 kg (164 lb 3.9 oz) 07/23/2018 8:51 PM MARKETING PROGRAMS MANAGER Weight 165.1 cm (5' 5") 07/23/2018 8:51 PM MARKETING PROGRAMS MANAGER Height 27.33 07/23/2018 8:51 PM MARKETING PROGRAMS MANAGER Body Mass Index Plan of Treatment Health Maintenance Due Date Last Done Comments CERVICAL CANCER SCREENING 1991 INFLUENZA VACCINE 03/08/2019 Procedures Comments Procedure Name Priority Date/Time Associated Diagnosis CV STRESS TEST NUCLEAR Routine 07/24/2018 CARDIO 4:40 PM MARKETING PROGRAMS MANAGER TROPONIN Timed 07/24/2018 3:06 PM MARKETING PROGRAMS MANAGER ECHOCARDIOGRAM 2D Routine 07/24/2018 COMPLETE W MMODE SPECTRAL 1:40 PM MARKETING PROGRAMS MANAGER COLOR DOPPLER ([id number]) TROPONIN Timed 07/24/2018 9:05 AM MARKETING PROGRAMS MANAGER TROPONIN Timed 07/24/2018 4:31 AM MARKETING PROGRAMS MANAGER ESTIMATED GFR Timed 07/24/2018 4:31 AM MARKETING PROGRAMS MANAGER HEMOGLOBIN A1C Timed 07/24/2018 4:31 AM MARKETING PROGRAMS MANAGER LIPID PANEL Timed 07/24/2018 4:31 AM MARKETING PROGRAMS MANAGER HC COMPLETE BLD COUNT Timed 07/24/2018 W/AUTO DIFF 4:31 AM MARKETING PROGRAMS MANAGER BASIC METABOLIC PANEL Timed 07/24/2018 4:31 AM MARKETING PROGRAMS [address] CT ABDOMEN PELVIS WO STAT 07/24/2018 CONTRAST 2:15 AM MARKETING PROGRAMS MANAGER LACTIC ACID LEVEL, SEPSIS Timed 07/23/2018 - NOW AND REPEAT 2X EVERY 11:55 PM MARKETING PROGRAMS MANAGER 3 HOURS TROPONIN Timed 07/23/2018 11:55 PM MARKETING PROGRAMS MANAGER LACTIC ACID LEVEL, SEPSIS Timed 07/23/2018 - NOW AND REPEAT 2X EVERY 8:10 PM MARKETING PROGRAMS MANAGER 3 HOURS TROPONIN Timed 07/23/2018 8:10 PM MARKETING PROGRAMS MANAGER ECG 12-LEAD STAT 07/23/2018 7:44 PM MARKETING PROGRAMS MANAGER XR CHEST 2 VW STAT 07/23/2018 5:04 PM MARKETING PROGRAMS MANAGER LACTIC ACID LEVEL, SEPSIS STAT 07/23/2018 - NOW AND REPEAT 2X EVERY 3:50 PM MARKETING PROGRAMS MANAGER 3 HOURS PARTIAL THROMBOPLASTIN STAT 07/23/2018 TIME (PTT) 3:50 PM MARKETING PROGRAMS MANAGER PROTHROMBIN TIME WITH INR STAT 07/23/2018 3:50 PM MARKETING PROGRAMS MANAGER ESTIMATED GFR STAT 07/23/2018 3:50 PM MARKETING PROGRAMS MANAGER B NATRIURETIC PEPTIDE STAT 07/23/2018 3:50 PM MARKETING PROGRAMS MANAGER TROPONIN STAT 07/23/2018 3:50 PM MARKETING PROGRAMS MANAGER COMPREHENSIVE METABOLIC STAT 07/23/2018 PANEL 3:50 PM MARKETING PROGRAMS MANAGER HC COMPLETE BLD COUNT STAT 07/23/2018 W/AUTO DIFF 3:50 PM MARKETING PROGRAMS MANAGER HCG QUALITATIVE, URINE Routine 07/23/2018 SCREEN 3:40 PM MARKETING PROGRAMS MANAGER URINE DRUGS OF ABUSE Routine 07/23/2018 SCREEN 3:40 PM MARKETING PROGRAMS MANAGER URINALYSIS SCREEN AND STAT 07/23/2018 MICROSCOPY, WITH REFLEX 3:40 PM MARKETING PROGRAMS MANAGER TO CULTURE INFLUENZA ANTIGEN Routine 07/23/2018 3:40 PM MARKETING PROGRAMS MANAGER RESPIRATORY PATHOGEN Routine 07/23/2018 PANEL 3:40 PM MARKETING PROGRAMS MANAGER ECG 12-LEAD STAT 07/23/2018 3:23 PM MARKETING PROGRAMS MANAGER after 05/05/2018 Results * Cv stress test (07/24/2018 4:40 PM MARKETING PROGRAMS MANAGER) Resting HR 102 [facility] MUSE Resting BP [...] At Performing Organization Address City/State/Zipcode Phone Number [facility] MUSE [address] [place] [address] * Troponin (07/24/2018 3:06 PM MARKETING PROGRAMS MANAGER) Only the most recent of 6 results within the time period is included. Troponin <0.30 0.00 - 0.30 ng/mL ALPHA Comment: CONGREGATIONAL AMBRIZ 0.11 - 1.49 [facility] indicate increased risk of acute coronary syndrome. >=1.5 ng/ml Consistent with acute myocardial infarction. The diagnostic value of a single normal or non-diagnostic result is questionable.Serial samples at 2-6 hour intervals are required to rule out acute myocardial injury. Specimen Plasma specimen Performing Organization Address City/State/Zipcode Phone Number [facility] DEPARTMENT OF [address] [place] [address] PATHOLOGY AND GENOMIC MEDICINE [facility] [address] [place] [address] [facility] * Echocardiogram complete w contrast and 3D if needed (07/24/2018 1:40 PM MARKETING PROGRAMS MANAGER) Velocity Ratio 0.94 m/s [facility] (V1/V2) [...] Stage II diastolic dysfunction. Performing Organization Address City/[facility]/Zipcode Phone Number [facility] [address] [place] [address] * Estimated GFR (07/24/2018 4:31 AM MARKETING PROGRAMS MANAGER) Only the most recent of 2 results within the time period is included. Estimated GFR >=90 mL/min/1.73 m2 ALPHA Comment: [facility] G1 >=90 Normal or high G2 60-89Mildly decreased [id number] Mildly to moderately decreased [id number] Moderately to severely decreased G4 15-29Severely decreased G5 <15Kidney failure The eGFR was calculated using the Chronic Kidney Disease Epidemiology Collaboration (CKD-EPI) equation. Interpretation is based on recommendations of the National Kidney Foundation-Kidney Disease Outcomes Quality Initiative (NKF-KDOQI) published in 2014. Specimen Plasma specimen Performing Organization Address City/State/Zipcode Phone Number [facility] DEPARTMENT OF [address] [place] [address] PATHOLOGY AND GENOMIC MEDICINE [facility] [address] [place], [place] [id number] [place] [address] * CBC with platelet and differential (07/24/2018 4:31 AM MARKETING PROGRAMS MANAGER) Only the most recent of 2 results within the time period is included. WBC 3.9 (L) 4.2 - 11.0 k/uL [facility] RBC 3.39 (L) 4.04 - 5.86 m/uL [facility] HGB 10.7 (L) 11.5 - 15.3 g/dL [facility] HCT 33.9 (L) 34.0 - 45.0 % [facility] MCV 100.0 (H) 80.0 - 98.0 fL [facility] MCH 31.6 27.0 - 34.0 pg [facility] MCHC 31.6 31.5 - 36.5 g/dL [facility] RDW - SD 60.8 (H) 37.0 - 51.0 fL [facility] MPV 9.2 7.4 - 10.4 fL [facility] Platelet count 235 150 - 400 k/uL [facility] Nucleated RBC 0.00 /100 WBC [facility] Neutrophils 81.2 (H) 36.0 - 66.0 % [facility] Lymphocytes 11.2 (L) 24.0 - 44.0 % [facility] Monocytes 6.5 (H) 0.0 - 6.0 % [facility] Eosinophils 0.0 0.0 - 6.0 % [facility] Basophils 0.3 0.0 - 1.2 % [facility] Immature 0.8 0.0 - 1.0 % ALPHA granulocytes [facility] Specimen Blood Performing Organization Address City/[facility]/Zipcode Phone Number [facility] DEPARTMENT OF [address] [place] [phone] PATHOLOGY AND GENOMIC MEDICINE [address] * Hemoglobin A1c (07/24/2018 4:31 AM MARKETING PROGRAMS MANAGER) [facility] Hemoglobin A1C 4.8 4.0 - 6.0 % ALPHA Comment: [facility]Y [facility]RIZ [facility] Less than 6% - Goal of therapy for Type II Diabetes Less than 7%-Goal of therapy for Type I Diabetes Less than 8%-Accepta ble control for Type I or Type II Diabetes Greater than 8%-Unacceptabl e control; action indicated. ([id number]) Specimen Blood Performing Organization Address City/[facility]/Zipcode Phone Number [place] [phone] [place] [phone] PATHOLOGY AND [facility] MEDICINE [address] * Lipid panel (07/24/2018 4:31 AM MARKETING PROGRAMS MANAGER) [facility] Cholesterol 229 (H) 0 - 199 mg/dL [facility] Triglycerides 56 0 - 149 mg/dL [facility] HDL cholesterol 137 40 - 9,999 mg/dL [facility] LDL cholesterol 101 (H)Comment: Result 0 - 99 mg/dL ALPHA obtained by direct LDL [facility] Lipid panel See below ALPHA interpretation Comment: [facility] Total Cholesterol [facility] (mg/dL) [facility] LDL Cholesterol (mg/dL) <200 Desirable <100 Optimal 200-239Borderline -[id number] 29Near or above optimal >=240High 130-159Borderline- high [...] mg/dL) Specimen Plasma specimen Performing Organization Address City/[facility] Centercode Phone Number [facility] DEPARTMENT [facility] [place] [address] PATHOLOGY AND GENOMIC MEDICINE [facility] [address] * Basic metabolic panel (07/24/2018 4:31 AM MARKETING PROGRAMS MANAGER) Sodium 138 135 - 150 mEq/L [facility] Potassium 4.2 3.5 - 5.0 mEq/L [facility] Chloride 104 98 - 112 mEq/L [facility] CO2 23 (L) 24 - 31 mmol/L [facility] Anion gap 11@ANIO 7 - 15 mEq/L [facility] BUN 10 7 - 18 mg/dL [facility] Creatinine 0.60 0.50 - 0.90 mg/dL [facility] Glucose 151 (H) 65 - 100 mg/dL [facility] Calcium 9.4 8.3 - 10.2 mg/dL [facility] Specimen Plasma specimen Performing Organization Address City/[facility]/Zipcode Phone Number [place] [phone] [place] [address] PATHOLOGY AND GENOMIC MEDICINE [facility] [address] * CT Abdomen Pelvis Wo Contrast (07/24/2018 2:15 AM MARKETING PROGRAMS MANAGER) Specimen Narrative Performed At Examination:CT ABDOMEN PELVIS [...] abnormality identified in the abdomen or pelvis. [facility]-[id number] Procedure Note Interface, Radiology Results Incoming - 07/24/2018 2:53 AM MARKETING PROGRAMS MANAGER Examination: CT ABDOMEN PELVIS WO CONTRAST Clinical [...] abnormality identified in the abdomen or pelvis. [facility]-[id number] Performing Organization Address City/State/Zipcode Phone Number [facility] [address] [place] [address] * Lactic acid level, SEPSIS - Now and repeat 2x every 3 hours (07/23/2018 11:55 PM MARKETING PROGRAMS MANAGER) Only the most recent of 3 results within the time period is included. Lactic acid 2.1 0.5 - 2.2 mmol/L [facility] Specimen Blood Performing Organization Address City/[facility] Centercode Phone Number [facility] DE[facility] OF [address] [place] [address] PATHOLOGY AND GENOMIC MEDICINE [facility] [address] * ECG 12 lead (07/23/2018 7:44 PM MARKETING PROGRAMS MANAGER) Only the most recent of 2 results within the time period is included. Ventricular 94 [facility] rate Atrial rate 94 [facility] NM interval 116 [facility] QRSD interval 90 [facility] QT interval 368 [facility] QTC interval 460 [facility] P axis 1 48 [facility] QRS axis 1 52 [facility] T wave axis 65 [facility] EKG impression Normal sinus rhythm-Normal [facility] MUSE ECG-In automated comparison with ECG of 23-JUL-2018 15:23,-No significant change was found- Specimen Narrative Performed At Performing Organization Address [facility] Centercode Phone Number [facility] MUSE [address] [place] [address] * XR Chest 2 Vw (07/23/2018 5:04 PM MARKETING PROGRAMS MANAGER) Specimen Narrative Performed At EXAMINATION:XR CHEST 2 VW RADIANT CLINICAL HISTORY:Shortness of breath COMPARISON:November 06, 2017 IMPRESSION: 1.Lungs are clear and the heart size is normal. 2.The vessels are not congested. There are no pleural effusions. 3.There are postoperative changes in the lower cervical spine and upper abdomen. [facility]-[id number] Procedure Note Hm Interface, Radiology Results Incoming - 07/23/2018 5:16 PM MARKETING PROGRAMS MANAGER EXAMINATION: XR CHEST 2 VW CLINICAL HISTORY: Shortness of breath COMPARISON: November 06, 2017 IMPRESSION: 1. Lungs are clear and the heart size is normal. 2. The vessels are not congested. There are no pleural effusions. 3. There are postoperative changes in the lower cervical spine and upper abdomen. [id number] Performing Organization Address City/State/Zipcode Phone Number [facility] [address] [place] [address] * Partial thromboplastin time, activated (07/23/2018 3:50 PM MARKETING PROGRAMS MANAGER) PTT 29.8 23.0 - 36.0 sec ALPHA Comment: NAOMY AMBRIZ PTT therapeutic range for JILLIAN unfractionated heparin is HOSPITAL 61.0-112.0 seconds which corresponds to Anti-Xa 0.3-0.7 U/ml. Note:Change in Panic Value The PTT Panic Value is changing from 110 sec. to 100 sec. due to new instrumentation and reagents. Correlation studies have been performed to validate this result. Specimen Blood Performing Organization Address [facility] Centercomn Phone Number [facility] DEPARTMENT [address] [place] [address] * Prothrombin time with INR (07/23/2018 3:50 PM MARKETING PROGRAMS MANAGER) Pathologist [facility] Prothrombin 11.7 11.5 - 14.5 sec ALPHA time [facility] INR 0.88 ALPHA Comment: NAOMY AMBRIZ For patients on anticoagulant JILLIAN therapy, reference ranges HOSPITAL below: Indication: INR Value Treatment of Venous Thrombosis, 2.0-3.0 pulmonary emboli, or prophylaxis of a venous thrombosis, or systemic emboli. High dose, high risk patients 3.0-4.5 with mechanical valves. NOTE:INR values over 3.0 are sometimes associated with gastrointestinal hemorrhage, especially values over 4.0. Specimen Blood Performing Organization Address [facility]/Zipcode Phone Number [facility] DEPARTMENT OF [address] [place] [address] PATH[address] * B natriuretic peptide (07/23/2018 3:50 PM MARKETING PROGRAMS MANAGER) BNP 59 0 - 100 pg/mL [facility] Specimen Blood Performing Organization Address City/[facility]/Zipcode Phone Number [facility] [place] [address] [place] [address] [place] [address] PATHOLOGY AND GENOMIC MEDICINE [place] [id number] * Comprehensive metabolic panel (07/23/2018 3:50 PM MARKETING PROGRAMS MANAGER) [facility] Sodium 138 135 - 150 mEq/L [facility] Potassium 4.1 3.5 - 5.0 mEq/L [facility] Chloride 104 98 - 112 mEq/L [facility] CO2 20 (L) 24 - 31 mmol/L [facility] Anion gap 14@ANIO 7 - 15 mEq/L [facility] BUN 7 7 - 18 mg/dL [facility] Creatinine 0.60 0.50 - 0.90 mg/dL [facility] Glucose 81 65 - 100 mg/dL [facility] Calcium 9.0 8.3 - 10.2 mg/dL [facility] Protein 6.9 6.3 - 8.3 g/dL [facility] Albumin 3.4 (L) 3.5 - 5.0 g/dL [facility] A/G ratio 1.0 0.7 - 3.8 [facility] Alkaline 85 0 - 104 U/L ALPHA phosphatase [facility] AST 63 (H) 10 - 35 U/L [facility] ALT 50 5 - 50 U/L [facility] Total bilirubin 0.4 0.2 - 1.2 mg/dL [facility] Specimen Plasma specimen Performing Organization Address City/State/Zipcode Phone Number [facility] DEPARTMENT [facility] [place] [address] PATHOLOGY AND GENOMIC MEDICINE [facility] [address] * Respiratory pathogen panel (07/23/2018 3:40 PM MARKETING PROGRAMS MANAGER) [facility] Respiratory Negative for all pathogens ALPHA pathogen panel tested: CONGREGATIONAL Negative for Adenovirus [facility] Negative for Coronavirus HKU1 Negative [...] Right Performing Organization Address City/State/Zipcode Phone Number [facility] DEPARTMENT OF [address] [place] [address] PATHOLOGY AND GENOMIC MEDICINE [address] * Urinalysis screen and microscopy, with reflex to culture (07/23/2018 3:40 PM MARKETING PROGRAMS MANAGER) Specimen site Clean catch [facility] Color, UA Colorless [facility] Appearance, UA Clear [facility] Specific 1.002 1.001 - 1.035 ALPHA gravity, [facility] pH, UA 6.0 5.0 - 8.5 [facility] Protein, UA Negative Negative [facility] Glucose, UA Negative Negative [facility] Ketones, UA Negative Negative [facility] Bilirubin, UA Negative Negative [facility] Blood, UA Small (A) Negative [facility] Nitrite, UA Negative Negative [facility] Urobilinogen, Negative <2.0 [facility] Leukocyte Negative Negative ALPHA esterase, UA [facility] Epithelial Few /HPF ALPHA cells, UA [facility] WBC, UA <1 0 - 5 /HPF [facility] RBC, UA 2 0 - 5 /HPF [facility] Bacteria, UA Trace None seen [facility] Yeast, UA None seen [facility] Yeast with None seen ALPHA pseudohyphae, [facility] Specimen Urine Performing Organization Address City/[facility] Centercode Phone Number [facility] DEPARTMENT OF [address] [place] [phone] PATHOLOGY AND GENOMIC MEDICINE [facility] [address] * hCG qualitative, urine screen (07/23/2018 3:40 PM MARKETING PROGRAMS MANAGER) hCG Negative Negative ALPHA qualitative, Comment: NAOMY AMBRIZ urine The manufacturers stated [facility] sensitivity of HcG test for HOSPITAL serum is >/=10 mIU/ml and urine is >/=20mIU/ml. Specimen Urine Performing Organization Address [facility] Phone Number [facility] DEPARTMENT OF [address] [place] [address] PATHOLOGY AND GENOMIC MEDICINE [facility] [address] * Urine drugs of abuse screen (07/23/2018 3:40 PM MARKETING PROGRAMS MANAGER) Pathologist [facility] Amphetamine Negative ALPHA screen, urine [facility] Barbiturate Negative ALPHA screen, urine [facility] Benzodiazepine Negative ALPHA screen, urine [facility] Cannabinoid Positive (A) ALPHA screen, urine [facility] Cocaine screen, Negative ALPHA urine [facility] Methadone Negative ALPHA metabolite [facility] (EDDP), urine [facility] Opiates screen, Positive (A) ALPHA urine [facility] Phencyclidine Negative ALPHA screen, urine [facility] Specimen Urine Performing Organization Address [facility] Phone Number [facility] DEPARTMENT OF [address] [facility] [place] [address] PATHOLOGY AND GENOMIC MEDICINE [facility] [address] [facility] [address] * Influenza antigen (07/23/2018 3:40 PM MARKETING PROGRAMS MANAGER) Influenza Negative for Influenza A/B ALPHA antigen antigen. [facility] Comment: JILLIAN Specimen Information HOSPITAL Specimen Source: Nares Specimen Site: Right Specimen Nares - Right Performing Organization Address City/[facility] Phone Number [facility] DEPARTMENT OF [address] [place] [address] PATHOLOGY AND GENOMIC MEDICINE [facility] [address] [place] [address] [facility] after 05/05/2018 Insurance Type Payer Benefit Subscriber ID Effective Phone Address Plan / Dates Group HMO [employer] AMER[employer] xxxxxxxxx 2018- -AMERIVANT Present AGE MCR O O [facility] xxxxxxxxx 2017-P COMM STAR+ resent KYM Advance Directives For more information, please contact: [phone] Patient Residential Mortgage Manager Explanation Type Date Recorded Advance Directives, 01/24/2017 10:58 PM Living Will and Medical Power of Microbiology Technologist Advance Directives, 10/20/2015 11:17 AM Living Will and Medical Power of Microbiology Technologist Advance Directives, 06/30/2017 12:52 PM Living Will and Medical Power of Microbiology Technologist Advance Directives, 07/23/2018 9:30 PM Living Will and Medical Power of Microbiology Technologist Date Inactivated Comments Code Status Date Activated 02/05/2017 8:01 PM Full Code 02/05/2017 2:31 AM Code Status decision reached by: Patient
--- OUTSIDE RECORDS SUMMARY | 2019-05-06 16:10 | XMS REPORT | Continuity of Care Document ---
Author Author [facility] Guarn[facility] Information Epos Address Unknown Phone Unavailable Care Team Providers Care Operations Mgr Name Role Phone [facility] Information Exchange Unavailable Unavailable Problems Problem Status [...] 600 MG Orally Three times a day Naja Zahira Najam Meloxicam 1 tablet Orally Active 15 MG Orally Once a day Najam Zahira Najam Omeprazole 2 capsules Orally Active 10 MG Orally Once a day Narome Zahira Diaz Lanse 1 tablet as needed Orally Active 5-325 MG Orally every 6 hrs Najam Zahira Najam Lanse 1 tablet as needed Orally Active 10-325 [...] MG [facility] Allergies, Adverse Reactions, Alerts Substance [...] Source [facility] pain all over body [id number] 11/05/2015 11/05/2015 [facility] pain all over body [id number] 11/05/2015 11/05/2015 [facility] all over body [id number] 11/05/2015 11/05/2015 [facility] pain all over body [id number] 11/05/2015 11/05/2015 [facility] all over body [id number] 11/05/2015 11/05/2015 [facility] pain all over body [id number] 11/05/2015 11/05/2015 [facility] pain all over body [id number] 11/05/2015 11/05/2015 [facility] pain all over body [id number] 11/05/2015 11/05/2015 [facility] Follow up- Labs [id number] 11/26/2015 11/26/2015 [facility] Follow up- Labs [id number] 11/26/2015 11/26/2015 [facility] Follow up- Labs [id number] 11/26/2015 11/26/2015 [facility] Follow up- Labs [id number] 11/26/2015 11/26/2015 [facility] Follow up- Labs [id number] 11/26/2015 11/26/2015 [facility] Follow up- Labs [id number] 11/26/2015 11/26/2015 [facility] Follow up- Labs [id number] 11/26/2015 11/26/2015 [facility] Right Wrist MRI [id number] 12/15/2015 12/15/2015 [facility] Right Wrist MRI [id number] 12/15/2015 12/15/2015 [facility] Right Wrist MRI [id number] 12/15/2015 12/15/2015 [facility] Right Wrist MRI [id number] 12/15/2015 12/15/2015 [facility] Right Wrist MRI [id number] 12/15/2015 12/15/2015 [facility] Right Wrist MRI [id number] 12/15/2015 12/15/2015 [facility] Follow up [id number] 01/07/2016 01/07/2016 [facility] Follow up [id number] 01/07/2016 01/07/2016 [facility] Follow up [id number] 01/07/2016 01/07/2016 [facility] Follow up [id number] 01/07/2016 01/07/2016 [facility] Follow up [id number] 01/07/2016 01/07/2016 [facility] pain - needs direction [id number] 02/16/2016 02/16/2016 [facility] pain - needs direction [id number] 02/16/2016 02/16/2016 [facility] pain - needs direction [id number] 02/16/2016 02/16/2016 [facility] pain - needs direction [id number] 02/16/2016 02/16/2016 [facility] Lyrica refill [id number] 03/12/2016 03/12/2016 [facility] Lyrica refill [id number] 03/12/2016 03/12/2016 [facility] Lyrica refill [id number] 03/12/2016 03/12/2016 [facility] lyrica rx [id number] 04/05/2016 04/05/2016 [facility] lyrica rx [id number] 04/05/2016 04/05/2016 [facility] Follow up 3 Month [id number] 04/14/2016 04/14/2016 Zahira Diaz Procedures No Data [...]
[2019-05-06] MEDS ORDERED: SODIUM CHLORIDE 0.9% 1000ML 1,000 ML IV STA (16:20)
[2019-05-06] MEDS ORDERED: ONDANSETRON HCL INJ 2MG/ML 2ML 2 MG/ML VIAL IV STA ×2 (16:20→19:54)
--- NOTE | 2019-05-06 17:15 | NUR ---
PATIENT UP TO BATHROOM QUICKLY SAYING SHE IS HAVING DIARRHEA. PATIENT STATED SHE CALLED FOR NURSE FOR TISSUE, BUT NO CALL LIGHT WAS EVERY ACTIVATED, SO SHE SPIT ON THE FLOOR Addendum: 05/06/19 at 1917 by TAI PATIENT HAS CALL LIGHT ATTACHED TO BED, VERBALIZED THAT SHE KNOWS WHERE CALL LIGHT IS
[2019-05-06 17:30] LABS: BASOPHILS % 0.1 % (0.0-1.0); HEMATOCRIT 34.6 % (34.2-44.1); HEMOGLOBIN 10.6 g/dL (12.0-16.0); LYMPHOCYTES # (AUTO) 0.4 (1.0-3.2); LYMPHOCYTES % 2.8 % (18.0-39.1); MEAN CORPUSCULAR HEMOGLOBIN 29.3 pg (28-32); MEAN CORPUSCULAR HGB CONC 30.6 g/dL (31-35); MEAN CORPUSCULAR VOLUME 95.6 fL (81-99); MONOCYTES # (AUTO) 0.3 (0.2-0.8); MONOCYTES % 2.3 % (4.4-11.3); NEUTROPHILS # (AUTO) 12.4 (2.1-6.9); NEUTROPHILS % 93.4 % (38.7-80.0); PLATELET COUNT 250 x10e3/uL (140-360); RED BLOOD COUNT 3.62 x10e6/uL (3.6-5.1); RED CELL DISTRIBUTION WIDTH 17.3 % (11.7-14.4)
[2019-05-06 17:31] LABS: BILIRUBIN,URINE MODERATE (NEGATIVE); CLARITY,URINE CLEAR (CLEAR); KETONES,URINE TRACE (NEGATIVE); LEUKOCYTE ESTERASE ,URINE TRACE (NEGATIVE); NITRITE,URINE NEGATIVE (NEGATIVE); PROTEIN,URINE DIPSTICK 1+ (NEGATIVE); URINE UROBILINOGEN 0.2 mg/dL (0.2 - 1)
[2019-05-06] MEDS ORDERED: KETOROLAC TROMETHAMINE 30 MG/ML VIAL IV STA (17:34)
[2019-05-06 17:37] LABS: COLOR,URINE AMBER (YELLOW)
[2019-05-06 17:47] LABS: ALANINE AMINOTRANSFERASE 47 IU/L (0-55); ALBUMIN 3.3 g/dL (3.5-5.0); ALKALINE PHOSPHATASE 96 IU/L (40-150); ANION GAP 15.5 mmol/L (8-16); BLOOD UREA NITROGEN 7 mg/dL (7-26); BUN/CREATININE RATIO 9 (6-25); CALCIUM 9.2 mg/dL (8.4-10.2); CARBON DIOXIDE 19 mmol/L (22-29); CHLORIDE 102 mmol/L (98-107); EST GLOMERULAR FILTRATION RATE > 60 ML/MIN (60-); GLUCOSE 116 mg/dL (74-118); LIPASE 146 U/L (8-78); POTASSIUM 3.5 mmol/L (3.5-5.1); SODIUM 133 mmol/L (136-145)
[2019-05-06 17:52] LABS: BACTERIA,URINE FEW /HPF; EPITHELIAL CELLS,URINE MANY /LPF; MUCUS,URINE MODERATE (RARE)
[2019-05-06 18:23] LABS: BAND NEUTROPHILS % (MANUAL) 7 %; LYMPHOCYTES % (MANUAL) 3 % (19-48); MONOCYTES % (MANUAL) 3 % (3.4-9.0); NEUTROPHILS % (MANUAL) 87 % (40-74)
[2019-05-06 18:24] LABS: PLATELET ESTIMATE ADEQUATE; PLATELET MORPHOLOGY COMMENT NORMAL
[2019-05-06 18:26] LABS: RBC MORPHOLOGY COMMENT ABNORMAL
[2019-05-06 18:27] LABS: HYPOCHROMASIA SLIGHT; POLYCHROMASIA FEW
[2019-05-06 18:28] LABS: ANISOCYTOSIS SLIGHT
--- NOTE | 2019-05-06 18:28 | NUR ---
WHEN PATIENT OFFERED TYLENOL FOR PAIN SHE STATED, "YOU CAN POCKET THAT TYLENOL, ITS NOT GOING TO DO ANYTHING" Addendum: 05/06/19 at 1928 by TAI PATIENT PULLING OFF LEADS AND BLOOD PRESSURE CUFF
[2019-05-06] MEDS ORDERED: ACETAMINOPHEN 325 MG TAB PO ONE (18:30)
--- NOTE | 2019-05-06 18:40 | NUR ---
PATIENT ON ARRIVAL WAS OKAY WITH DR. FROST IF HE WANTED TO GIVE HER TYLENOL FOR PAIN. NOW PATIENT REFUSING THE TYLENOL AND ESCALATING REQUEST TO MORPHINE OR DILAUDID. USPSET SHE IS NOT GETTING THIS MEDICATION AND THREATENING TO LEAVE. DR. FROST AWARE AN D WILL SPEAK WITH HER WHEN SHE ARRIVES BACK FROM [facility]
--- NOTE | 2019-05-06 18:49 | NUR ---
REPORT TO ROMY Zhang
--- NOTE | 2019-05-06 19:47 | Diagnostic Imaging Report ---
EXAM: CT Abdomen and Pelvis WITH contrast INDICATION: ^abd pain ^[id number] ^191 COMPARISON: None. TECHNIQUE: Abdomen and pelvis were scanned utilizing a multidetector helical scanner from the lung base to the pubic symphysis after administration of IV contrast. Coronal and sagittal reformations were obtained. Dose modulation, iterative reconstruction, and/or weight based adjustment of the mA/kV was utilized to reduce the radiation dose to as low as reasonably achievable. Routine protocol was performed. Scan was performed when during portal venous phase. IV CONTRAST: 100 mL of Isovue-370 ORAL CONTRAST: Water COMPLICATIONS: None RADIATION DOSE: Total DLP: 579.44 mGy*cm Estimated effective dose: (DLP x 0.015 x size factor) mSv CTDIvol has been reviewed. It is below the limits set by the Radiation Protocol Committee (RPC). FINDINGS: LINES and TUBES: None. LOWER THORAX: Unremarkable HEPATOBILIARY: Hepatic steatosis. Hepatomegaly. No focal hepatic lesions. No biliary ductal dilation. GALLBLADDER: Surgically absent. SPLEEN: Splenomegaly. PANCREAS: No focal masses or ductal dilatation. ADRENALS: No adrenal nodules KIDNEYS/URETERS: Kidneys enhance symmetrically. No hydronephrosis. No cystic or solid mass lesions. No stones. GI TRACT: No abnormal distention or evidence of bowel obstruction. There are diverticula within the colon without evidence of diverticulitis. Appendix is normal. Evidence of gastric bypass surgery. Mild thickening of the mildly distended some small bowel loops. PELVIC ORGANS/BLADDER: Unremarkable. LYMPH NODES: No lymphadenopathy. VESSELS: Unremarkable. PERITONEUM / RETROPERITONEUM: No free air or fluid. BONES: L5 laminectomy with L5-S1 space in place. SOFT TISSUES: Unremarkable. IMPRESSION: 1. Some small bowel loops show mild distention and wall thickening, suggestive of gastroenteritis. Otherwise, no acute inflammatory process in the abdomen/pelvis. 2. Hepatic steatosis. 3. Hepatosplenomegaly. Signed by: Dr. Justin Abel MD on 05/06/2019 7:44 PM
[2019-05-06] MEDS ORDERED: MORPHINE SULFATE INJ 4 MG/ML INJ 1ML IV STA (19:54)
[2019-05-06 20:41] VITALS: BP 115/67
[2019-05-06] MEDS ORDERED: SODIUM CHLORIDE 0.9% 50ML 50 ML ONE (21:35)
[2019-05-06] MEDS ORDERED: IOPAMIDOL 370 MG/ML 200 ML INFUS..BTL INJ ONE (21:36)
== END 2019-05-06 20:52 | disposition home or self-care (01) ==
LOC: ER 16:07
DX: R10.33 Periumbilical pain (principal); R11.2 Nausea with vomiting, unspecified; K52.9 Noninfective gastroenteritis and colitis, unspecified
CPT/HCPCS: 36415; 74177; 80053; 81001; 83690; 83880; 85025; 99284; J1885; J2270; J2405; J7030; Q9967

== ENCOUNTER 2021-10-20 22:41 | Emergency (ER) | payer MEDICARE, OTHER ==
[~2021-10-20] VITALS: Ht 165.1 cm; Wt 81.2 kg
[2021-10-20 23:00] LABS: BASOPHILS # (AUTO) 0.1 (0.0-0.1); EOSINOPHILS % 0.2 % (0.0-6.0); HEMATOCRIT 26.6 % (34.2-44.1); HEMOGLOBIN 8.8 g/dL (12.0-16.0); LYMPHOCYTES # (AUTO) 1.8 (1.0-3.2); LYMPHOCYTES % 37.3 % (18.0-39.1); MEAN CORPUSCULAR HEMOGLOBIN 34.8 pg (28-32); MEAN CORPUSCULAR HGB CONC 33.1 g/dL (31-35); MEAN CORPUSCULAR VOLUME 105.1 fL (81-99); MONOCYTES # (AUTO) 0.6 (0.2-0.8); MONOCYTES % 13.1 % (4.4-11.3); NEUTROPHILS # (AUTO) 2.3 (2.1-6.9); PLATELET COUNT 91 x10e3/uL (140-360); RED BLOOD COUNT 2.53 x10e6/uL (3.6-5.1); RED CELL DISTRIBUTION WIDTH 22.5 % (11.7-14.4)
[2021-10-20 23:21] LABS: ALBUMIN 2.7 g/dL (3.5-5.0); ALBUMIN/GLOBULIN RATIO 0.7 (0.8-2.0); ANION GAP 13.7 mmol/L (8-16); CALCIUM 8.8 mg/dL (8.4-10.2); CREATININE, SERUM 0.69 mg/dL (0.57-1.11); POTASSIUM 3.7 mmol/L (3.5-5.1)
[2021-10-20 23:24] LABS: CREATINE KINASE MB 0.8 ng/mL (0-5.0)
[2021-10-20 23:28] LABS: AMPHETAMINES SCREEN,URINE NEGATIVE (NEGATIVE); BENZODIAZEPINES SCREEN,URINE NEGATIVE (NEGATIVE); CLARITY,URINE CLEAR (CLEAR); COLOR,URINE YELLOW (YELLOW); KETONES,URINE NEGATIVE (NEGATIVE); LEUKOCYTE ESTERASE ,URINE TRACE (NEGATIVE); NITRITE,URINE NEGATIVE (NEGATIVE); PHENCYCLIDINE SCREEN,URINE NEGATIVE (NEGATIVE); PROTEIN,URINE DIPSTICK NEGATIVE (NEGATIVE); URINE UROBILINOGEN 0.2 mg/dL (0.2 - 1)
[2021-10-20 23:34] LABS: BACTERIA,URINE FEW /HPF; EPITHELIAL CELLS,URINE FEW /LPF; RBC,URINE 0-5 /HPF (0-5); WBC,URINE (MAN) 0-5 /HPF (0-5)
[2021-10-20 23:35] LABS: AMORPHOUS SEDIMENT,URINE FEW (FEW)
[2021-10-21] MEDS ORDERED: NICOTINE 21 MG/EA PATCH TOP SCH
== END 2021-10-21 01:45 | disposition home or self-care (01) ==
LOC: ER 22:54
DX: R10.84 Generalized abdominal pain (principal); K76.9 Liver disease, unspecified; F10.129 Alcohol abuse with intoxication, unspecified; T74.11XA Adult physical abuse, confirmed, initial encounter; J45.909 Unspecified asthma, uncomplicated; Z85.028 Personal history of other malignant neoplasm of stomach; Z85.828 Personal history of other malignant neoplasm of skin; F17.210 Nicotine dependence, cigarettes, uncomplicated
CPT/HCPCS: 36415; 80053; 80307; 80320; 81001; 82150; 82550; 82553; 83690; 84484; 85025; 93005; 99284; C9113

== ENCOUNTER 2022-02-11 19:29 | Emergency (ER) | payer MEDICARE, OTHER ==
[~2022-02-11] VITALS: Ht 165.1 cm; Wt 81.2 kg
[2022-02-11 20:12] LABS: BASOPHILS % 0.5 % (0.0-1.0); EOSINOPHILS # (AUTO) 0.1 (0.0-0.4); EOSINOPHILS % 1.2 % (0.0-6.0); HEMOGLOBIN 8.8 g/dL (12.0-16.0); LYMPHOCYTES % 16.3 % (18.0-39.1); MEAN CORPUSCULAR HEMOGLOBIN 27.2 pg (28-32); MEAN CORPUSCULAR HGB CONC 30.3 g/dL (31-35); MEAN CORPUSCULAR VOLUME 89.8 fL (81-99); MONOCYTES # (AUTO) 0.6 (0.2-0.8); MONOCYTES % 10.5 % (4.4-11.3); NEUTROPHILS # (AUTO) 4.3 (2.1-6.9); PLATELET COUNT 187 x10e3/uL (140-360); RED BLOOD COUNT 3.23 x10e6/uL (3.6-5.1); RED CELL DISTRIBUTION WIDTH 20.2 % (11.7-14.4)
[2022-02-11 20:17] LABS: INR 0.87; PROTHROMBIN TIME 12.6 seconds (11.9-14.5)
[2022-02-11 21:02] LABS: ALBUMIN 3.9 g/dL (3.5-5.0); ANION GAP 16.1 mmol/L (8-16); CREATININE, SERUM 0.7 mg/dL (0.57-1.11); POTASSIUM 3.1 mmol/L (3.5-5.1)
[2022-02-11] MEDS ORDERED: POTASSIUM CHLORIDE 20 MEQ TAB CR PO STA (21:07)
[2022-02-11 21:48] VITALS: BP 175/85
== END 2022-02-11 21:20 | disposition home or self-care (01) ==
LOC: ER 20:21
DX: R06.02 Shortness of breath (principal); R51.9 Headache, unspecified; Z77.098 Contact with and (suspected) exposure to other hazardous, chiefly nonmedicinal, chemicals; Y92.89 Other specified places as the place of occurrence of the external cause; E87.6 Hypokalemia; D64.9 Anemia, unspecified; J45.909 Unspecified asthma, uncomplicated; Z85.028 Personal history of other malignant neoplasm of stomach; Z85.828 Personal history of other malignant neoplasm of skin
CPT/HCPCS: 36415; 71045; 80053; 84484; 85025; 85610; 93005; 99283